=== PATIENT | male | born 1955 | race Caucasian/White ===

== ENCOUNTER → 2016-11-10 | Outpatient (CLI) | payer MEDICARE, BC | LOC: LABWHC1 11:41 | PROVIDERS: ATTEND Radiology Radiation Oncology | DX: C61 Malignant neoplasm of prostate (principal) | CPT/HCPCS: 36415; 84153 ==

== ENCOUNTER → 2017-03-01 | Outpatient (CLI) | payer MEDICARE, BC | END | disposition home or self-care (01) | LOC: LABWHC1 11:30 | PROVIDERS: ATTEND Radiology Radiation Oncology | DX: C61 Malignant neoplasm of prostate (principal) | CPT/HCPCS: 36415; 84153 ==

== ENCOUNTER → 2017-03-08 | Outpatient (CLI) | payer MEDICARE, BC ==
--- NOTE | 2017-03-08 12:07 | MR ---
EXAMINATION TYPE: MR shoulder LT wo con DATE OF EXAM: 03/08/2017 COMPARISON: NONE HISTORY: lt shoulder pain TECHNIQUE: Multiplanar, multisequence imaging of the left shoulder is performed without contrast. FINDINGS: Rotator Cuff: There is a complete tear of the supraspinatus tendon with retraction to the level just distal to the AC joint. There is a partial through thickness tear of the insertion of the infraspinat us tendon. Tendinosis and partial tear at the insertion of the subscapularis tendon with no retractio n. Acromioclavicular Joint: Hypertrophic change of the AC joint with mass effect upon the rotator cuff. Glenohumeral Joint: There is a small amount of fluid in the joint. Joint space appears narrowed. Infe rior glenohumeral ligament intact. Labrum: Needs are suggestive of an anterior superior labral tear. Biceps Tendon: The bicipital tendon is situated within the bicipital groove. Intracapsular portion of the tendon not well seen. Bone marrow signal: Small cystic change involving the humeral head likely related to chronic tendinop athy and impingement. Other: No additional significant abnormality is appreciated. IMPRESSION: 1. Complete tear of the supraspinatus tendon with retraction the level just distal to the AC joint 2. Partial through thickness tear insertion infraspinatus tendon 3. Biceps tendon is not well seen within the intracapsular portion or the anchor tear not excluded. 4. Impingement secondary to hypertrophic change of the AC joint. 5. partial tear and tendinosis distal margin subscapularis tendon. 6. There is atrophy of the musculature including the infraspinatus and supraspinatus muscles. 7. Anterior superior labral tear
== END | disposition home or self-care (01) ==
LOC: RADMRIMAIN 10:19
PROVIDERS: ATTEND Orthopaedic Surgery
DX: M75.122 Complete rotator cuff tear or rupture of left shoulder, not specified as traumatic (principal); S46.812A Strain of other muscles, fascia and tendons at shoulder and upper arm level, left arm, initial encounter; M89.312 Hypertrophy of bone, left shoulder; S43.402A Unspecified sprain of left shoulder joint, initial encounter; M62.512 Muscle wasting and atrophy, not elsewhere classified, left shoulder

== ENCOUNTER 2017-05-03 10:09 | Day surgery (SDC) | payer MEDICARE, BC ==
[2017-05-02 09:44] VITALS: BMI 37.2
[~2017-05-03 10:09] MED LIST: LACTATED RINGERS 1,000 ML IV SCH
[2017-05-03 11:21] VITALS: TEMP 97.1
[2017-05-03] MEDS ORDERED: LABETALOL 5 MG/ML VIAL MDV ONE (11:22)
[2017-05-03] MEDS ORDERED: PROPOFOL 10 MG/ML 20 ML VIAL IV ONE (11:22)
--- NOTE | 2017-05-03 11:25 | P.GSHP ---
History of Present Illness H&P Date: 05/03/17 Chief Complaint: Colon cancer screening Patient here today for screening colonoscopy. He has not had one previously. He does have a history of radiation cancer and finished radiation treatment last year. Some painful hemorrhoids. Past Medical History Past Medical History: Cancer, Hypertension, Myocardial Infarction (TN), Musculoskeletal Disorder, Osteoarthritis (OA), Prostate Disorder, Rheumatoid Arthritis (RA) Additional Past Medical History / Comment(s): HX PROSTATE CA - RADIATION 2015. DJD. Last Myocardial Infarction Date:: 2012 History of Any Multi-Drug Resistant Organisms: None Reported Past Surgical History: Heart Catheterization With Stent, Orthopedic Surgery Additional Past Surgical History / Comment(s): LEFT KNEE ARTHROSCOPY. LT CTR. FLUID DRAINED OFF LUNG. Past Anesthesia/Blood Transfusion Reactions: No Reported Reaction Date of Last Stent Placement:: 2012 Smoking Status: Never smoker - Past Family History Father Family Medical History: Cancer Medications and Allergies Home Medications Medication Instructions Recorded Confirmed Type Aspirin 325 mg PO DAILY 01/15/15 05/02/17 History Cyclobenzaprine [Flexeril] 10 mg PO BID 01/15/15 05/03/17 History DULoxetine HCL [Cymbalta] 60 mg PO DAILY 01/15/15 05/03/17 History Hydrocodone/Acetaminophen 1 tab PO Q6H PRN 01/15/15 05/03/17 History [Hydrocodon-Acetaminophn 10-325] Nitroglycerin Sl Tabs [Nitrostat] 0.4 mg PO DIRECTED PRN 01/15/15 05/02/17 History Atorvastatin [Lipitor] 80 tab PO HS 01/16/15 05/03/17 History Lisinopril [Zestril] 5 mg PO BID 01/16/15 05/03/17 History Metoprolol Tartrate 25 mg PO BID 01/16/15 05/03/17 History Spironolactone [Aldactone] 25 mg PO DAILY 01/16/15 05/03/17 History Sildenafil [Revatio] 20 mg PO TID PRN 05/02/17 05/03/17 History Allergies Allergy/AdvReac Type Severity Reaction Status Date / Time Sulfa (Sulfonamide Allergy Rash/Hives Verified 05/02/17 09:18 Antibiotics) Surgical - Exam Vital Signs Temp Pulse Resp BP Pulse Ox 97.1 F L 65 16 149/83 99 05/03/17 11:19 05/03/17 11:19 05/03/17 11:19 05/03/17 11:19 05/03/17 11:19 Physical exam: General: Well-developed, well-nourished HEENT: Normocephalic, sclerae nonicteric Abdomen: Nontender, nondistended Extremities: No edema Neuro: Alert and oriented Assessment and Plan (1) Colon cancer screening Narrative/Plan: Will proceed with colonoscopy at this time. Status: Acute
--- NOTE | 2017-05-03 11:44 | P.PCN ---
Date of Procedure: 05/03/17 Procedure(s) Performed: PREOPERATIVE DIAGNOSIS: Colon cancer screening POSTOPERATIVE DIAGNOSIS: 1. Ascending colon polyp 2. Mild diverticulosis 3. Proctitis PROCEDURE: Colonoscopy with snare polypectomy ANESTHESIA: MAC SURGEON: Jonah Winter M.D. SPECIMENS: Polyp ENDOSCOPIC PROCEDURE: The patient was placed on the endoscopy table in the left decubitus position. The Olympus colonoscope was inserted into the anus and passed under direct visualization to the base of the cecum. The appendiceal orifice was visualized. From that point the scope was slowly withdrawn inspecting all surfaces carefully. There were no neoplastic inflammatory or polypoid lesions throughout the cecum. In the mid ascending colon a fold of the colon appeared suspicious for adenomatous tissue. This was removed using the snare with cautery technique. The remainder of the transverse descending and sigmoid colon. In the distal rectum there was proctitis from the recent radiation noted. There was mild diverticulosis. Digital rectal examination revealed mild stricture of the anus. Mild tenderness on exam noted. No significant hemorrhoidal disease identified. The patient was taken to the recovery room in stable condition per anesthesia guidelines. RECOMMENDATIONS: Increase fiber. Await biopsy results.
[2017-05-03 12:14] VITALS: BP 138/75; PULSE 75; RESP 18
== END 2017-05-03 12:41 | disposition home or self-care (01) ==
LOC: ORWHC2ENDO 10:09
PROVIDERS: ATTEND Surgery
DX: Z12.11 Encounter for screening for malignant neoplasm of colon (principal); D12.2 Benign neoplasm of ascending colon; K57.30 Diverticulosis of large intestine without perforation or abscess without bleeding; K62.7 Radiation proctitis; K62.4 Stenosis of anus and rectum; I10 Essential (primary) hypertension; M19.90 Unspecified osteoarthritis, unspecified site; M06.9 Rheumatoid arthritis, unspecified; E78.5 Hyperlipidemia, unspecified; I25.10 Atherosclerotic heart disease of native coronary artery without angina pectoris; I25.2 Old myocardial infarction; Z88.2 Allergy status to sulfonamides; Z79.82 Long term (current) use of aspirin; Z79.899 Other long term (current) drug therapy; Z85.46 Personal history of malignant neoplasm of prostate; Z92.3 Personal history of irradiation; Z95.5 Presence of coronary angioplasty implant and graft; Z80.9 Family history of malignant neoplasm, unspecified
CPT/HCPCS: 45385; 88305; J2704

== ENCOUNTER → 2017-05-23 | Outpatient (CLI) | payer MEDICARE, BC ==
[2017-05-23 10:43] LABS: Basophils # (A) 0.1 k/uL (0-0.2); Basophils % (A) 1 %; CH 32.2; CHCM 32.4; Eosinophils # (A) 0.1 k/uL (0-0.7); Eosinophils % (A) 2 %; HCT 47.6 % (39.0-53.0); HDW 2.19; HGB 15.2 gm/dL (13.0-17.5); Luc # (Auto) 0.22; Luc % (Auto) 4; Lymphocytes # (A) 1.1 k/uL (1.0-4.8); Lymphocytes % (A) 19 %; MCH 31.9 pg (25.0-35.0); MCHC 31.9 g/dL (31.0-37.0); Mean Platelet Volume 6.3; Monocytes # (A) 0.5 k/uL (0-1.0); Monocytes % (A) 8 %; Neutrophils # (A) 3.9 k/uL (1.3-7.7); Neutrophils % (A) 66 %; RBC 4.76 m/uL (4.30-5.90); RDW 12.6 % (11.5-15.5); WBC 5.9 k/uL (3.8-10.6); WBC (Perox) 6.32
[2017-05-23 10:52] LABS: ALT 37 U/L (21-72); AST 21 U/L (17-59); Alkaline Phosphatase 58 U/L (38-126); Anion Gap 10 mmol/L; Blood Urea Nitrogen 15 mg/dL (9-20); Calcium 9.2 mg/dL (8.4-10.2); Carbon Dioxide 26 mmol/L (22-30); Chloride 104 mmol/L (98-107); Cholesterol 163 mg/dL (<200); Glucose 107 mg/dL (74-99); HDL Cholesterol 69 mg/dL (40-60); Non-African American GFR(MDRD) >60 (>60 ml/min/1.73 sqM); Sodium 140 mmol/L (137-145); Total Bilirubin 0.6 mg/dL (0.2-1.3); Total Protein 6.6 g/dL (6.3-8.2)
[2017-05-23 10:59] LABS: Potassium 4.6 mmol/L (3.5-5.1)
[2017-05-23 13:38] LABS: Hemoglobin A1C 5.6 % (4.2-6.1)
== END | disposition home or self-care (01) ==
LOC: LABWHC1 10:08
PROVIDERS: ATTEND Family Medicine
DX: I25.10 Atherosclerotic heart disease of native coronary artery without angina pectoris (principal); E66.9 Obesity, unspecified
CPT/HCPCS: 36415; 80053; 80061; 83036; 84443; 85025

== ENCOUNTER → 2017-06-12 | Outpatient (CLI) | payer MEDICARE, BC | END | disposition home or self-care (01) | LOC: LABWHC1 11:46 | PROVIDERS: ATTEND Radiology Radiation Oncology | DX: C61 Malignant neoplasm of prostate (principal) | CPT/HCPCS: 36415; 84153 ==

== ENCOUNTER 2017-09-15 08:01 | Day surgery (SDC) | payer MEDICARE, BC ==
[2017-09-11 11:13] VITALS: BMI 37.8
--- NOTE | 2017-09-14 09:15 | HP ---
HISTORY AND PHYSICAL CHIEF COMPLAINT: Left shoulder pain. HISTORY OF PRESENT ILLNESS: The patient is a 62-year-old right-hand dominant gentleman on disability who presents with progressive left shoulder pain after a previous injury. He is having pain with overhead use and at night. He has tried previous medications and injections with only partial temporary relief. He notes the pain limits his normal function and activities. PAST MEDICAL HISTORY: Significant for prostate cancer, coronary artery disease, hypertension. PAST SURGICAL HISTORY: Significant for previous cardiac stent placement. CURRENT MEDICATIONS: 1. Aspirin. 2. Atorvastatin. 3. Cymbalta. 4. Doxazosin. 5. Flexeril. 6. Lisinopril. 7. Metoprolol. 8. Nitroglycerin. 9. [place]. 10.Spironolactone. 11.Plavix. ALLERGIES: He notes allergies to SULFA. FAMILY HISTORY: Significant for cancer. SOCIAL HISTORY: Negative for current tobacco or alcohol use. REVIEW OF SYSTEMS: Sixteen-point review of systems otherwise reviewed and is noncontributory. PHYSICAL EXAMINATION: On examination, the patient is approximately 5 feet 8 inches, 251 pounds of endomorphic habitus. HEENT exam is nonfocal. Neck is supple. On examination of his left shoulder, he is tender about the anterior subacromial space and the acromioclavicular joint. He has moderate subacromial crepitus. Active range of motion forward elevation 95 degrees, external rotation with arm to side 45 degrees, internal rotation to L1. Passively I am able to forward elevate him to 160 degrees. Motor strength is 4+ over 5 for abduction and external rotation. Mendoza, Neer and Speed tests are positive. He does have some pain with cross-body adduction. His distal neurovascular exam otherwise appears intact in the left upper extremity. X-rays of the left shoulder obtained in the office show acromioclavicular joint osteoarthrosis along with diminished humeral head to acromial distance. MRI report for left shoulder shows evidence of a supraspinatus and infraspinatus tendon tear with some retraction. There also appears to be a tear of the superior labrum in the intra-articular portion of the biceps. IMPRESSION: 1. Left shoulder symptomatic rotator cuff tear. 2. Left acromioclavicular joint osteoarthrosis. 3. Left bicipital tendinitis. RECOMMENDATIONS: I talked to the patient at length regarding his treatment options. At this point, his shoulder is quite symptomatic. He opts to proceed with surgery. We will plan to proceed with arthroscopic evaluation with probable subacromial decompression, probable rotator cuff repair versus debridement, biceps debridement, and distal clavicular resection. We will likely perform that as an outpatient procedure. Risks and benefits were discussed at length in layman's terms. The patient underwent preoperative cardiac evaluation by Dr. De Leon. He underwent preoperative medical evaluation by Dr. Brambila. MMALIREZAL / TATIN: [id number] /
[~2017-09-15 08:01] MED LIST changes: +DEXAMETHASONE SOD PHOSPHATE 10 MG/ML 1 ML VIAL IV ONE; +MIDAZOLAM 2 MG/2 ML VIAL IV PRN; +MORPHINE SULFATE 4 MG/ML SYRINGE IV PRN; +ONDANSETRON 4 MG/2 ML VIAL IVP ONE; +SCOPOLAMINE 1.5MG/72HR PATCH TRANSDERM ONE; +ceFAZolin IN SWFI 2 GM/20 ML SYRINGE IVP ONE
[2017-09-15] MEDS ORDERED: LACTATED RINGERS 1,000 ML IV ONE (08:12)
[2017-09-15] MEDS ORDERED: LIDOCAINE 1% 20 ML VIAL (10MG/ML) FOR IV START INTRADERMA ONE (08:12)
[2017-09-15] MEDS ORDERED: fentaNYL (PF) 50 MCG/ML 2 ML AMP IV ONE (09:18)
--- NOTE | 2017-09-15 09:37 | P.ONQ ---
Anesthesiology Proc Note - PNB - Peripheral Nerve Block Performed Left Interscalene Single Time Out Performed: Yes (917) Procedure Start Time: :18 Procedure Stop Time: :24 Indication: Acute Post-Operative Pain Sedation Type: Sedate with meaningful contact maintained Preparation: Sterile Prep Position: Supine Catheter: None Needle Types: Facet Needle Size: 50mm (2") Needle Gauge: 20 Technique: Ultrasound Injectate: 0.5% Ropivacaine (see comment for volume) (30 mls Ropivacaine) Blood Aspirated: No Pain Paresthesia on Injection Noted: No Resistance on Injection: Normal Events: Uneventful and Well Tolerated
--- NOTE | 2017-09-15 11:46 | P.OP ---
Date of Procedure: 09/15/17 Preoperative Diagnosis: Left shoulder symptomatic rotator cuff tear Postoperative Diagnosis: 4 cm retracted left rotator cuff tear/superior labral tear/acromioclavicular joint arthritis/previous rupture long head of the biceps Procedure(s) Performed: Left shoulder arthroscopic subacromial decompression/distal clavicular resection /biceps debridement/superior labral debridement/rotator cuff repair Implants: Mitec 4.75 mm corkscrew anchor 2, 5.5 mm corkscrew anchor 2 Anesthesia: TRINI, regional Surgeon: Jovanni Villanueva Ledger Poster #1: Anton Gregorio Estimated Blood Loss (ml): 10 Pathology: none sent Condition: stable Disposition: PACU Indications for Procedure: The patient's a 62-year-old male who presents with progressive left shoulder pain despite conservative measures. A discussion of the risks and benefits of operative intervention versus continued conservative measures was made with the patient. Specific risks of surgery to include infection, neurovascular injury, development of blood clots, possible tendon rerupture, possible postoperative stiffness and need for subsequent procedures was discussed. Informed consent was obtained. Operative Findings: As below Description of Procedure: The patient was brought to the operating room, and after induction of general anesthesia was placed in a beachchair position. Bony prominences were appropriately padded. I examined the left shoulder. There was no gross block to passive motion. There was no gross glenohumeral instability. The left upper extremity was prepped and draped in normal fashion. The bony outlines of the acromion, distal clavicle, and coracoid process were outlined with a skin marker. The glenohumeral joint was inflated with 50 mL of saline utilizing a spinal needle from posterior approach. A posterior portal was made through a 5 mm skin incision 1 cm medial and inferior to the posterior lateral border of the acromion. A blunt trocar was used to easily into the joint. Diagnostic arthroscopy was performed. An anterior portal was made just lateral to the coracoid process entering the joint above the subscapularis tendon. The subscapularis and anterior labrum appeared to be intact. The biceps appeared to previously been ruptured and the remaining portion was debrided back with a motorized shaver. A superior labral tear was also noted that was debrided back to stable base with a motorized shaver. Grade 2/3 chondral changes were noted diffusely involving the humeral head in its central portion. The posterior labrum was intact. The inferior recess was inspected. On inspection of the rotator cuff, a large tear involving the supraspinatus and infraspinatus tendons was noted. This was retracted to the mid humeral head. The arthroscope was then placed in the subacromial space. A lateral portals made through a 5 mm skin incision 2 cm inferior to the anterior lateral border of the acromion. The soft tissue on the undersurface the acromion was debrided with a motorized shaver and with electrocautery clearly defining the anterior medial and lateral borders as well as the distal clavicle. An anterior inferior acromioplasty was performed with a motorized gabriel starting anterolateral, then extending this posteriorly, then extending this medially. I was able to convert to a flat acromion. This was viewed from the posterior and lateral viewing portals. The distal 5 mm of the clavicle was then resected utilizing the motorized gabriel. Attention was then paid towards the rotator cuff. A traction suture was placed to help mobilizes. Subacromial adhesions were bluntly dissected. I was able to bring this back to the greater tuberosity. An accessory superior lateral portal was made through a 4 mm skin incision just off the lateral edge of the acromion. The greater tuberosity was lightly decorticated utilizing a motorized gabriel down a bleeding bony surface. 2 anchors were then placed just off the articular surface. One anchor was unloaded therefore a third anchor was placed. Good purchase obtained. The #2 tape was then passed through the rotator cuff utilizing a scorpion suture passer. A lateral row was created crisscrossing these tapes utilizing 2 anchors. 5.5 mm anchor were placed after appropriately tensioning the repair. Good purchase was obtained. Final arthroscopic view showed adequate repair of the rotator cuff with compression. The arthroscope was then removed. The portals were closed with simple 3-0 nylon suture. A sterile dressing was applied in addition to an abductor brace. The patient was then awoken from general anesthesia and transferred to recovery room in good condition. Blood loss was estimated at 10 mL. No complications were incurred. Sponge and needle counts were correct at the end the case.
[2017-09-15 11:48] VITALS: TEMP 98.6
[2017-09-15 12:12] VITALS: RESP 16
[2017-09-15 12:58] VITALS: PULSE 66
[2017-09-15 13:11] VITALS: BP 157/86
== END 2017-09-15 13:42 | disposition home or self-care (01) ==
LOC: OR 08:01
PROVIDERS: ATTEND Orthopaedic Surgery
DX: S46.012A Strain of muscle(s) and tendon(s) of the rotator cuff of left shoulder, initial encounter (principal); S43.492A Other sprain of left shoulder joint, initial encounter; M19.012 Primary osteoarthritis, left shoulder; S46.112A Strain of muscle, fascia and tendon of long head of biceps, left arm, initial encounter; X58.XXXA Exposure to other specified factors, initial encounter; M75.02 Adhesive capsulitis of left shoulder; M75.22 Bicipital tendinitis, left shoulder; M24.812 Other specific joint derangements of left shoulder, not elsewhere classified; M75.42 Impingement syndrome of left shoulder; I11.9 Hypertensive heart disease without heart failure; I25.10 Atherosclerotic heart disease of native coronary artery without angina pectoris; M51.36 Other intervertebral disc degeneration, lumbar region; N52.9 Male erectile dysfunction, unspecified; M79.7 Fibromyalgia; I25.2 Old myocardial infarction; E78.2 Mixed hyperlipidemia; E66.9 Obesity, unspecified; Z68.38 Body mass index [BMI] 38.0-38.9, adult; Z85.46 Personal history of malignant neoplasm of prostate; Z92.3 Personal history of irradiation; M43.16 Spondylolisthesis, lumbar region; G89.29 Other chronic pain; Z95.5 Presence of coronary angioplasty implant and graft; Z79.899 Other long term (current) drug therapy; Z79.02 Long term (current) use of antithrombotics/antiplatelets; Z79.82 Long term (current) use of aspirin; Z88.2 Allergy status to sulfonamides; Z82.49 Family history of ischemic heart disease and other diseases of the circulatory system
CPT/HCPCS: 64415; 29826; 29827; 29824; C1713 ×3; J2250; J1100; J2405; J3010; J0690

== ENCOUNTER → 2017-09-27 | Outpatient (CLI) | payer MEDICARE, BC | END | disposition home or self-care (01) | LOC: LABWHC1 11:27 | PROVIDERS: ATTEND Radiology Radiation Oncology | DX: C61 Malignant neoplasm of prostate (principal) | CPT/HCPCS: 36415; 84153 ==

== ENCOUNTER → 2018-02-05 | Outpatient (CLI) | payer MEDICARE, BC | END | disposition home or self-care (01) | LOC: LABWHC1 12:24 | PROVIDERS: ATTEND Radiology Radiation Oncology | DX: C61 Malignant neoplasm of prostate (principal) | CPT/HCPCS: 36415; 84153 ==

== ENCOUNTER → 2018-06-14 | Outpatient (CLI) | payer MEDICARE, BC | END | disposition home or self-care (01) | LOC: LABWHC1 11:17 | PROVIDERS: ATTEND Ophthalmology | DX: C61 Malignant neoplasm of prostate (principal) | CPT/HCPCS: 36415; 84153 ==

== ENCOUNTER → 2018-06-18 | Outpatient (CLI) | payer MEDICARE, BC | LOC: LABPAT 11:27 | PROVIDERS: ATTEND Orthopaedic Surgery | DX: Z01.812 Encounter for preprocedural laboratory examination (principal) | CPT/HCPCS: 87070 ==

== ENCOUNTER 2018-06-26 10:19 | Inpatient (IN) | payer MEDICARE, BC ==
[2018-06-19 15:18] VITALS: BMI 40.7
--- NOTE | 2018-06-25 09:18 | HP ---
HISTORY AND PHYSICAL CHIEF COMPLAINT: Right knee pain. HISTORY OF PRESENT ILLNESS: The patient is a 63-year-old retired gentleman who presents with progressive right knee pain secondary to osteoarthrosis despite extensive conservative measures. He notes the pain from his arthritis limits his normal function and activities. PAST MEDICAL HISTORY: Significant for heart disease, prostate cancer, and hypertension. PAST SURGICAL HISTORY: Significant for cardiac stent placement. CURRENT MEDICATIONS: 1. Baclofen. 2. Cymbalta. 3. Ecotrin. 4. Lisinopril. 5. Metoprolol. 6. [place]. 7. Spironolactone. ALLERGIES: He allergies to SULFA. FAMILY HISTORY: Significant for cancer and ALS. SOCIAL HISTORY: Negative for current tobacco or alcohol use. REVIEW OF SYSTEMS: Sixteen-point review of systems otherwise reviewed and is noncontributory. PHYSICAL EXAMINATION: On examination, the patient is approximately 5 feet, 8 inches, 268 pounds of endomorphic habitus with a BMI of 40.75. HEENT exam is nonfocal. Neck is supple. He has painless passive motion of the right hip. Straight leg raise is negative. Active motion right knee -12 to 90 degrees of flexion. He has a large effusion. He is tender about the medial joint line. Collaterals are stable, Azalia's negative, Tiago's is equivocal. He has genu varum alignment. His distal neurovascular exam appears intact in the right lower extremity. Previous weightbearing notch lateral and Merchant views of the right knee obtained in the office show severe medial and patellofemoral compartment narrowing. IMPRESSION: 1. Right knee severe medial and patellofemoral compartment osteoarthrosis. 2. Body mass index 40.75. 3. History of coronary artery disease. RECOMMENDATIONS: I talked to the patient at length regarding his condition and treatment options. At this point, he is severely limited because of pain related to his osteoarthrosis. After thorough discussion, he opts to proceed with surgery. We will plan to proceed with right total knee arthroplasty. We will institute DVT prophylaxis postoperatively. He underwent preoperative medical evaluation by Dr. Brambila in addition to preoperative cardiac evaluation. MMODL / IJN: [id number] /
[~2018-06-26 10:19] MED LIST changes: -DEXAMETHASONE SOD PHOSPHATE 10 MG/ML 1 ML VIAL IV ONE; -LACTATED RINGERS 1,000 ML IV SCH; +LIDOCAINE 1% 20 ML VIAL (10MG/ML) FOR IV START INTRADERMA PRN; +MELOXICAM 7.5 MG TAB PO ONE; -MORPHINE SULFATE 4 MG/ML SYRINGE IV PRN; -ONDANSETRON 4 MG/2 ML VIAL IVP ONE; -SCOPOLAMINE 1.5MG/72HR PATCH TRANSDERM ONE; +VANCOMYCIN 1,750 MG in SODIUM CHLORIDE 0.9% 500 ML 500 ML IVPB ONE; -ceFAZolin IN SWFI 2 GM/20 ML SYRINGE IVP ONE; +fentaNYL (PF) 50 MCG/ML 2 ML AMP IV PRN
[2018-06-26] MEDS ORDERED: ACETAMINOPHEN TAB 500 MG TAB PO ONE (11:45)
[2018-06-26] MEDS: LACTATED RINGERS 1,000 ML IV SCH ×3 (11:47→17:06)
[2018-06-26] MEDS ORDERED: ONDANSETRON 4 MG/2 ML VIAL IVP ONE (11:55)
[2018-06-26] MEDS ORDERED: DEXAMETHASONE SOD PHOSPHATE 4 MG/ML 1 ML VIAL IVP ONE (11:56)
[2018-06-26] MEDS ORDERED: MIDAZOLAM 2 MG/2 ML VIAL IVP ONE (11:59)
[2018-06-26] MEDS ORDERED: TRANEXAMIC ACID 1,000 MG in SODIUM CHLORIDE 0.9% 50 ML IVPB ONE ×4 (12:00)
[2018-06-26] MEDS ORDERED: ROPIVACAINE 1,100 MG, SODIUM CHLORIDE 0.9% 500 ML 330 ML MISCELLANE PRN ×2 (12:20)
--- NOTE | 2018-06-26 12:22 | P.ONQ ---
Anesthesiology Proc Note - PNB - Peripheral Nerve Block Performed Right Adductor Canal Infusion Time Out Performed: Yes Procedure Start Time: 11:59 Procedure Stop Time: 12:06 Indication: Acute Post-Operative Pain, Requested by physician Sedation Type: Sedate with meaningful contact maintained Preparation: Sterile Dressing Position: Supine Catheter: Indwelling Needle Types: On-Q Needle Size: 100mm (4") Needle Gauge: 21 Technique: Ultrasound Injectate: 0.5% Ropivacaine (see comment for volume) (ropi .5 % 20cc)
[2018-06-26] MEDS ORDERED: PROPOFOL 10 MG/ML 20 ML VIAL IV ONE (13:17)
[2018-06-26] MEDS ORDERED: fentaNYL (PF) 50 MCG/ML 2 ML AMP ONE (13:17)
[2018-06-26] MEDS ORDERED: ePHEDrine SULFATE/0.9% NACL/PF 50 MG/5 ML SYRINGE IV ONE (13:17)
[2018-06-26] MEDS ORDERED: MIDAZOLAM 2 MG/2 ML VIAL ONE (13:17)
[2018-06-26] MEDS ORDERED: SODIUM CHLORIDE 0.9% 100 ML BAG ONE (13:17)
[2018-06-26] MEDS ORDERED: TRANEXAMIC ACID 1,000 MG/10 ML VIAL ONE (13:17)
[2018-06-26] MEDS ORDERED: ROPIVACAINE 246.25 MG, EPINEPHrine 0.5 MG, KETOROLAC 30 MG, cloNIDine HCL/PF 80 MCG, WA... MISCELLANE ONE ×5 (13:25)
[2018-06-26] MEDS ORDERED: ceFAZolin 3,000 MG in SODIUM CHLORIDE 0.9% IRRIGATIO 3,000 ML IRRIGATION ONE (13:50)
[2018-06-26] MEDS ORDERED: LACTATED RINGERS 1,000 ML IV ONE ×2 (14:57)
[2018-06-26] MEDS ORDERED: NALOXONE 0.4 MG/ML 1 ML VIAL IV PRN (15:11)
[2018-06-26] MEDS ORDERED: HYDROcodone/APAP 10-325MG 1 EACH TAB PO PRN (15:16)
--- NOTE | 2018-06-26 15:40 | P.OP ---
Date of Procedure: 06/26/18 Preoperative Diagnosis: Severe right knee tricompartmental osteoarthrosis Postoperative Diagnosis: Same Procedure(s) Performed: Right total knee arthroplastycementedposterior stabilized, ORIF iatrogenic nondisplaced right lateral distal femoral condyle fracture Implants: Depuy Attune size 8 cemented femoral component, size 8 cemented tibial component , 9 mm articular surface, 38 mm cemented patellar component. 2 cancellus screws measuring 6.5 mm x 90 mm were placed. Anesthesia: regional, local, spinal Surgeon: Jovanni Villanueva Hostess Party Sales Representative #1: Anton Gregorio Estimated Blood Loss (ml): 100 Pathology: other (Bone fragments) Condition: stable Disposition: PACU Indications for Procedure: The patient's a 63-year-old male who presents with progressive right knee pain secondary to osteoarthrosis despite extensive conservative measures. A discussion of the risks and benefits of operative intervention versus continued conservative measures was made with patient. He opted to proceed with surgery. Operative risks to include infection, neurovascular injury, development of blood clots, possible component loosening, possible component failure, possible fracture, and possible need for subsequent procedures was discussed. Informed consent was obtained. Operative Findings: As below Description of Procedure: The patient was brought to the operating room, and after induction of spinal anesthesia the right lower extremity was prepped and draped in normal fashion. The tourniquet was inflated to 270 mmHg. A longitudinal incision extending 3 finger breaths above the superior pole of the patella extending to the medial aspect of the tibial tubercle was then made. The skin and subcu tissues were divided sharply. Electrocautery was used for hemostasis. A medial parapatellar arthrotomy is performed. The medial soft tissues to include the superficial and deep portions of the medial collateral ligament as well as the medial hamstring tendons were elevated subperiosteally. The proximal medial tibia osteophytes were carefully removed. The patella was everted. A portion of the retropatellar fat pad was excised sharply. The knee was flexed. The anterior cruciate ligament was sacrificed. A starting hole was made in the distal femur 1 cm anterior to the posterior cruciate ligament origin. An intramedullary femoral guide was gently inserted planning on 5 valgus distal cut with 9 mm distal resection. The cutting block was pinned in place. The distal cut was then made. The posterior referencing sizing guide was utilized. I felt size 8 was most appropriate. 3 of external rotation was built into the system and verified off the trans-epicondylar axis and the posterior condyles. The cutting block was pinned in place. The anterior, posterior, and chamfer cuts were then made. The bone fragments were removed. The intercondylar guide was placed and a reciprocating saw was used to make intracondylar cut. The bone was removed in one fragment. The trial component was then placed and was fully seated. There was good anterior to posterior medial to lateral fit. Attention was then paid towards preparing the proximal tibia. An extra medullary guide was utilized in line with the tibial shaft and second metatarsal distally. I planned on a 0 posterior slope with 2 mm resection from the medial compartment. The cutting block was pinned in place. The proximal tibial cut was made in the bone removed in one fragment. The proximal tibia sized most appropriate size 8. The remnants of the medial and lateral menisci were excised at the capsular junction with electrocautery. The trial tibial component was placed along with the trial femoral component and a 9 mm articular surface. At this point I noted a nondisplaced fracture extending from the lateral femoral condyle into the metaphysis. Fixation was obtained utilizing 6.5 mm x 90 mm screws. 2 were placed. There was good compression at the fracture site. Trial reduction was again obtained utilizing the same components. I was able to obtain full flexion and extension with good stability with varus and valgus stress. After several flexion and extension cycles, the tibial rotation was marked with electrocautery in line with the medial one third of the tibial tubercle. Attention was paid towards preparing the patella. A patella reamer was utilized extending to 14 mm bone stock. A good flush cut was made. The patella sized most appropriately 38 mm. The peg holes were drilled. Trial components placed. The knee was taken through range of motion. I had good patellofemoral tracking with no hands technique. The trial components were then removed. The flexion and extension gaps were checked and felt to be symmetric. The posterior soft tissues were injected with ropivacaine. The posterior osteophytes of the distal femur were carefully removed with a curved osteotome. The bony surfaces were prepared with pulsatile lavage and dried. The tibial component was then cemented in placed and was fully seated. Excess cement was removed. The femoral component was cemented in placed and was fully seated. Excess cement was removed. The trial 9 mm articular surface was placed in the knee was put in full extension. The patella component cemented in place. After the cement had sufficiently hardened , the knee was again taken through range of motion. Again I was able to obtain full flexion and extension with good stability with varus and valgus. The trial articular surface was removed and the final one inserted. This was gently impacted. Care taken to avoid any soft tissue interposition. Pulsatile lavage was again utilized. The tourniquet was deflated the proximal a 70 minutes total tourniquet time. Final hemostasis was obtained with electrocautery. The second dose of IV TXA was given. A medial parapatellar arthrotomy was closed with #2 Ethibond suture. The subcutaneous tissues reapproximated interrupted 2-0 Vicryl sutures. The skin was reprepped with 30 subarticular strata fix suture. Skin tape and adhesive was applied. A sterile dressing was applied. The patient was then awoken from sedation and transferred to recovery room in good condition. Blood loss was estimated at 100 mL. Sponge and needle counts were correct in the case. Complications iatrogenic nondisplaced lateral distal femoral condyle fracture.
--- NOTE | 2018-06-26 16:00 | XR ---
EXAMINATION TYPE: XR knee limited RT DATE OF EXAM: 06/26/2018 COMPARISON: None HISTORY: Post TKA TECHNIQUE: 2 view right knee FINDINGS: Tibial and femoral components have been placed. Screws are within the distal femur. Postsu rgical soft tissue changes are present. Anterior superior patellar spurring is present. IMPRESSION: 1. There may be a lateral distal femoral cortical fracture, likely repair with the screws. 2. No additional areas suspicious for an acute fractures identified.
[2018-06-26] MEDS ORDERED: HYDROmorphone 1 MG/ML 1 ML SYRINGE IVP PRN (16:39)
[2018-06-26] MEDS: HYDROmorphone 1 MG/ML 1 ML SYRINGE IVP PRN ×2 (17:06→21:37)
[2018-06-26] MEDS: HYDROcodone/APAP 10-325MG 1 EACH TAB PO PRN (17:34)
[2018-06-26] MEDS: traMADol 50 MG TAB PO SCH ×2 (17:35→21:36)
[2018-06-27] MEDS ORDERED: VANCOMYCIN 1,750 MG in SODIUM CHLORIDE 0.9% 500 ML 500 ML IVPB ONE ×2
[2018-06-27 00:31] VITALS: RESP 16
[2018-06-27] MEDS ORDERED: VANCOMYCIN 1,750 MG in SODIUM CHLORIDE 0.9% 250 ML IVPB ONE (01:30)
[2018-06-27] MEDS: HYDROcodone/APAP 10-325MG 1 EACH TAB PO PRN ×3 (04:41→15:24)
[2018-06-27 07:42] VITALS: PULSE 72
[2018-06-27 07:49] LABS: Basophils % (A) 0 %; Eosinophils % (A) 0 %; HCT 36.9 % (39.0-53.0); HGB 12.4 gm/dL (13.0-17.5); Lymphocytes # (A) 0.9 k/uL (1.0-4.8); Lymphocytes % (A) 10 %; MCH 32.8 pg (25.0-35.0); MCHC 33.6 g/dL (31.0-37.0); MCV 97.7 fL (80.0-100.0); Mean Platelet Volume 6.6; Monocytes # (A) 0.6 k/uL (0-1.0); Monocytes % (A) 7 %; Neutrophils # (A) 7.1 k/uL (1.3-7.7); Neutrophils % (A) 81 %; Platelet Count 228 k/uL (150-450); RBC 3.77 m/uL (4.30-5.90); RDW 12.8 % (11.5-15.5); WBC 8.8 k/uL (3.8-10.6)
[2018-06-27] MEDS: traMADol 50 MG TAB PO SCH ×2 (08:20→12:25)
[2018-06-27] MEDS ORDERED: RIVAROXABAN 10 MG TAB PO SCH (09:00)
--- NOTE | 2018-06-27 09:45 | P.PN ---
Progress Note - Text Progress Note Date: 06/27/18 The patient is status post[1] adductor canal catheter placement. The catheter was placed for postoperative pain control, status post total right knee arthroplasty. Ropivacaine 0.2% is infusing at 5 mLs per hour. The patient has no complaints of right lower extremity numbness or weakness. Patient's VAS score is 3 -10. Assessment: Patient's adductor canal catheter is in place and working appropriately. Plan: continue infusion and adjust it as needed.
--- NOTE | 2018-06-27 12:36 | P.CONS ---
History of Present Illness - Reason for Consult Commendations regarding antihypertensive medications. - History of Present Illness Patient is a pleasant 63-year-old gentleman underwent right knee arthroplasty elective yesterday. Patient is clinically doing well did pass gas did not move his bowel yet. Patient doesn't have a surgical drain. Patient does have history of coronary artery disease with stents years ago patient is on full- strength aspirin now being started on anticoagulation for right knee arthroplasty because of which I'll switch him to a baby aspirin starting tomorrow. Blood pressure is bit elevated will be resumed on his lisinopril. Patient denied any fever chills dysuria nausea vomiting. Review of Systems REVIEW OF SYSTEMS: CONSTITUTIONAL: No fever, no malaise, no fatigue. HEENT: No recent visual problems or hearing problems. Denied any sore throat. CARDIOVASCULAR: No chest pain, orthopnea, PND, no palpitations, no syncope. PULMONARY: No shortness of breath, no cough, no hemoptysis. GASTROINTESTINAL: No diarrhea, no nausea, no vomiting, no abdominal pain. Normoactive bowel sounds. NEUROLOGICAL: No headaches, no weakness, no numbness. HEMATOLOGICAL: Denies any bleeding or petechiae. GENITOURINARY: Denies any burning micturition, frequency, or urgency. MUSCULOSKELETAL/RHEUMATOLOGICAL: Denies any joint pain, swelling, or any muscle pain. ENDOCRINE: Denies any polyuria or polydipsia. The rest of the 14-point review of systems is negative. Past Medical History Past Medical History: Cancer, Fibromyalgia, Hypertension, Myocardial Infarction (IN), Musculoskeletal Disorder, Osteoarthritis (OA), Prostate Disorder, Rheumatoid Arthritis (RA) Additional Past Medical History / Comment(s): HX PROSTATE CA - RADIATION 2015. DJD,back pain, pt reports "abscessed teeth" enc to notify dr odom pre- procedure Last Myocardial Infarction Date:: 2012 LAD History of Any Multi-Drug Resistant Organisms: None Reported Past Surgical History: Heart Catheterization With Stent, Orthopedic Surgery Additional Past Surgical History / Comment(s): LEFT KNEE ARTHROSCOPY. LT CTR. FLUID DRAINED OFF between LUNG space. Past Anesthesia/Blood Transfusion Reactions: No Reported Reaction Additional Past Anesthesia/Blood Transfusion Reaction / Comm: no hx blood transfusion Date of Last Stent Placement:: 2012 Past Psychological History: No Psychological Hx Reported Smoking Status: Never smoker Past Alcohol Use History: Occasional Past Drug Use History: Marijuana Additional Drug Use History / Comment(s): USE 1-2X PER DAY. - Past Family History Father Family Medical History: Cancer Medications and Allergies Home Medications Medication Instructions Recorded Confirmed Type Aspirin 325 mg PO DAILY 01/15/15 06/26/18 History Cyclobenzaprine [Flexeril] 10 mg PO HS PRN 01/15/15 06/26/18 History Nitroglycerin Sl Tabs [Nitrostat] 0.4 mg PO Q5M PRN 01/15/15 06/26/18 History Atorvastatin [Lipitor] 80 tab PO HS 01/16/15 06/26/18 History Metoprolol Tartrate 25 mg PO BID 01/16/15 06/26/18 History Spironolactone [Aldactone] 25 mg PO DAILY 01/16/15 06/26/18 History Sildenafil [Revatio] 20 mg PO TID PRN 05/02/17 06/26/18 History Oxybutynin Chloride 5 mg PO BID 06/19/18 06/26/18 History Silodosin [Rapaflo] 8 mg PO DAILY 06/19/18 06/26/18 History DULoxetine HCL [Cymbalta] 30 mg PO TID 06/26/18 06/26/18 History Hydrocodone/Acetaminophen [Singer 1 tab PO Q6H PRN 06/26/18 06/26/18 History 10-325] Lisinopril [Zestril] 10 mg PO BID 06/26/18 06/26/18 History Allergies Allergy/AdvReac Type Severity Reaction Status Date / Time Sulfa (Sulfonamide Allergy Rash/Hives Verified 06/26/18 16:52 Antibiotics) Physical Exam Vitals: Vital Signs Temp Pulse Pulse Pulse Resp BP Pulse Ox 06/27/18 07:00 97.8 F 72 16 164/82 97 06/27/18 00:39 16 06/26/18 23:00 99 F 87 16 132/67 95 06/26/18 20:00 98.0 F 86 18 158/77 95 06/26/18 18:15 85 18 151/81 95 06/26/18 18:00 73 18 145/68 96 06/26/18 17:45 77 18 160/70 96 06/26/18 17:30 76 18 177/97 97 06/26/18 17:15 72 18 159/80 98 06/26/18 17:00 69 18 159/88 98 06/26/18 16:45 70 18 150/79 98 06/26/18 16:30 98 F 75 18 130/67 98 06/26/18 16:27 97 F L 75 20 98 06/26/18 16:16 67 16 132/65 97 06/26/18 16:00 67 16 148/67 99 06/26/18 15:45 61 16 115/69 99 06/26/18 15:32 97 F L 66 16 134/60 97 06/26/18 15:30 78 16 151/72 95 06/26/18 15:15 83 16 152/74 95 06/26/18 15:00 80 16 154/76 95 06/26/18 14:45 80 16 161/83 96 06/26/18 14:30 79 16 151/77 97 06/26/18 14:15 76 16 154/78 96 06/26/18 14:00 79 16 157/81 95 06/26/18 13:45 73 16 141/69 96 06/26/18 13:30 98 F 77 16 135/66 96 Intake and Output 06/26/18 06/27/18 06/27/18 22:59 06:59 14:59 Intake Total 840 Output Total 400 75 Balance 440 -75 Intake: IV 300 Oral 540 Output: Urine 300 75 Estimated Blood Loss 100 Other: Voiding Method Urinal # Voids 2 Weight 121.563 kg PHYSICAL EXAMINATION: GENERAL: The patient is alert and oriented x3, not in any acute distress. Well developed, well nourished. HEENT: Pupils are round and equally reacting to light. EOMI. No scleral icterus. No conjunctival pallor. Normocephalic, atraumatic. No pharyngeal erythema. No thyromegaly. CARDIOVASCULAR: S1 and S2 present. No murmurs, rubs, or gallops. PULMONARY: Chest is clear to auscultation, no wheezing or crackles. ABDOMEN: Soft, nontender, nondistended, normoactive bowel sounds. No palpable organomegaly. MUSCULOSKELETAL: Deferred to orthopedic surgery EXTREMITIES: No cyanosis, clubbing, or pedal edema. NEUROLOGICAL: Gross neurological examination did not reveal any focal deficits. SKIN: No rashes. Results CBC & Chem 7: 06/27/18 07:09 Labs: Abnormal Lab Results - Last 24 Hours (Table) 06/27/18 Range/Units 07:09 RBC 3.77 L (4.30-5.90) m/uL Hgb 12.4 L (13.0-17.5) gm/dL Hct 36.9 L (39.0-53.0) % Lymphocytes # 0.9 L (1.0-4.8) k/uL Assessment and Plan Plan: -Right knee arthroplasty: Due to prophylaxis impairment as per primary service postoperative day one. -Coronary artery disease: Patient will be resumed on aspirin and statin tomorrow -Depression -Hypertension lisinopril will be resumed at 10 mg monitor blood pressure -Hyperlipidemia -Benign prostatic hypertrophy For above-mentioned chronic medical problems patient will be resumed and continued on appropriate home medications medication or consideration was done.
--- NOTE | 2018-06-27 12:44 | P.PN ---
Subjective Progress Note Date: 06/27/18 Principal diagnosis: Status post right total knee arthroplasty Patient is seen today resting his hospital bed, this was present at bedside. His pain is well-controlled. He denies any acute changes. He denies any headaches, lightheadedness, chest pain or shortness of breath. Objective - Vital Signs Vital signs: Vital Signs Temp 97.8 F 06/27/18 07:00 Pulse 72 06/27/18 07:00 Resp 16 06/27/18 07:00 BP 164/82 06/27/18 07:00 Pulse Ox 97 06/27/18 07:00 Intake & Output 06/26/18 06/27/18 06/27/18 18:59 06:59 18:59 Intake Total 1801 540 Output Total 400 75 Balance 1401 465 Weight 121.563 kg Intake: IV 1801 Oral 540 Output: Urine 300 75 Estimated Blood Loss 100 Other: Voiding Method Urinal # Voids 2 - Exam Right lower extremity: Incision is clean, dry, and intact. The prineo tape is in good condition. There is minimal soft tissue swelling and ecchymosis surrounding the medial and lateral aspects of the incision. Calf is soft, no tenderness with palpation. Plantar flexion, dorsiflexion, EHL, FHL are intact. Sensory exam to light touch throughout the extremity is intact, dorsal pedis pulses 2+. - Labs CBC & Chem 7: 06/27/18 07:09 Labs: Abnormal Lab Results - Last 24 Hours (Table) 06/27/18 Range/Units 07:09 RBC 3.77 L (4.30-5.90) m/uL Hgb 12.4 L (13.0-17.5) gm/dL Hct 36.9 L (39.0-53.0) % Lymphocytes # 0.9 L (1.0-4.8) k/uL Assessment and Plan Plan: Assessment: Postop day #1 status post right total knee arthroplasty, ORIF iatrogenic nondisplaced right lateral distal femoral condyle fracture Plan: Pain control, continue current oral medication GI and DVT prophylaxis, Eliquis 2.5mg bid for 2 weeks Wound care instructions were discussed Home physical therapy and nursing after discharge Prescription was placed for an IROM hinged knee brace, motion is from 0-90. Weight bearing restrictions at 50%, utilize walker at all times when ambulating Medical recommendations Discharge planning: Patient will likely be discharged home today after brace is fitted Time with Patient: Less than 30
--- NOTE | 2018-06-27 12:51 | P.DS ---
Providers Date of admission: 06/26/18 10:19 Expected date of discharge: 06/27/18 Attending physician: Jovanni Villanueva Consults: 06/26/18 15:16 Consult Physician Routine Consulting Provider: Emy Garza Consult Reason/Comments: Medical Management Do you want consulting provider notified?: Yes Primary care physician: Camelia Jenkins [facility] Course: Date of admission: 06/26/2018 Date of discharge: 06/27/2018 Admission diagnosis: Status post right total knee arthroplasty, ORIF iatrogenic nondisplaced right lateral distal femoral condyle fracture Discharge diagnosis: Same Attending physician: Dr. Villanueva Surgical procedures: Right total knee arthroplasty, ORIF iatrogenic nondisplaced right lateral distal femoral condyle fracture Brief history: Patient is a 63-year-old male with a history of progressive primary right knee osteoarthritis. At this point patient has failed conservative treatment measures and has opted to proceed with a elective right total knee arthroplasty Hospital course: Details of patient's surgery can be found in operative report. Patient tolerated the procedure well and was subsequently transported to orthopedic floor. Patient's orthopeidc and medical care was provided daily. Patient had daily laboratory tests performed for evaluation of overall blood counts. Patient had daily physical therapy to include strengthening range of motion as well as education with walker ambulation. Patient had daily CPM usage as part of their physical therapy program.] Patient was treated with Xarelto for their postoperative DVT prophylaxis during their inpatient stay. Patient was noted to have a relatively uneventful postoperative course. Patient reported satisfactory pain control with oral pain medications by postoperative day 0. Patient showed satisfactory progress with physical therapy. Patient moved steadily through the program and had no difficulty meeting the goals by postoperative day 1. Given patient's otherwise satisfactory course and having met physical therapy goals, plan is to discharge patient home on postoperative day 1. Discharge condition/disposition: Patient will be discharged home in stable condition. Discharge medications: Instructions are given on resumption of patient's normal daily medications per primary care recommendation, in addition patient will be prescribed [place] 10 mg/325 mg, tramadol 50 mg, Eliquis 2.5mg. Discharge instructions: 1. Wound care and infection precautions, keep incision dry and covered while showering, no lotions, creams, moisturizers. No soaking, tubs, pools, hottubs. Do not scrub over the incision. 2. Weight-bear as tolerated with walker / cane until follow-up. 3. Ice and elevate when necessary. Do not exceed 20 minutes per hour with ice pack. 4. Utilize compression sleeve until seen at first follow up appointment. 5. Visiting nursing care. 6. Home physical therapy including home CPM. 7. Pain meds and anticoagulants per prescription. 8. Pain medication has potential to cause constipation. Increase oral fluid and fiber intake. Contact primary care provider if you have not had a bowel movement within 48 hours after discharge 9. No anti-inflammatory medication until discussed at first post operative visit, this including Motrin, Aleve, Mobic, Diclofenac. 10. Follow up in office at 2 weeks postop with Sharif Gregorio PA-C 11. Follow up with your primary care doctor 7-10 days after discharge. 12. Contact [facility] with any questions, . Procedures: Right total knee arthroplasty, ORIF iatrogenic nondisplaced right lateral distal femoral condyle fracture Patient Condition at Discharge: Good Plan - Discharge Summary Discharge Rx Participant: Yes New Discharge Prescriptions: New Apixaban [Eliquis] 2.5 mg PO BID #30 tab Hydrocodone/Acetaminophen [[place] 10-325] 1 - 2 each PO Q6H PRN #56 tab PRN Reason: Pain traMADol HCl [Ultram] 50 mg PO Q6H PRN #28 tab PRN Reason: Pain No Action Nitroglycerin Sl Tabs [Nitrostat] 0.4 mg PO Q5M PRN PRN Reason: Chest Pain Cyclobenzaprine [Flexeril] 10 mg PO HS PRN PRN Reason: Pain Metoprolol Tartrate 25 mg PO BID Atorvastatin [Lipitor] 80 tab PO HS Spironolactone [Aldactone] 25 mg PO DAILY Sildenafil [Revatio] 20 mg PO TID PRN PRN Reason: E.D. Silodosin [Rapaflo] 8 mg PO DAILY Oxybutynin Chloride 5 mg PO BID DULoxetine HCL [Cymbalta] 30 mg PO TID Lisinopril [Zestril] 10 mg PO BID Discharge Medication List Nitroglycerin Sl Tabs [Nitrostat] 0.4 mg PO Q5M PRN 01/15/15 [History] Atorvastatin [Lipitor] 80 tab PO HS 01/16/15 [History] Metoprolol Tartrate 25 mg PO BID 01/16/15 [History] Spironolactone [Aldactone] 25 mg PO DAILY 01/16/15 [History] Sildenafil [Revatio] 20 mg PO TID PRN 05/02/17 [History] Oxybutynin Chloride 5 mg PO BID 06/19/18 [History] Silodosin [Rapaflo] 8 mg PO DAILY 06/19/18 [History] DULoxetine HCL [Cymbalta] 30 mg PO TID 06/26/18 [History] Lisinopril [Zestril] 10 mg PO BID 06/26/18 [History] Apixaban [Eliquis] 2.5 mg PO BID #30 tab 06/27/18 [Rx] Hydrocodone/Acetaminophen [[place] 10-325] 1 - 2 each PO Q6H PRN #56 tab 06/27/18 [Rx] traMADol HCl [Ultram] 50 mg PO Q6H PRN #28 tab 06/27/18 [Rx] Follow up Appointment(s)/Referral(s): [facility], [NON-STAFF] - Anton Gregorio PAC [PHYSICIAN HAZARDOUS MATERIAL SPECIALIST] - 2 Weeks Activity/Diet/Wound Care/Special Instructions: Walker and Hinged Knee Brace - [facility] - will deliver to bedside before discharge -[phone] Orthopedic Discharge Instructions: 1. Wound care and infection precautions, keep incision dry and covered while showering, no lotions, creams, moisturizers. No soaking, pools, hot tubs. Do not scrub over incision. 2. Weight-bear as tolerated with walker / cane until follow-up. 3. Ice and elevate when necessary. Do not exceed 20 minutes per hour with ice pack. 4. Utilize compression sleeve until seen at first follow up appointment. 5. Pain meds and anticoagulants per prescription. 6. Pain medication has potential to cause constipation. Increase oral fluid and fiber intake. Contact primary care provider if you have not had a bowel movement within 48 hours after discharge. 7. No anti-inflammatory medication until discussed at first post operative visit, this including Motrin, Aleve, Mobic, Diclofenac. 8. Follow up in office at 2 weeks postop with Sharif Gregorio PA-C 9. Follow up with your primary care doctor 7-10 days after discharge. 10. Contact [facility] with any questions, . Discharge Disposition: HOME WITH HOME HEALTH SERVICES
[2018-06-27 14:42] VITALS: BP 143/78; TEMP 98.1
[2018-06-27] MEDS ORDERED: DULoxetine HCL 30 MG CAPSULE.DR PO SCH (16:00)
[2018-06-27] MEDS ORDERED: METOPROLOL TARTRATE 25 MG TAB PO SCH (21:00)
[2018-06-27] MEDS ORDERED: CYCLOBENZAPRINE 10 MG TAB PO PRN (21:00)
[2018-06-27] MEDS ORDERED: ATORVASTATIN 80 MG TAB PO SCH (21:00)
[2018-06-28] MEDS ORDERED: LISINOPRIL 10 MG TAB PO SCH (09:00)
[2018-06-28] MEDS ORDERED: ASPIRIN 81 MG PO SCH (09:00)
--- NOTE | 2018-06-29 10:32 | CDI ---
Last Revision, July 2017 Documentation Clarification Form Date: 06/29/18 From: Freya Alfonso Phone: If you have question, contact Chelsea Shelton, at [phone] M-F 8:30 am to 6pm Admit Date: 06/26/2018 10:19:00 AM Patient Name: Steve Alexander Visit Number: [id number] Discharge Date: 06/27/18 ATTENTION: The Clinical Documentation Specialists (CDI) and [facility] Coding Staff appreciate your assistance in clarifying documentation. Please respond to the clarification below the line at the bottom and electronically sign. The CDI & [facility] Coding staff will review the response and follow-up if needed. Please note: Queries are made part of the Legal Health Record. If you have any questions, please contact the author of this message via ITS. Jovanni Apodaca MD Patient has been described as being 5 foot 8 inches tall, weighing 268 pounds with a BMI of 40.75. In order to capture the severity of condition associated with patient BMI of 40.75, a clinical diagnoses needs to be documented by the physician. Please clarify: Obese Morbidly obese Other, please specify ____ Unable to determine Morbid obesity MTDD
== END 2018-06-27 17:29 | disposition home health service (06) | DRG 470 ==
LOC: 2ORMAIN 10:19 → 4SSUR 15:45
PROVIDERS: ADMIT Orthopaedic Surgery; ATTEND Orthopaedic Surgery
PROC: 0QSB04Z Reposition Right Lower Femur with Internal Fixation Device, Open Approach (ICD-10-PCS; 2018-06-26)
PROC: 0SRC0J9 Replacement of Right Knee Joint with Synthetic Substitute, Cemented, Open Approach (ICD-10-PCS; principal; 2018-06-26 13:20)
DX: M17.11 Unilateral primary osteoarthritis, right knee (principal); S72.424A Nondisplaced fracture of lateral condyle of right femur, initial encounter for closed fracture; Z68.41 Body mass index [BMI] 40.0-44.9, adult; I10 Essential (primary) hypertension; I25.10 Atherosclerotic heart disease of native coronary artery without angina pectoris; M06.9 Rheumatoid arthritis, unspecified; F32.9 Major depressive disorder, single episode, unspecified; E66.01 Morbid (severe) obesity due to excess calories; N40.0 Benign prostatic hyperplasia without lower urinary tract symptoms; M79.7 Fibromyalgia; X58.XXXA Exposure to other specified factors, initial encounter; Y92.234 Operating room of hospital as the place of occurrence of the external cause; I25.2 Old myocardial infarction; Z95.5 Presence of coronary angioplasty implant and graft; Z79.82 Long term (current) use of aspirin; Z79.899 Other long term (current) drug therapy; Z88.2 Allergy status to sulfonamides; Z92.3 Personal history of irradiation; Z85.46 Personal history of malignant neoplasm of prostate
CPT/HCPCS: 85025; 88300

== ENCOUNTER → 2018-07-25 | Outpatient (CLI) | payer MEDICARE, BC ==
--- NOTE | 2018-07-25 11:15 | XR ---
EXAMINATION TYPE: XR knee limited RT DATE OF EXAM: 07/25/2018 CLINICAL HISTORY: pain TECHNIQUE: Two views of the right knee are obtained. COMPARISON: 06/26/2018 FINDINGS: Previously lateral supracondylar fracture is again noted. Stable total knee arthroplasty yaron fuller. Moderate suprapatellar joint effusion. IMPRESSION: Stable evaluation of the knee. Increasing joint effusion.
== END | disposition home or self-care (01) ==
LOC: RADXRMAIN 10:49
PROVIDERS: ATTEND Orthopaedic Surgery
DX: Z09 Encounter for follow-up examination after completed treatment for conditions other than malignant neoplasm (principal); M25.461 Effusion, right knee; Z96.651 Presence of right artificial knee joint

== ENCOUNTER → 2018-10-09 | Outpatient (CLI) | payer MEDICARE, BC | END | disposition home or self-care (01) | LOC: LABWHC1 11:10 | PROVIDERS: ATTEND Radiology Radiation Oncology | DX: C61 Malignant neoplasm of prostate (principal); Z92.3 Personal history of irradiation | CPT/HCPCS: 36415; 84153 ==

== ENCOUNTER → 2019-04-24 | Outpatient (CLI) | payer MEDICARE, BC | END | disposition home or self-care (01) | LOC: LABWHC1 12:21 | PROVIDERS: ATTEND Radiology Radiation Oncology | DX: C61 Malignant neoplasm of prostate (principal); Z92.3 Personal history of irradiation | CPT/HCPCS: 36415; 84153 ==

== ENCOUNTER → 2019-06-07 | Outpatient (CLI) | payer MEDICARE, BC ==
[2019-06-07 17:57] LABS: Appearance,Urine Clear (Clear); Bilirubin,Urine Negative (Negative); Blood,Urine Negative (Negative); Color,Urine Yellow; Glucose,Urine (UA) Negative (Negative); Ketones,Urine Negative (Negative); Leukocyte Esterase,Urine Negative (Negative); Nitrite,Urine Negative (Negative); PH, Urine 5.5 (5.0-8.0); Protein,Urine Negative (Negative); Specific Gravity,Urine 1.018 (1.001-1.035); Urobilinogen,Urine <2.0 mg/dL (<2.0)
== END ==
LOC: LABWHC1 14:54
PROVIDERS: ATTEND Radiology Radiation Oncology
DX: C61 Malignant neoplasm of prostate (principal); Z92.3 Personal history of irradiation; Z85.46 Personal history of malignant neoplasm of prostate
CPT/HCPCS: 81003

== ENCOUNTER 2019-07-05 08:59 | Observation (INO) | payer MEDICARE, BC ==
[2019-07-05] MEDS ORDERED: SODIUM CHLORIDE 0.9% 1,000 ML IV STA (09:10)
[2019-07-05] MEDS ORDERED: ASPIRIN 81 MG PO STA (09:10)
--- NOTE | 2019-07-05 09:25 | ED ---
Chest Pain HPI - General Chief Complaint: Chest Pain Stated Complaint: chest pain Time Seen by Provider: 07/05/19 09:09 Source: patient, RN notes reviewed, old records reviewed Mode of arrival: ambulatory Limitations: no limitations - History of Present Illness Initial Comments: Patient is a 64-year-old male presents emergency department today with onset of chest pain, nausea, and pain radiating towards his back starting at 4:30 this morning. She reports the pain seems to be between his shoulder blades, worse on the right side. Patient reports that he took 2 nitro at 4:30 and on 7:30 did have some relief of his pain. He has had a heart attack in the past and has a stent in his LAD. He reports that his last heart attack was in 2012. Patient reports that this feels similar to his last heart attack. Patient states that he has had none of his medications this morning including his blood pressure medications. He did not take an aspirin at this time. Patient states that he's had no fevers or chills cough. He complained of some shortness of breath on exertion. Patient has a history of hyper-tension, nonsmoker. - Related Data Home Medications Medication Instructions Recorded Confirmed Nitroglycerin Sl Tabs [Nitrostat] 0.4 mg PO Q5M PRN 01/15/15 07/05/19 Metoprolol Tartrate 25 mg PO BID 01/16/15 07/05/19 Spironolactone [Aldactone] 25 mg PO DAILY 01/16/15 07/05/19 Sildenafil [Revatio] 40 mg PO DAILY PRN 05/02/17 07/05/19 Oxybutynin Chloride 5 mg PO BID 06/19/18 07/05/19 DULoxetine HCL [Cymbalta] 30 mg PO TID 06/26/18 07/05/19 Cyclobenzaprine [Flexeril] 10 mg PO TID PRN 07/05/19 07/05/19 Hydrocodone/Acetaminophen [Wren 1 tab PO QID PRN 07/05/19 07/05/19 10-325] Lisinopril 20 mg PO DAILY 07/05/19 07/05/19 Montelukast [Singulair] 10 mg PO HS 07/05/19 07/05/19 Tamsulosin HCl [Flomax] 0.4 mg PO BID 07/05/19 07/05/19 Allergies Allergy/AdvReac Type Severity Reaction Status Date / Time Sulfa (Sulfonamide Allergy Rash/Hives Verified 07/05/19 10:56 Antibiotics) Review of Systems ROS Statement: Those systems with pertinent positive or pertinent negative responses have been documented in the HPI. ROS Other: All systems not noted in ROS Statement are negative. EKG Findings - EKG Comments: EKG Findings:: EKG performed at 918 shows sinus rhythm, normal EKG. Ventricular rate of 61 bpm. Verbal is 182 ms. QRS duration is 90 ms. QT QTc is 400/402 ms. Past Medical History Past Medical History: Cancer, Hypertension, Myocardial Infarction (IN), Muscul oskeletal Disorder, Osteoarthritis (OA), Prostate Disorder, Rheumatoid Arthritis (RA) Additional Past Medical History / Comment(s): HX PROSTATE CA - RADIATION 2015. DJD. Last Myocardial Infarction Date:: 2012 LAD History of Any Multi-Drug Resistant Organisms: None Reported Past Surgical History: Heart Catheterization With Stent, Orthopedic Surgery Additional Past Surgical History / Comment(s): LEFT KNEE ARTHROSCOPY. LT CTR. FLUID DRAINED OFF between LUNG space. Past Anesthesia/Blood Transfusion Reactions: No Reported Reaction Additional Past Anesthesia/Blood Transfusion Reaction / Comment(s): no hx blood transfusion Date of Last Stent Placement:: 2012 Past Psychological History: No Psychological Hx Reported Smoking Status: Never smoker Past Alcohol Use History: Occasional Past Drug Use History: Marijuana - Past Family History Father Family Medical History: Cancer General Exam - General Exam Comments Initial Comments: Patient is a 64-year-old male presents today for concern for chest pain. Patient is a moderate discomfort. Limitations: no limitations General appearance: alert, in no apparent distress Head exam: Present: atraumatic, normocephalic, normal inspection Eye exam: Present: normal appearance, PERRL, EOMI. Absent: scleral icterus, conjunctival injection, periorbital swelling ENT exam: Present: normal exam, normal oropharynx, mucous membranes moist Neck exam: Present: normal inspection Respiratory exam: Present: normal lung sounds bilaterally. Absent: respiratory distress, wheezes, rales, rhonchi, stridor Cardiovascular Exam: Present: regular rate, normal rhythm, normal heart sounds. Absent: systolic murmur, diastolic murmur, rubs, gallop, clicks GI/Abdominal exam: Present: soft, normal bowel sounds. Absent: distended, tenderness, guarding, rebound, rigid Extremities exam: Present: normal inspection, full ROM, normal capillary refill. Absent: tenderness, pedal edema, joint swelling, calf tenderness Back exam: Present: normal inspection Neurological exam: Present: alert, oriented X3, CN II-XII intact Psychiatric exam: Present: normal affect, normal mood Skin exam: Present: warm, dry, intact, normal color. Absent: rash Course Vital Signs 07/05/19 07/05/19 07/05/19 09:05 09:47 11:00 Temperature 97.9 F Pulse Rate 62 64 88 Respiratory 18 16 18 Rate Blood Pressure 175/92 107/66 131/80 O2 Sat by Pulse 97 96 95 Oximetry Chest Pain MDM - MDM Patient is a 64-year-old male presents today for evaluation for concern for chest pain, with radiation towards his back. Sensory reports that in the morning he did take 2 nitro once at 4:30 once at 7:30 when he had recurrent pain. This Patient EKG shows no acute changes. Initial troponin test is negative. Blood work was otherwise reviewed and unremarkable. Due to the concern for radiation for this back we did complete a CT thoracic aorta. This is negative for dissection. Patient was informed of his results. He rested comfortably that on reevaluation after first dose of pain meds and some fluids. I discussed with the concern for other previous heart attack and history, we would admit the Patient for with heparin and close cardiac monitoring. Patient is agreeable to this treatment plan. Disposition Clinical Impression: Unstable angina Disposition: ADMITTED IP TO THIS [facility] Condition: Good Instructions (If sedation given, give patient instructions): Chest Pain (ED) Is patient prescribed a controlled substance at d/c from ED?: No Referrals: Gregory Denise MD [Primary Care Provider] - 1-2 days Time of Disposition: 11:36
[2019-07-05] MEDS: NITROGLYCERIN SL TABS 0.4 MG TAB SUBLINGUAL STA ×2 (09:35→09:48)
[2019-07-05 09:55] LABS: ALT 28 U/L (21-72); AST 24 U/L (17-59); African American GFR (CKD) >90 (>60 ml/min/1.73 sqM); Albumin 4.2 g/dL (3.5-5.0); Alkaline Phosphatase 46 U/L (38-126); Amylase 39 U/L (30-110); Anion Gap 8 mmol/L; Basophils % (A) 1 %; Blood Urea Nitrogen 15 mg/dL (9-20); Calcium 9.2 mg/dL (8.4-10.2); Carbon Dioxide 26 mmol/L (22-30); Chloride 105 mmol/L (98-107); Eosinophils # (A) 0.2 k/uL (0-0.7); Eosinophils % (A) 3 %; Glucose 121 mg/dL (74-99); HCT 43.1 % (39.0-53.0); HGB 14.9 gm/dL (13.0-17.5); Lymphocytes % (A) 19 %; MCH 32.9 pg (25.0-35.0); MCHC 34.6 g/dL (31.0-37.0); Mean Platelet Volume 5.6; Monocytes # (A) 0.4 k/uL (0-1.0); Monocytes % (A) 7 %; Neutrophils # (A) 3.7 k/uL (1.3-7.7); Neutrophils % (A) 67 %; Non-African American GFR(CKD) 88 (>60 ml/min/1.73 sqM); Platelet Count 246 k/uL (150-450); Potassium 4.5 mmol/L (3.5-5.1); RBC 4.53 m/uL (4.30-5.90); RDW 12.6 % (11.5-15.5); Sodium 139 mmol/L (137-145); Total Bilirubin 0.7 mg/dL (0.2-1.3); Total Protein 7.2 g/dL (6.3-8.2); WBC 5.5 k/uL (3.8-10.6)
[2019-07-05 10:01] LABS: INR 0.9 (<1.2); Partial Thromboplastin Time 24.8 sec (22.0-30.0); Prothrombin Time 10.1 sec (9.0-12.0)
--- NOTE | 2019-07-05 10:05 | XR ---
EXAMINATION TYPE: XR chest 2V DATE OF EXAM: 07/05/2019 COMPARISON: 01/14/2015 HISTORY: Shortness of breath TECHNIQUE: Frontal and lateral views of the chest are obtained. FINDINGS: Scattered senescent parenchymal changes noted. Hyperinflation compatible with COPD. Chronic appearing patchy density right lower lobe with nodular component at the right costophrenic an gle. No new areas of infiltrate appreciated at this time. Heart size is stable. Mediastinal structures are stable and grossly unremarkable. No evidence for hilar prominence. Degenerative changes dorsal spine. IMPRESSION: 1. Chronic appearing patchy density right lower lobe with nodular component at the right costophrenic angle. No new areas of infiltrate appreciated at this time.
[2019-07-05 11:05] VITALS: RESP 18
--- NOTE | 2019-07-05 11:19 | CT ---
EXAMINATION TYPE: CT angio thor/abd pel aorta DATE OF EXAM: 07/05/2019 COMPARISON: None HISTORY: Upper back and chest pain with shortness of breath. CT DLP: 2385.4 mGycm CONTRAST: CTA thoracic and abdominal aorta with 3-D reconstruction is performed and with IV Contrast, patient i njected with 100 mL of Isovue 370. Contrast CTA of the thoracic and abdominal aorta was performed from the lung apex through the base of the pelvis. 3-D reconstruction imaging obtained at a separate workstation. CT Chest: THORACIC AORTA: There is no evidence for aneurysm. No dissection or mediastinal hematoma. Mild ath eromatous changes are seen. 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 The lungs are ki r and free of infiltrate or atelectasis. No pulmonary nodule or mass is detected. No pleural effusi on or CT evidence of interstitial lung disease. MEDIASTINUM: The heart is not enlarged. No evidence for mediastinal mass or adenopathy. HILAR STRUCTURES: No evidence for mass. No hilar adenopathy is appreciated. OTHER: No significant abnormality. CONTRAST CT ABDOMEN AND PELVIS ABDOMENAL AORTA: No evidence for abdominal aortic aneurysm. No dissection. Iliac vessels are symmet arthur and patent. LIVER/GB- No significant abnormality is seen. PANCREAS- No significant abnormality is seen. SPLEEN- No significant abnormality is seen. ADRENALS- No significant abnormality is seen. KIDNEYS/BLADDER- No significant abnormality is seen. BOWEL- No Significant abnormality GENITAL ORGANS: No gross abnormality seen. LYMPH NODES- No greater than 1cm abdominal or pelvic lymph nodes are appreciated. OSSEOUS STRUCTURES-severe degenerative change throughout the lumbar spine. Grade 2 anterolisthesis L5 on S1. OTHER- No significant abnormality is seen. IMPRESSION- 1. No evidence for aneurysm or dissection of the aorta.
[2019-07-05] MEDS ORDERED: NITROGLYCERIN SL TABS 0.4 MG TAB SUBLINGUAL PRN (11:37)
[2019-07-05] MEDS ORDERED: HEPARIN SODIUM,PORCINE 5,000 UNIT/ML 1 ML VIAL IV ONE (11:37)
[2019-07-05] MEDS ORDERED: HEPARIN SOD,PORK IN 0.45% NACL 25,000 UNIT in 0.45% NACL 1 250ML.BAG IV SCH (11:45)
[2019-07-05] MEDS ORDERED: INFLUENZA VACCINE (6 MOS+) 60 MCG/0.5 ML SYRINGE IM ONE (12:26)
[2019-07-05] MEDS ORDERED: PNEUMOCOCCAL VACC-PNEUMOVAX 23 25 MCG/0.5 ML VIAL IM ONE (12:26)
--- NOTE | 2019-07-05 12:49 | P.CRDCN ---
History of Present Illness History of present illness: HISTORY OF PRESENTING ILLNESS This is a pleasant 64-year-old male past medical history significant for coronary artery disease in the setting of an acute myocardial infarction status post PCI to the LAD, hypertension and arthritis. He presented with chest pain, nausea and shortness of breath. He follows in the office with Dr. De Leon. We have been asked to see him in consultation for chest pain. He states he woke up at 0430 with an overall sick feeling. He states he was nauseated and his stomach felt quesy along with a discomfort in the right scapular region with intermittent radiation to the right anterior chest wall. He also felt like he couldn't take in a deep breath. He denies palpitations, dizziness, vomiting or diaphoresis. He took 3 SL nitro with no relief. The symptoms persisted and around 0730 he took another 3 nitro with no relief. He then decided to come to the hospital. He was given 1 SL nitro and the discomfort improved. He continues to have a mild pain in the right scapular region that is mildly reproducible on exam. His nausea has improved, in fact he is eating a donut. He states his symptoms feel similar to his NE from 2012. Most recently in 2014 he underwent a heart catheterization revealing patent stent in the LAD with mild intimal disease of the RCA and distal left main with mild mid anterior wall motion hypokinesia. DIAGNOSTICS EKG reveals sinus mechanism x2. Chest xray negative for an acute process with chronic patchy density right lower lobe. Laboratory reviewed, CBC unremarkable, sodium 139, potassium 4.5, creatinine 0.93, magnesium 2.0, troponin negative 1, proBNP 109. Current cardiac medications include lisinopril 20 mg daily, Aldactone 25 mg daily, metoprolol 25 mg twice a day. REVIEW OF SYSTEMS At the time of my exam: CONSTITUTIONAL: Denies fever or chills. CARDIOVASCULAR: Denies chest pain, shortness of breath, orthopnea, PND or palpitations. RESPIRATORY: Denies cough. GASTROINTESTINAL: Denies abdominal pain, diarrhea, constipation, nausea or vomiting. MUSCULOSKELETAL: Complains of reproducible right scapular pain. NEUROLOGIC: Denies numbness, tingling or weakness. ENDOCRINE: Denies fatigue, weight change, polydipsia or polyurina. GENITOURINARY: Denies burning, hematuria or urgency with micturation. HEMATOLOGIC: Denies history of anemia or bleeding. PHYSICAL EXAMINATION Blood pressure 136/75 heart rate 74 afebrile and maintaining oxygen saturaiton on room air. CONSTITUTIONAL: No apparent distress. Obese. HEENT: Head is normocephalic. Pupils are equal, round. Sclerae anicteric. Mucous membranes of the mouth are moist. No JVD. No carotid bruit. CHEST EXAMINATION: Lungs are clear to auscultation. No chest wall tenderness is noted on palpation or with deep breathing. HEART EXAMINATION: Regular rate and rhythm. S1, S2 heard. No murmurs, gallops or rub. ABDOMEN: Soft, mild epigastric tenderness on palpation. Positive bowel sounds. EXTREMITIES: 2+ peripheral pulses, no lower extremity edema and no calf tenderness. NEUROLOGIC EXAMINATION: Patient is awake, alert and oriented x3. ASSESSMENT Chest pain with associated nausea, similar to previous NE. No EKG changes. History of coronary artery disease s/p PCI LAD History of myocardial infarction 2012 Hypertension Arthritis PLAN Continue to obtain serial cardiac enzymes to rule out an acute event. Continue heparin infusion. Resume aldactone, lopressor and lisinopril as previously ordered. Decrease aspirin to 81 mg daily. Check ultrasound of the gallbladder. Obtain 2D echocardiogram and doppler study to assess cardiac structure and function. Further recommendations to follow based on clinical course. Thank you kindly for this consultation. Nurse Practitioner note has been reviewed, I agree with a documented findings and plan of care. Patient was seen and examined. Past Medical History Past Medical History: Coronary Artery Disease (CAD), Cancer, Chest Pain / Angina, Fibromyalgia, Hypertension, Myocardial Infarction (NE), Musculoskeletal Disorder, Osteoarthritis (OA), Prostate Disorder, Rheumatoid Arthritis (RA) Additional Past Medical History / Comment(s): Prostate cancer with radiation in 2015, BPH, arthritis in multiple joints, chronic low back pain with bilateral sciatica, pt states he put his back out earlier this week, bronchitis, pneumotho rax with chest tube in 2001 after a fall, hemorrhoids years ago. Last Myocardial Infarction Date:: 2012 History of Any Multi-Drug Resistant Organisms: None Reported Past Surgical History: Heart Catheterization, Heart Catheterization With Stent, Joint Replacement, Orthopedic Surgery Additional Past Surgical History / Comment(s): 2014 cardiac cath, 2012 PCI with stents to LAD, L knee arthroscopy, total R knee, L shoulder arthroscopy, L carpal tunnel release, colonoscopy. Past Anesthesia/Blood Transfusion Reactions: No Reported Reaction Additional Past Anesthesia/Blood Transfusion Reaction / Comment(s): no hx blood transfusion Date of Last Stent Placement:: 2012 Smoking Status: Never smoker - Past Family History Father Family Medical History: Cancer Additional Family Medical History / Comment(s): kidney/bone cancer- of at the age of 59yrs. Mother Family Medical History: Musculoskeletal Disorder, Neurologic Disorder Additional Family Medical History / Comment(s): Mother of Ghada Braeden's disease Medications and Allergies Home Medications Medication Instructions Recorded Confirmed Type Nitroglycerin Sl Tabs [Nitrostat] 0.4 mg PO Q5M PRN 01/15/15 07/05/19 History Metoprolol Tartrate 25 mg PO BID 01/16/15 07/05/19 History Spironolactone [Aldactone] 25 mg PO DAILY 01/16/15 07/05/19 History Sildenafil [Revatio] 40 mg PO DAILY PRN 05/02/17 07/05/19 History Oxybutynin Chloride 5 mg PO BID 06/19/18 07/05/19 History DULoxetine HCL [Cymbalta] 30 mg PO TID 06/26/18 07/05/19 History Cyclobenzaprine [Flexeril] 10 mg PO TID PRN 07/05/19 07/05/19 History Hydrocodone/Acetaminophen [[place] 1 tab PO QID PRN 07/05/19 07/05/19 History 10-325] Lisinopril 20 mg PO DAILY 07/05/19 07/05/19 History Montelukast [Singulair] 10 mg PO HS 07/05/19 07/05/19 History Tamsulosin HCl [Flomax] 0.4 mg PO BID 07/05/19 07/05/19 History Allergies Allergy/AdvReac Type Severity Reaction Status Date / Time Sulfa (Sulfonamide Allergy Rash/Hives Verified 07/05/19 10:56 Antibiotics) Physical Exam Vitals: Vital Signs Temp Pulse Resp BP Pulse Ox 07/05/19 12:07 98 F 74 18 136/75 96 07/05/19 11:00 88 18 131/80 95 07/05/19 09:47 64 16 107/66 96 07/05/19 09:05 97.9 F 62 18 175/92 97 Intake and Output 07/04/19 07/05/19 07/05/19 22:59 06:59 14:59 Other: Weight 117.934 kg Results 07/05/19 09:29 07/05/19 09:29 Cardiac Enzymes 07/05/19 07/05/19 Range/Units 09:29 09:29 AST 24 (17-59) U/L Troponin I <0.012 (0.000-0.034) ng/mL Coagulation 07/05/19 Range/Units 09:29 PT 10.1 (9.0-12.0) sec APTT 24.8 (22.0-30.0) sec CBC 07/05/19 Range/Units 09:29 WBC 5.5 (3.8-10.6) k/uL RBC 4.53 (4.30-5.90) m/uL Hgb 14.9 (13.0-17.5) gm/dL Hct 43.1 (39.0-53.0) % Plt Count 246 (150-450) k/uL Comprehensive Metabolic Panel 07/05/19 Range/Units 09:29 Sodium 139 (137-145) mmol/L Potassium 4.5 (3.5-5.1) mmol/L Chloride 105 (98-107) mmol/L Carbon Dioxide 26 (22-30) mmol/L BUN 15 (9-20) mg/dL Creatinine 0.93 (0.66-1.25) mg/dL Glucose 121 H (74-99) mg/dL Calcium 9.2 (8.4-10.2) mg/dL AST 24 (17-59) U/L ALT 28 (21-72) U/L Alkaline Phosphatase 46 (38-126) U/L Total Protein 7.2 (6.3-8.2) g/dL Albumin 4.2 (3.5-5.0) g/dL Current Medications Generic Name Dose Route Start Last Admin Trade Name Freq PRN Reason Stop Dose Admin Aspirin 81 mg 07/06/19 09:00 Aspirin PO DAILY RANJANA Sodium Chloride 1,000 mls @ 100 mls/hr 07/05/19 09:10 07/05/19 09:35 Saline 0.9% IV 07/05/19 19:09 100 mls/hr .Q10H STA Administration Heparin Sodium/Sodium Chloride 250 mls @ 10.001 mls/hr 07/05/19 11:45 07/05/19 12:15 25,000 unit/ Sodium Chloride IV 8.48 units/kg/hr .Q24H RANJANA 10.001 mls/hr Administration Protocol 8.48 UNITS/KG/HR Lisinopril 20 mg 07/05/19 12:30 Zestril PO DAILY RANJANA Metoprolol Tartrate 25 mg 07/05/19 12:30 Lopressor PO BID RANJANA Nitroglycerin 0.4 mg 07/05/19 11:37 Nitrostat SUBLINGUAL Q5M PRN Chest Pain Spironolactone 25 mg 07/05/19 12:30 Aldactone PO DAILY RANJANA Intake and Output 07/04/19 07/05/19 07/05/19 22:59 06:59 14:59 Other: Weight 117.934 kg Patient Weight 07/06/19 06:59 Weight 117.934 kg 07/05/19 09:29 07/05/19 09:29
[2019-07-05] MEDS: LISINOPRIL 20 MG TAB PO SCH (13:18)
[2019-07-05] MEDS: METOPROLOL TARTRATE 25 MG TAB PO SCH ×2 (13:18→20:10)
[2019-07-05] MEDS: SPIRONOLACTONE 25 MG TAB PO SCH (13:18)
[2019-07-05] MEDS ORDERED: CYCLOBENZAPRINE 10 MG TAB PO PRN (15:54)
[2019-07-05] MEDS ORDERED: SILDENAFIL 20 MG TAB PO PRN (15:54)
--- NOTE | 2019-07-05 16:01 | US ---
EXAMINATION TYPE: US gallbladder DATE OF EXAM: 07/05/2019 COMPARISON: CT 07/05/2019 CLINICAL HISTORY: pain, nausea. Midline chest and right shoulder pain; history of NV and coronary art thai stent EXAM MEASUREMENTS: Liver Length: 19.0 cm Gallbladder Wall: 0.2 cm CBD: 0.4 cm Right Kidney: 10.9 x 5.9 x 5.3 cm Pancreas: hyperechoic Liver: hyperechoic and enlarged suggests fatty liver, with probable focal sparing noted near gallbla dder. This is a typical location for focal fatty sparing. Fatty infiltration limits evaluation for he patic masses. Gallbladder: wnl Evidence for sonographic Clark's sign: no CBD: wnl Right Kidney: No hydronephrosis or masses seen IMPRESSION: 1. No sonographic evidence of cholelithiasis nor acute cholecystitis. 2. Sonographic findings most commonly related to hepatic steatosis. Correlate with liver function terri ts.
[2019-07-05] MEDS: HYDROcodone/APAP 10-325MG 1 EACH TAB PO PRN ×2 (16:09→21:37)
[2019-07-05] MEDS: DULoxetine HCL 30 MG CAPSULE.DR PO SCH ×2 (16:53→20:10)
[2019-07-05] MEDS ORDERED: HEPARIN SODIUM,PORCINE 5,000 UNIT/ML 1 ML VIAL IV PRN (19:32)
[2019-07-05] MEDS: TAMSULOSIN 0.4 MG CAP.ER.24H PO SCH (20:09)
[2019-07-05] MEDS: OXYBUTYNIN CHLORIDE 5 MG TAB PO SCH (20:10)
[2019-07-05] MEDS ORDERED: ATORVASTATIN 80 MG TAB PO SCH (21:00)
[2019-07-05] MEDS ORDERED: MONTELUKAST 10 MG TAB PO SCH (21:00)
[2019-07-06] MEDS: HYDROcodone/APAP 10-325MG 1 EACH TAB PO PRN (03:30)
[2019-07-06 04:15] LABS: Cholesterol 136 mg/dL (<200); HDL Cholesterol 57 mg/dL (40-60); LDL Cholesterol,Calculated 69 mg/dL (0-99); Triglycerides 52 mg/dL (<150)
--- NOTE | 2019-07-06 08:13 | P.PN ---
Subjective Progress Note Date: 07/06/19 Principal diagnosis: Chest pain This is a 64-year-old gentleman with history of ischemic heart disease with a previous stent placement of the left anterior descending coronary artery, who presented to the hospital with chest pain that woke him up at night. The pain was on the right side of the chest and scapular area with some radiation to the front of the chest. Associated with some nausea and also shortness of breath. His EKGs and cardiac enzymes have been negative. Computed tomography scan did not reveal any dissecting aneurysm. Patient is currently stable. Echoca rdiogram report is pending. We discussed the option of doing a stress test versus cardiac catheterization. Patient preferred to go home and have a stress test. I'm going to get a d-dimer value. If that is normal and requires a normal and and if patient remains stable without any recurrence of chest pain with activity, patient will be discharged home. He'll have outpatient stress test and follow-up with Dr. De Leon. Objective - Vital Signs Vital signs: Vital Signs Temp 98.1 F 07/06/19 04:00 Pulse 56 L 07/06/19 04:00 Resp 18 07/06/19 04:00 BP 119/65 07/06/19 04:00 Pulse Ox 98 07/06/19 04:00 Intake & Output 07/05/19 07/06/19 07/06/19 18:59 06:59 18:59 Intake Total 240 305.896 Balance 240 305.896 Weight 117.934 kg Intake: Intake, IV Titration 285.896 Amount Heparin Sod,Pork in 0.45% 185.896 NaCl 25,000 unit In 0.45 % NaCl 1 250ml.bag @ 8.48 UNITS/KG/HR 10.001 mls/ hr IV .Q24H RANJANA Rx#: [id number] Sodium Chloride 0.9% 1, 100 000 ml @ 100 mls/hr IV . Q10H STA Rx#:[id number] Oral 240 20 Other: Voiding Method Toilet Toilet - Exam GENERAL EXAM: Patient is alert and oriented and doesn't appear to be in any acute distress HEENT: Normocephalic. Normal reaction of pupils, equal size, normal range of extraocular motion. No erythema or exudates in the throat. NECK: No masses, no nuchal rigidity. CHEST: No chest wall deformity. LUNGS: Equal air entry with no crackles or wheeze. HEART: S1 and S2 normal with no audible mumurs or gallops. Regular rhythm, femorals equal on both sides.. ABDOMEN: No hepatosplenomegaly, normal bowel sounds, no guarding or rigidity. SKIN: No rashes CENTRAL NERVOUS SYSTEM: No focal deficits. EXTREMITIES: No cyanosis, clubbing or edema. - Labs CBC & Chem 7: 07/05/19 09:29 07/05/19 09:29 Labs: Abnormal Lab Results - Last 24 Hours (Table) 07/05/19 07/06/19 Range/Units 09:29 02:57 APTT 40.8 H (22.0-30.0) sec Glucose 121 H (74-99) mg/dL Assessment and Plan (1) Right-sided chest pain Current Visit: Yes Status: Acute Code(s): R07.9 - CHEST PAIN, UNSPECIFIED SNOMED Code(s): 424916509 (2) History of coronary artery disease Current Visit: Yes Status: Acute Code(s): Z86.79 - PERSONAL HISTORY OF OTHER DISEASES OF THE CIRCULATORY SYSTEM SNOMED Code(s): 362283525 Plan: Review of echocardiogram. Get d-dimer value. Increase activity. If the above test are normal and if patient doesn't have any recurrence of chest pain, patient could be discharged home. Outpatient stress test and follow up
[2019-07-06] MEDS: OXYBUTYNIN CHLORIDE 5 MG TAB PO SCH (08:41)
[2019-07-06] MEDS: LISINOPRIL 20 MG TAB PO SCH (08:42)
[2019-07-06] MEDS: SPIRONOLACTONE 25 MG TAB PO SCH (08:42)
[2019-07-06] MEDS: DULoxetine HCL 30 MG CAPSULE.DR PO SCH (08:42)
[2019-07-06] MEDS: TAMSULOSIN 0.4 MG CAP.ER.24H PO SCH (08:42)
[2019-07-06] MEDS ORDERED: ASPIRIN 81 MG PO SCH (09:00)
[2019-07-06] MEDS ORDERED: ASPIRIN 325 MG TAB PO SCH (09:00)
[2019-07-06 09:42] LABS: D-Dimer 0.65 mg/L FEU (<0.60); Partial Thromboplastin Time 47.5 sec (22.0-30.0)
--- NOTE | 2019-07-06 10:02 | ECHOF ---
Referral Reason:cp MEASUREMENTS -------- HEIGHT: 180.3 cm WEIGHT: 117.9 kg BP: 188/81 IVSd: 1.0 cm (0.6 - 1.1) LVIDd: 4.6 cm (3.9 - 5.3) LVPWd: 1.4 cm (0.6 - 1.1) EDV(Teich): 100 ml IVSs: 1.6 cm LVIDs: 1.7 cm LVPWs: 1.6 cm %IVS Thck: 56 % ESV(Teich): 8 ml EF(Teich): 92 % %FS: 64 % SV(Teich): 92 ml RVIDd: 3.0 cm (< 3.3) Ao Diam: 3.1 cm (2.0 - 3.7) LA Diam: 3.8 cm (2.7 - 3.8) AV Cusp: 2.2 cm (1.5 - 2.6) EPSS: 2.0 cm MV E Jimbo: 0.81 m/s MV DecT: 199 ms MV Dec [place]: 4.1 m/s MV A Jimbo: 0.76 m/s MV E/A Ratio: 1.07 MV PHT: 58 ms MR Vmax: 1.32 m/s MR maxP.95 mmHg AV Vmax: 1.60 m/s AV maxP.25 mmHg TR Vmax: 1.60 m/s TR maxP.28 mmHg RAP: 5.00 mmHg RVSP: 15.28 mmHg MV EF SLOPE: 111.63 mm/s (70 - 150) MV EXCURSION: 20.13 mm (> 18.000) FINDINGS -------- Sinus rhythm. This was a technically difficult study with suboptimal views. The left ventricular size is normal. There is mild concentric left ventricular hypertrophy. Overa ll left ventricular systolic function is normal with, an EF between 55 - 60 %. The right ventricle is normal in size. The left atrial size is normal. The right atrial size is normal. Lumason used Aortic valve is trileaflet and is mildly thickened. The mitral valve is normal. The mitral valve leaflets are mildly thickened. There is trace mitral regurgitation. The tricuspid valve appears structurally normal. Trace tricuspid regurgitation present. Right jennifer tricular systolic pressure is normal at < 35 mmHg. There is no pulmonic regurgitation present. The aortic root size is normal. IVC Not well visulized. There is no pericardial effusion. CONCLUSIONS -------- 1. Sinus rhythm. 2. This was a technically difficult study with suboptimal views. 3. The left ventricular size is normal. 4. There is mild concentric left ventricular hypertrophy. 5. Overall left ventricular systolic function is normal with, an EF between 55 - 60 %. 6. The right ventricle is normal in size. 7. The left atrial size is normal. 8. The right atrial size is normal. 9. Lumason used 10. Aortic valve is trileaflet and is mildly thickened. 11. The mitral valve is normal. 12. The mitral valve leaflets are mildly thickened. 13. There is trace mitral regurgitation. 14. The tricuspid valve appears structurally normal. 15. Trace tricuspid regurgitation present. 16. Right ventricular systolic pressure is normal at < 35 mmHg. 17. There is no pulmonic regurgitation present. 18. The aortic root size is normal. 19. IVC Not well visulized. 20. There is no pericardial effusion. BEAM DYER: Chika Barone RDCS
--- NOTE | 2019-07-06 10:39 | CT ---
EXAMINATION TYPE: CT chest angio for PE DATE OF EXAM: 07/06/2019 COMPARISON: None. HISTORY: Elevated d dimer, chest pain CT DLP: 941.8 mGycm Automated exposure control for dose reduction was used. CONTRAST: CT Chest for pulmonary embolism performed with with IV Contrast, patient injected with 100 mL of Isov ue 370. FINDINGS: There is atelectatic change present in the lung bases. There is no significant axillary, me diastinal or hilar adenopathy. There is no evidence of pulmonary embolus. The aorta is normal in caliber without evidence of dissection. IMPRESSION: THIS EXAMINATION IS NEGATIVE FOR PULMONARY EMBOLUS.
--- NOTE | 2019-07-06 10:58 | P.HPIM ---
History of Present Illness H&P Date: 07/05/19 Chief Complaint: Chest pain Patient is a 64-year-old male with a known history of coronary artery disease, [place] 6 years back status post stent placement, hypertension, prostate cancer with radiation in 2016, BPH, osteoarthritis and chronic low back pain and sciatica as well as rheumatoid arthritis came to ER with the complaints of chest pain started below the right shoulder blade and radiated below the right breast margin. Sharp pain. Associated with shortness of breath. Denied any nausea vomiting or abdominal pain. No diaphoresis. No headache or dizziness or lighth eadedness. Patient says that he took 2 nitro tablets at home without much relief. Patient says that his symptoms are similar to previous [place]. Came to ER for further evaluation. No cough or sputum production. Denied any fever or chills. Patient has been taking his medications regularly. EKG showed normal sinus rhythm. Troponin 1 negative. Chest x-ray showed chronic appearing patchy density right lower lobe with nodular component at the right costophrenic angle. No new areas of infiltrate appreciated this time. CT thorax showed no evidence of aneurysm or dissection of the aorta. Ultrasound abdomen showed no sonographic evidence of cholelithiasis R acute cholecystitis. Sonographic findings most commonly related to hepatic steatosis. Correlate with liver function tests. BNP not elevated. Liver function tests within normal limits. Review of Systems Constitutional: Patient denies any fever or chills . No generalized weakness or weight loss. Abdomen: Patient denied nausea vomiting and diarrhea and abdominal pain. Cardiovascular: Patient denies any chest pain or short of breath no palpitations. Respiratory: patient denied any cough is from production. No shortness of breath Neurologic: Patient denied any numbness or tingling headache. Musculoskeletal: Patient denies any complaints of joint swelling or deformity. Skin: Negative Psychiatric: Negative Endocrine: No heat or cold intolerance. No recent weight gain. Genitourinary: No dysuria or hematuria. All other 14 point ROS negative except the above Past Medical History Past Medical History: Coronary Artery Disease (CAD), Cancer, Chest Pain / Angina, Fibromyalgia, Hypertension, Myocardial Infarction ([place]), Musculoskeletal Disorder, Osteoarthritis (OA), Prostate Disorder, Rheumatoid Arthritis ([place]) Additional Past Medical History / Comment(s): Prostate cancer with radiation in 2016, BPH, arthritis in multiple joints, chronic low back pain with bilateral sciatica, pt states he put his back out earlier this week, bronchitis, pneumothorax with chest tube in 2001 after a fall, hemorrhoids years ago. Last Myocardial Infarction Date:: 2012 History of Any Multi-Drug Resistant Organisms: None Reported Past Surgical History: Heart Catheterization, Heart Catheterization With Stent, Joint Replacement, Orthopedic Surgery Additional Past Surgical History / Comment(s): 2014 cardiac cath, 2012 PCI with stents to LAD, L knee arthroscopy, total R knee, L shoulder arthroscopy, L carpal tunnel release, colonoscopy. Past Anesthesia/Blood Transfusion Reactions: No Reported Reaction Additional Past Anesthesia/Blood Transfusion Reaction / Comment(s): no hx blood transfusion Date of Last Stent Placement:: 2012 Smoking Status: Never smoker - Past Family History Father Family Medical History: Cancer Additional Family Medical History / Comment(s): kidney/bone cancer- of at the age of 59yrs. Mother Family Medical History: Musculoskeletal Disorder, Neurologic Disorder Additional Family Medical History / Comment(s): Mother of Ghada Braeden's disease Medications and Allergies Home Medications Medication Instructions Recorded Confirmed Type Nitroglycerin Sl Tabs [Nitrostat] 0.4 mg PO Q5M PRN 01/15/15 07/05/19 History Metoprolol Tartrate 25 mg PO BID 01/16/15 07/05/19 History Spironolactone [Aldactone] 25 mg PO DAILY 01/16/15 07/05/19 History Sildenafil [Revatio] 40 mg PO DAILY PRN 05/02/17 07/05/19 History Oxybutynin Chloride 5 mg PO BID 06/19/18 07/05/19 History DULoxetine HCL [Cymbalta] 30 mg PO TID 06/26/18 07/05/19 History Cyclobenzaprine [Flexeril] 10 mg PO TID PRN 07/05/19 07/05/19 History Hydrocodone/Acetaminophen [[place] 1 tab PO QID PRN 07/05/19 07/05/19 History 10-325] Lisinopril 20 mg PO DAILY 07/05/19 07/05/19 History Montelukast [Singulair] 10 mg PO HS 07/05/19 07/05/19 History Tamsulosin HCl [Flomax] 0.4 mg PO BID 07/05/19 07/05/19 History Allergies Allergy/AdvReac Type Severity Reaction Status Date / Time Sulfa (Sulfonamide Allergy Rash/Hives Verified 07/05/19 10:56 Antibiotics) Physical Exam Vitals: Vital Signs Temp Pulse Pulse Resp BP BP BP 07/05/19 19:28 97.9 F 57 L 18 131/75 07/05/19 15:51 98.3 F 58 L 18 149/84 07/05/19 12:44 98.4 F 78 18 188/81 07/05/19 12:35 98 F 74 18 136/75 07/05/19 12:07 98 F 74 18 136/75 07/05/19 11:00 88 18 131/80 07/05/19 09:47 64 16 107/66 07/05/19 09:05 97.9 F 62 18 175/92 Pulse Ox 07/05/19 19:28 96 07/05/19 15:51 93 L 07/05/19 12:44 95 07/05/19 12:35 96 07/05/19 12:07 96 07/05/19 11:00 95 07/05/19 09:47 96 07/05/19 09:05 97 Intake and Output 07/05/19 07/05/19 07/06/19 14:59 22:59 06:59 Intake Total 419.841 Balance 419.841 Intake: Intake, IV Titration 179.841 Amount Heparin Sod,Pork in 0.45% 79.841 NaCl 25,000 unit In 0.45 % NaCl 1 250ml.bag @ 8.48 UNITS/KG/HR 10.001 mls/ hr IV .Q24H RANJANA Rx#: [id number] Sodium Chloride 0.9% 1, 100 000 ml @ 100 mls/hr IV . Q10H STA Rx#:[id number] Oral 240 Other: Voiding Method Toilet Toilet Weight 117.934 kg PHYSICAL EXAMINATION: Patient is lying in the bed comfortably, no acute distress, awake alert and oriented.. HEENT: Normocephalic. Neck is supple. Pupils reactive. Nostrils clear. Oral cavity is moist. Ears reveal no drainage. Neck reveals no JVD, carotid bruits, or thyromegaly. CHEST EXAMINATION: Trachea is central. Symmetrical expansion. Lung corona clear to auscultation and percussion. CARDIAC: Normal S1, S2 with no gallops. No murmurs ABDOMEN: Soft. Bowel sounds normal. No organomegaly. No abdominal bruits. Extremities: reveal no edema. No clubbing or cyanosis Neurologically awake, alert, oriented x3 with well-coordinated movements. No focal deficits noted Skin: No rash or skin lesions. Psychiatric: Coperative. Nonsuicidal Musculoskeletal: No joint swelling or deformity. Normal range of motion. Results CBC & Chem 7: 07/05/19 09:29 07/05/19 09:29 Labs: Abnormal Lab Results - Last 24 Hours (Table) 07/05/19 Range/Units 09:29 Glucose 121 H (74-99) mg/dL Thrombosis Risk Factor Assmnt - DVT/VTE Prophylaxis DVT/VTE Prophylaxis: Pharmacologic Prophylaxis ordered - Choose All That Apply Any of the Below Risk Factors Present?: Yes Each Factor Represents 1 point: Obesity (BMI >25) Other Risk Factors: Yes Each Risk Factor Represents 2 Points: Age 61-74 years, Malignancy Other congenital or acquired thrombophilia - If yes, enter type in comment: No Thrombosis Risk Factor Assessment Total Risk Factor Score: 5 Thrombosis Risk Factor Assessment Level: High Risk Assessment and Plan Assessment: Atypical right-sided chest pain. Ruled out dissection. Rule out ACS. Uncontrolled hypertension on admission Hepatic steatosis. History of coronary artery disease status post stent placement in 2038. History of [place] Prostate cancer with radiation to the 16 BPH Osteoarthritis and Chronic low back pain Rheumatoid arthritis Morbid obesity BMI 38.4 DVT prophylaxis with heparin subcu Plan: Patient will be continued on telemetry monitoring. Serial EKGs and troponins. Cardiology is following and 2-D echocardiogram was ordered. Follow-up d-dimer level. Current with home medications and further recommendations based on the clinical course. Time with Patient: Greater than 30
[2019-07-06 12:14] VITALS: BP 129/72; PULSE 59; TEMP 98.1
[2019-07-06] MEDS: METOPROLOL TARTRATE 25 MG TAB PO SCH (12:48)
--- NOTE | 2019-07-11 21:38 | P.DS ---
Providers Date of admission: 07/05/19 11:34 Expected date of discharge: 07/06/19 Attending physician: Luzma Doan Consults: 07/05/19 11:37 Consult Physician Urgent Consulting Provider: Rufino De Leon Consult Reason/Comments: Unstable angina Do you want consulting provider notified?: Yes Primary care physician: Camelia Cintron [facility] Course: Discharge diagnosis Atypical right-sided chest pain. Ruled out dissection. Ruled out ACS. Uncontrolled hypertension on admission Hepatic steatosis. History of coronary artery disease status post stent placement in 2038. History of [place] Prostate cancer with radiation to the 16 BPH Osteoarthritis and Chronic low back pain Rheumatoid arthritis Morbid obesity BMI 38.4 DVT prophylaxis with heparin subcu Hospital course Patient is a 64-year-old male with a known history of coronary artery disease, [place] 6 years back status post stent placement, hypertension, prostate cancer with radiation in 2016, BPH, osteoarthritis and chronic low back pain and sciatica as well as rheumatoid arthritis came to ER with the complaints of chest pain started below the right shoulder blade and radiated below the right breast margin. Sharp pain. Associated with shortness of breath. Denied any nausea vomiting or abdominal pain. No diaphoresis. No headache or dizziness or lightheadedness. Patient says that he took 2 nitro tablets at home without much relief. Patient says that his symptoms are similar to previous [place]. Came to ER for further evaluation. No cough or sputum production. Denied any fever or chills. Patient has been taking his medications regularly. EKG showed normal sinus rhythm. Troponin 1 negative. Chest x-ray showed chronic appearing patchy density right lower lobe with nodular component at the right costophrenic angle. No new areas of infiltrate appreciated this time. CT thorax showed no evidence of aneurysm or dissection of the aorta. Ultrasound abdomen showed no sonographic evidence of cholelithiasis R acute cholecystitis. Sonographic findings most commonly related to hepatic steatosis. Correlate with liver function tests. BNP not elevated. Liver function tests within normal limits. 07/06/2019 Patient denied any complaints of chest pain today. No worsening shortness of breath. 2-D echocardiogram was done. Cardiology has seen the patient. Due to elevated d-dimer level, CT angiogram was done which is negative for pulmonary embolism. Patient is cleared from cardiology standpoint. Patient wants to be discharged home. PHYSICAL EXAMINATION: Patient is lying in the bed comfortably, no acute distress, awake alert and oriented.. HEENT: Normocephalic. Neck is supple. Pupils reactive. Nostrils clear. Oral cavity is moist. Ears reveal no drainage. Neck reveals no JVD, carotid bruits, or thyromegaly. CHEST EXAMINATION: Trachea is central. Symmetrical expansion. Lung corona clear to auscultation and percussion. CARDIAC: Normal S1, S2 with no gallops. No murmurs ABDOMEN: Soft. Bowel sounds normal. No organomegaly. No abdominal bruits. Extremities: reveal no edema. No clubbing or cyanosis Neurologically awake, alert, oriented x3 with well-coordinated movements. No focal deficits noted Skin: No rash or skin lesions. Psychiatric: Coperative. Nonsuicidal Musculoskeletal: No joint swelling or deformity. Normal range of motion. Vital Signs Temp 98.1 F 07/06/19 04:00 Pulse 56 L 07/06/19 04:00 Resp 18 07/06/19 04:00 BP 119/65 07/06/19 04:00 Pulse Ox 98 07/06/19 04:00 Intake & Output 07/05/19 07/06/19 07/06/19 18:59 06:59 18:59 Intake Total 240 305.896 Balance 240 305.896 Weight 117.934 kg Intake: Intake, IV Titration 285.896 Amount Heparin Sod,Pork in 0.45% 185.896 NaCl 25,000 unit In 0.45 % NaCl 1 250ml.bag @ 8.48 UNITS/KG/HR 10.001 mls/ hr IV .Q24H RANJANA Rx#: [id number] Sodium Chloride 0.9% 1, 100 000 ml @ 100 mls/hr IV . Q10H STA Rx#:[id number] Oral 240 20 Other: Voiding Method Toilet Toilet Patient Condition at Discharge: Good Plan - Discharge Summary Discharge Rx Participant: No New Discharge Prescriptions: New Aspirin 81 mg PO DAILY #30 chew Atorvastatin [Lipitor] 40 mg PO HS #30 tablet Continue Nitroglycerin Sl Tabs [Nitrostat] 0.4 mg PO Q5M PRN PRN Reason: Chest Pain Metoprolol Tartrate 25 mg PO BID Spironolactone [Aldactone] 25 mg PO DAILY Sildenafil [Revatio] 40 mg PO DAILY PRN PRN Reason: E.D. Oxybutynin Chloride 5 mg PO BID DULoxetine HCL [Cymbalta] 30 mg PO TID Lisinopril 20 mg PO DAILY Hydrocodone/Acetaminophen [[place] 10-325] 1 tab PO QID PRN PRN Reason: Pain Cyclobenzaprine [Flexeril] 10 mg PO TID PRN PRN Reason: Muscle Spasm Montelukast [Singulair] 10 mg PO HS Tamsulosin HCl [Flomax] 0.4 mg PO BID Discharge Medication List Nitroglycerin Sl Tabs [Nitrostat] 0.4 mg PO Q5M PRN 01/15/15 [History] Metoprolol Tartrate 25 mg PO BID 01/16/15 [History] Spironolactone [Aldactone] 25 mg PO DAILY 01/16/15 [History] Sildenafil [Revatio] 40 mg PO DAILY PRN 05/02/17 [History] Oxybutynin Chloride 5 mg PO BID 06/19/18 [History] DULoxetine HCL [Cymbalta] 30 mg PO TID 06/26/18 [History] Cyclobenzaprine [Flexeril] 10 mg PO TID PRN 07/05/19 [History] Hydrocodone/Acetaminophen [[place] 10-325] 1 tab PO QID PRN 07/05/19 [History] Lisinopril 20 mg PO DAILY 07/05/19 [History] Montelukast [Singulair] 10 mg PO HS 07/05/19 [History] Tamsulosin HCl [Flomax] 0.4 mg PO BID 07/05/19 [History] Aspirin 81 mg PO DAILY #30 chew 07/06/19 [Rx] Atorvastatin [Lipitor] 40 mg PO HS #30 tablet 07/06/19 [Rx] Follow up Appointment(s)/Referral(s): Rufino De Leon MD [STAFF PHYSICIAN] - 1 Week Gregory Denise MD [Primary Care Provider] - 1-2 days Patient Instructions/Handouts: Chest Pain (ED) Discharge Disposition: HOME SELF-CARE
== END 2019-07-06 12:46 | disposition home or self-care (01) ==
LOC: EC 08:59 → 1SOBS 11:34
PROVIDERS: ADMIT Internal Medicine; ATTEND Internal Medicine
DX: R07.89 Other chest pain (principal); I10 Essential (primary) hypertension; R79.89 Other specified abnormal findings of blood chemistry; I25.110 Atherosclerotic heart disease of native coronary artery with unstable angina pectoris; R06.02 Shortness of breath; M15.9 Polyosteoarthritis, unspecified; R11.0 Nausea; M06.9 Rheumatoid arthritis, unspecified; M79.7 Fibromyalgia; K76.0 Fatty (change of) liver, not elsewhere classified; N40.0 Benign prostatic hyperplasia without lower urinary tract symptoms; G89.29 Other chronic pain; M54.41 Lumbago with sciatica, right side; M54.42 Lumbago with sciatica, left side; E66.01 Morbid (severe) obesity due to excess calories; Z68.38 Body mass index [BMI] 38.0-38.9, adult; K64.9 Unspecified hemorrhoids; Z79.82 Long term (current) use of aspirin; Z79.891 Long term (current) use of opiate analgesic; Z79.899 Other long term (current) drug therapy; Z88.2 Allergy status to sulfonamides; Z92.3 Personal history of irradiation; I25.2 Old myocardial infarction; Z85.46 Personal history of malignant neoplasm of prostate; Z96.651 Presence of right artificial knee joint; Z95.5 Presence of coronary angioplasty implant and graft; Z87.828 Personal history of other (healed) physical injury and trauma; Z80.9 Family history of malignant neoplasm, unspecified; Z82.0 Family history of epilepsy and other diseases of the nervous system
CPT/HCPCS: 93005 ×2; 96366 ×2; 96376 ×2; 96365; 99285; 36415; 85379; 83880; 80061; 80053; 82150; 83690; 83735; 84484; 85025; 85610; 85730 ×2; 71046; 76705; 71275 ×2; 74174; 90732; 90686; G0378 ×2; C8929; G0008; G0009; J1644 ×2; Q9950; Q9967 ×2; 93306

== ENCOUNTER → 2019-09-02 | Outpatient (CLI) | payer MEDICARE, BC ==
[2019-09-02 12:58] LABS: Basophils % (A) 1 %; Eosinophils # (A) 0.1 k/uL (0-0.7); Eosinophils % (A) 2 %; HCT 45.9 % (39.0-53.0); HGB 14.9 gm/dL (13.0-17.5); Lymphocytes # (A) 1.1 k/uL (1.0-4.8); Lymphocytes % (A) 18 %; MCH 31.9 pg (25.0-35.0); MCHC 32.5 g/dL (31.0-37.0); Mean Platelet Volume 7.2; Monocytes # (A) 0.4 k/uL (0-1.0); Monocytes % (A) 6 %; Neutrophils # (A) 4.2 k/uL (1.3-7.7); Neutrophils % (A) 71 %; Platelet Count 233 k/uL (150-450); RBC 4.69 m/uL (4.30-5.90); RDW 13.2 % (11.5-15.5); WBC 5.9 k/uL (3.8-10.6)
[2019-09-02 14:22] LABS: Erythrocyte Sedimentation Rate 2 mm/hr (0-15)
[2019-09-02 23:43] LABS: C Reactive Protein <0.4 mg/dL (0.0-0.8); Rheumatoid Factor, Qnt 7 IU/mL (0-15)
[2019-09-03 00:04] LABS: Uric Acid 7.1 mg/dL (3.7-8.7)
[2019-09-03 12:00] LABS: ANA Pattern Speckled; ANA Pattern 2 See Footnote
[2019-09-03 12:37] LABS: HLA B27 NEGATIVE
== END | disposition home or self-care (01) ==
LOC: LABWHC1 12:04
PROVIDERS: ATTEND Orthopaedic Surgery
DX: M25.50 Pain in unspecified joint (principal)
CPT/HCPCS: 36415; 84550; 85025; 85652; 86038; 86039; 86140; 86431; 86812

== ENCOUNTER 2020-02-14 14:46 | Emergency (ER) | payer OTHER, MEDICARE, BC ==
[2020-02-14 15:03] VITALS: BP 159/87; PULSE 75; RESP 16; TEMP 98.4
[2020-02-14] MEDS ORDERED: SODIUM CHLORIDE 0.9% 1,000 ML IV STA (15:28)
[2020-02-14] MEDS ORDERED: diphenhydrAMINE 50 MG/ML 1 ML VIAL IVP STA (15:30)
[2020-02-14] MEDS ORDERED: METOCLOPRAMIDE 5 MG/ML 2 ML VIAL IVP STA (15:30)
[2020-02-14] MEDS ORDERED: DEXAMETHASONE SOD PHOSPHATE 10 MG/ML 1 ML VIAL IV STA (15:30)
[2020-02-14 16:13] LABS: Basophils # (A) 0.1 k/uL (0-0.2); Basophils % (A) 1 %; Eosinophils # (A) 0.1 k/uL (0-0.7); Eosinophils % (A) 2 %; HCT 43.3 % (39.0-53.0); HGB 14.1 gm/dL (13.0-17.5); Lymphocytes # (A) 1.3 k/uL (1.0-4.8); Lymphocytes % (A) 18 %; MCH 31.7 pg (25.0-35.0); MCHC 32.6 g/dL (31.0-37.0); MCV 97.1 fL (80.0-100.0); Mean Platelet Volume 6.9; Monocytes # (A) 0.6 k/uL (0-1.0); Monocytes % (A) 8 %; Neutrophils # (A) 5.1 k/uL (1.3-7.7); Neutrophils % (A) 69 %; Platelet Count 230 k/uL (150-450); RBC 4.46 m/uL (4.30-5.90); RDW 12.9 % (11.5-15.5); WBC 7.4 k/uL (3.8-10.6)
[2020-02-14 16:20] LABS: ALT 20 U/L (4-49); AST 26 U/L (17-59); African American GFR (CKD) >90 (>60 ml/min/1.73 sqM); Albumin 4.4 g/dL (3.5-5.0); Alkaline Phosphatase 43 U/L (38-126); Anion Gap 9 mmol/L; Blood Urea Nitrogen 22 mg/dL (9-20); Calcium 9.6 mg/dL (8.4-10.2); Carbon Dioxide 25 mmol/L (22-30); Chloride 103 mmol/L (98-107); Glucose 124 mg/dL (74-99); Non-African American GFR(CKD) 84 (>60 ml/min/1.73 sqM); Potassium 4.4 mmol/L (3.5-5.1); Sodium 137 mmol/L (137-145); Total Bilirubin 0.5 mg/dL (0.2-1.3); Total Protein 7.5 g/dL (6.3-8.2)
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
[2020-02-14] MEDS ORDERED: KETOROLAC 30 MG/ML 1 ML VIAL IVP STA (16:27)
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
== END 2020-02-14 17:57 | disposition home or self-care (01) ==
LOC: EC 14:46
DX: R51 Headache (principal); M62.838 Other muscle spasm; I25.119 Atherosclerotic heart disease of native coronary artery with unspecified angina pectoris; I10 Essential (primary) hypertension; I25.2 Old myocardial infarction; Z79.899 Other long term (current) drug therapy; Z79.51 Long term (current) use of inhaled steroids; Z88.2 Allergy status to sulfonamides; Z85.46 Personal history of malignant neoplasm of prostate; Z92.3 Personal history of irradiation; Z95.5 Presence of coronary angioplasty implant and graft
CPT/HCPCS: 36415; 93005; 80053; 85025; 72125; 70450; 99285; 96374; 96375 ×3; 96361; J1200; J1100; J2765; J1885

== ENCOUNTER → 2020-04-22 | Outpatient (CLI) | payer MEDICARE, BC ==
[2020-04-22 14:31] LABS: Appearance,Urine Clear (Clear); Bilirubin,Urine Negative (Negative); Blood,Urine Negative (Negative); Color,Urine Yellow; Glucose,Urine (UA) Negative (Negative); Ketones,Urine Negative (Negative); Leukocyte Esterase,Urine Negative (Negative); Nitrite,Urine Negative (Negative); Protein,Urine Negative (Negative); Specific Gravity,Urine 1.007 (1.001-1.035); Urobilinogen,Urine <2.0 mg/dL (<2.0)
== END | disposition home or self-care (01) ==
LOC: LABWHC1 12:23
PROVIDERS: ATTEND Radiology Radiation Oncology
DX: C61 Malignant neoplasm of prostate (principal); Z85.46 Personal history of malignant neoplasm of prostate; Z92.3 Personal history of irradiation
CPT/HCPCS: 36415; 81003; 84153

== ENCOUNTER → 2020-10-01 | Outpatient (CLI) | payer OTHER, MEDICARE, BC ==
--- NOTE | 2020-10-01 18:57 | MR ---
EXAMINATION TYPE: MR cervical spine wo con DATE OF EXAM: 10/01/2020 COMPARISON: Plain film 07/03/2020, 75 cc 02/14/2020 HISTORY: Headache, Neck and shoulder pain, Pain in fingers, Hx of surgery TECHNIQUE: Multiplanar, multisequence images of the cervical spine were acquired. C2-C3: No evidence for degenerative disc disease. No disc bulge/herniation or protrusion. No Canal stenosis. Foramina are patent bilaterally. C3-C4: Lateral extension endplate disc complex encroaches towards the right contributing to cause for aminal encroachment contributed by hypertrophied and facet arthropathy, bilateral foraminal encroachm ent present. No significant spinal stenosis C4-C5: Left-sided foraminal encroachment is present due to uncovertebral joint hypertrophy and facet arthropathy. No significant disc herniation or spinal stenosis. C5-C6: Posterior extension of endplate disc complex results in moderate to severe central canal steno sis, foraminal encroachment is present bilaterally right greater than left. No definite myelopathy. C6-C7: Posterior extension endplate disc complex results in moderate central canal stenosis. There is foraminal encroachment right greater than left. C7-T1: No evidence for degenerative disc disease. No disc bulge/herniation or protrusion. No Canal stenosis. Foramina are patent bilaterally. Cervical segments are intact. There is normal alignment. Cervical spinal cord is of normal signal. Craniovertebral junction relationships are within normal limits. There is multilevel spondylosis pr esent. Endplate discogenic marrow signal changes are present, there is loss of disc height and signal present at C5-6 and C6-7. There may be a spinal curvature. IMPRESSION: Degenerative disc disease, multilevel foraminal encroachment. Possible spinal curvature.
== END | disposition home or self-care (01) ==
LOC: RADMRIMAIN 12:16
PROVIDERS: ATTEND Orthopaedic Surgery
DX: M50.30 Other cervical disc degeneration, unspecified cervical region (principal)
CPT/HCPCS: 72141

== ENCOUNTER 2020-11-24 09:24 | Day surgery (SDC) | payer OTHER, MEDICARE, BC ==
[2020-11-19 08:55] VITALS: BMI 39.1
[2020-11-24 09:43] VITALS: RESP 16; TEMP 96.7
[2020-11-24] MEDS ORDERED: DEXAMETHASONE SOD PHOSPHATE 10 MG/ML 1 ML VIAL ONE (09:49)
[2020-11-24] MEDS ORDERED: IOPAMIDOL M200 10 ML VIAL ONE (09:49)
--- NOTE | 2020-11-24 10:13 | P.PCN ---
Date of Procedure: 11/24/20 Description of Procedure: Diagnosis: Cervical radiculopathy Cervical degenerative disc disease POSTOPERATIVE DIAGNOSIS: Diagnoses: Cervical radiculopathy Cervical degenerative disc disease PROCEDURE Cervical Epidural steroid injection under fluoroscopic guidance at the C7-T1 interspace using left paramedian approach Cervical epidurogram ANESTHESIA: Local with 1% lidocaine 3 ml Fluoroscopy was used for the procedure and images were saved in the radiology portion of the chart. EBL: Minimal PROCEDURE INDICATION: The patient presents with cervical radicular symptoms unresponsive to conservative treatment. This is the [first/ second] cervical epidural steroid injection. PROCEDURE DESCRIPTION / TECHNIQUE: The patient was seen and identified in the preoperative area. Risks, benefits, complications including but not limited to infections ,bleeding ,allergic reaction to the medications ,nerve damage and incomplete pain relief, and alternatives were discussed with the patient. The patient agreed to proceed with the procedure and signed the consent. IV was started, and vital signs were stable. Patient was taken to the OR and time out was completed. The patient was placed in the prone position on procedure table and a pillow was placed under the chest area. The cervical area was prepped and draped in the usual sterile fashion. Conscious sedation was used during the procedure to decrease patients anxiety. Vital signs was monitored during the entire procedure. Using anterior-posterior fluoroscopy, the C7-T1 interlaminar space was identified and the skin over this site was marked and then infiltrated with 1% lidocaine subcutaneously. Subsequently, a 20-gauge Tuohy epidural needle was inserted and advanced toward the epidural space using the loss of resistance technique and guided by AP and 50 oblique fluoroscopy. The correct needle position in the epidural space was verified. After negative aspiration for blood and CSF and in the absence of paresthesias, Isovue 200 2 mL's was injected under live fluoroscopy with good epidural spread. After negative aspiration, a 4 ml mixture containing 10 mg of dexamethasone, 3 mL of preservative free normal saline was injected. Needle was withdrawn intact, skin was cleansed, and bandages were applied. COMPLICATIONS: None DISPOSITION / PLANS: The patient was placed in a supine position and transferred to the recovery area in a stable condition for observation. There was no evidence of lower extremity motor or sensory deficit after the procedure. Patient was discharged from the recovery room after meeting discharge criteria. Home discharge instructions were given to the patient by the staff. The patient will be scheduled a repeat procedure in 2-4 weeks.
[2020-11-24 10:19] VITALS: BP 144/73; PULSE 63
--- NOTE | 2020-11-24 14:20 | FL ---
Fluoroscopy INDICATION: Pain FINDINGS: Fluoroscopy time: 25 seconds. Images obtained: 2. IMPRESSIONS: 1. Documentation of fluoroscopy.
== END 2020-11-24 10:32 | disposition home or self-care (01) ==
LOC: ORPAIN 09:24
PROVIDERS: ATTEND Anesthesiology
DX: M50.10 Cervical disc disorder with radiculopathy, unspecified cervical region (principal); M48.02 Spinal stenosis, cervical region; Z88.2 Allergy status to sulfonamides
CPT/HCPCS: 62321; J1100; Q9966

== ENCOUNTER 2020-12-15 12:28 | Day surgery (SDC) | payer MEDICARE, BC ==
[2020-12-11 16:04] VITALS: BMI 39.9
[~2020-12-15 12:28] MED LIST changes: +LACTATED RINGERS 1,000 ML IV SCH; -LIDOCAINE 1% 20 ML VIAL (10MG/ML) FOR IV START INTRADERMA PRN; -MELOXICAM 7.5 MG TAB PO ONE; -MIDAZOLAM 2 MG/2 ML VIAL IV PRN; -VANCOMYCIN 1,750 MG in SODIUM CHLORIDE 0.9% 500 ML 500 ML IVPB ONE; -fentaNYL (PF) 50 MCG/ML 2 ML AMP IV PRN
[2020-12-15 12:44] VITALS: TEMP 97.3
[2020-12-15] MEDS ORDERED: IOPAMIDOL M200 10 ML VIAL ONE (12:48)
[2020-12-15] MEDS ORDERED: DEXAMETHASONE SOD PHOSPHATE 10 MG/ML 1 ML VIAL ONE (12:48)
--- NOTE | 2020-12-15 13:01 | P.PCN ---
Date of Procedure: 12/15/20 Description of Procedure: PROCEDURE 1. Cervical epidural steroid injection under fluoroscopic guidance, C7-T1 2. Cervical epidurogram. PREOPERATIVE DIAGNOSIS: Cervical radiculopathy POSTOPERATIVE DIAGNOSIS: Cervical radiculopathy Imaging: Fluoroscopy was used, images where saved to the medical record ANESTHESIA: Local anesthesia with 1% lidocaine PROCEDURE DESCRIPTION / TECHNIQUE: The patient was seen and identified in the preoperative area. Risks, benefits, and alternatives were discused with the patient and the patient has consented to the procedure. Risks of the procedure include potential for bleeding, infection, nerve damage, and incomplete pain relief were discussed with the patient. All questions were answered for the patient Patient was taken to the OR and time out was completed. The patient was placed in the prone position on the procedure table. A pillow was placed under the patients chest to increase the cervical interlaminar space. The cervical area was prepped and draped in the usual sterile fashion. Vital signs were closely monitored during the procedure. Using anterior-posterior fluoroscopy, the C7-T1 interlaminar space was identified and the skin over this site was marked and then infiltrated with 1% lidocaine subcutaneously. Subsequently, a 20-gauge 3-1/2-inch Tuohy epidural needle was inserted and advanced toward the epidural space by means of the plnv-or-epxtnawvlw technique and guided by AP and lateral fluoroscopy. The correct needle position in the epidural space was verified with the injection of 1 mL of the water soluble contrast dye Isovue-180 and observing an excellent epidurogram with the epidural spread of the dye, after negative aspiration for blood and CSF and in the absence of paresthesias. Again after negative a spiration, a mixture containing 10 mg Dexamethasone and 2 ml of preservative- free normal saline injected and a washout of epidurogram was seen. Needle was withdrawn intact, skin was cleansed, and bandages were applied. Complications: none. Disposition: patient was placed in supine position and transferred to the recovery room area in stable condition and there was no evidence of upper or lower extremity motor or sensory deficit after the procedure patient was discharged from recovery room after discharge criteria met and home discharge instructions was given by the staff and patient will follow with the pain as directed.
[2020-12-15 13:07] VITALS: BP 164/76; PULSE 62; RESP 16
--- NOTE | 2020-12-15 13:10 | FL ---
EXAMINATION TYPE: FL guided pain mgmt statistic DATE OF EXAM: 12/15/2020 CLINICAL HISTORY: Neck pain. TECHNIQUE: Fluoroscopy. COMPARISON: None. FINDINGS: Fluoroscopic guidance was provided during pain relief procedure performed by Dr. Castro . A total of 7 seconds of fluoroscopic time was utilized during the procedure and 1 spot images are a cquired. Single image acquired shows needle localization near cervicothoracic junction. IMPRESSION: As Above.
== END 2020-12-15 13:20 ==
LOC: ORPAIN 12:28
PROVIDERS: ATTEND Hospitalist
DX: M54.12 Radiculopathy, cervical region (principal); Z88.2 Allergy status to sulfonamides
CPT/HCPCS: 62321; J1100; Q9966

== ENCOUNTER → 2021-03-17 | Outpatient (CLI) | payer OTHER, MEDICARE, BC ==
[2021-03-17 09:47] VITALS: BP 152/85; PULSE 81; RESP 18; TEMP 97.8
--- NOTE | 2021-03-17 09:56 | P.PN ---
Subjective Progress Note Date: 03/17/21 This is a 65-year-old gentleman with history of neck pain with radiation to the shoulders and numbness and tingling in both hands. The patient had an EMG done. Months ago as he states that no one called him about the results of the EMG. When he had the EMG there was no paresthesia in the upper extremities at that time. He received 2 cervical epidural steroid injections and the reported 40% of pain relief however he still has to pain mostly in the neck with radiation to the shoulders bilaterally. This pain gets worse by neck movement. Some weakness in the upper extremities. Patient denies new-onset bowel/bladder incontinence, or any other signs or symptoms of cauda equina syndrome. There are no signs of acute intoxication, and no indications of medication diversion or overuse. In addition to above, 13-point review of systems is also negative for chest yesenia n, shortness of breath, changes in vision, changes in hearing, new onset weakness, abdominal pain, diarrhea, extreme fatigue, malaise, fever, skin changes, homicidal or suicidal ideation, or bowel or bladder incontinence. Vital Signs: Reviewed in EMR Gen: AAOx3, NAD HEENT: PERRLA,hearing grossly normal Pulm: resp unlabored Neck: supple, trachea midline Neuro exam of the upper extremities: Showed decreased wrist flexion and extension to 4 out of 5 bilaterally, normal ankle flexion and extension and normal deltoid abduction bilaterally. Straight leg raising test: Adam's test: Range of motion of the cervical spine: Mildly decreased due to pain with right and left rotation especially Facet loading test: Tenderness in the paravertebral musculature: Positive on the cervical area bilaterally and also in the trapezius muscles bilaterally Patient has swelling on the dorsal aspect of both wrists. Neuro: CN II-XII grossly intact, Imaging: Reviewed in EMR/chart Assessment: Cervical spondylosis without myelopathy Cervical radiculopathy Possible carpal tunnel syndrome Generalized arthritis Plan: 1. Explanation: When patients on opioids, opioid and psychological risk scores were reviewed. Diagnoses, prognoses, and multiple treatment options including but not limited to physical therapy, interventional therapies, adjuvant medical therapies, narcotic medication therapies, and surgery were discussed with the patient and all questions were answered to the patient's satisfaction. 2. Opioid agreement:When patients are prescribed opoids through our clinic, opioid agreement is signed with the patient and the patient is warned not to use opioids while driving or before driving and not to combine opioids with benzodiazepines or alcohol. 3. Counseling: When patient is smoking or obese, the patient was counseled extensively on SMOKING CESSATION, BODY MASS INDEX, EXERCISE. Specifically, the patient was instructed regarding the importance of smoking cessation, obesity, and exercise in the context of both chronic pain and overall health. 4. Procedures: Schedule for diagnostic cervical medial branch block for levels C4, C5, and C6 bilaterally 5. Consultations: None 6. Investigations: None 7. Medications: Patient gets [place] from Dr. Bailon 8. Disposition: Proceed with the above-mentioned procedure as soon as possible. We will try to obtain the results of his last EMG of the upper extremities from Dr. Gonsales's office. 9. Maps were reviewed and were appropriate. Objective - Vital Signs Vital signs: Vital Signs Temp 97.8 F 03/17/21 09:42 Pulse 81 03/17/21 09:42 Resp 18 03/17/21 09:42 BP 152/85 03/17/21 09:42 Pulse Ox 95 03/17/21 09:42 Intake & Output 03/16/21 03/17/21 03/17/21 18:59 06:59 18:59 Weight 120.202 kg
== END ==
LOC: PNWHC3 09:27
PROVIDERS: ATTEND Anesthesiology
DX: M47.22 Other spondylosis with radiculopathy, cervical region (principal); M19.90 Unspecified osteoarthritis, unspecified site; Z88.2 Allergy status to sulfonamides
CPT/HCPCS: 99211

== ENCOUNTER → 2021-04-16 | Outpatient (CLI) | payer MEDICARE, BC ==
[2021-04-16 21:31] LABS: Prostate Specific Antigen 0.2 ng/mL (0.0-4.5)
== END | disposition home or self-care (01) ==
LOC: LABWHC1 14:44
PROVIDERS: ATTEND Radiology Radiation Oncology
DX: Z08 Encounter for follow-up examination after completed treatment for malignant neoplasm (principal); C61 Malignant neoplasm of prostate; Z92.3 Personal history of irradiation
CPT/HCPCS: 36415; 84153; 84403

== ENCOUNTER 2021-04-23 08:57 | Day surgery (SDC) | payer OTHER, MEDICARE, BC ==
[2021-04-22 09:04] VITALS: BMI 40.6
[2021-04-23 09:14] VITALS: RESP 16; TEMP 97.7
[2021-04-23] MEDS ORDERED: ROPIVACAINE 5MG/ML 20ML VIAL ONE (10:00)
[2021-04-23] MEDS ORDERED: methylPREDNISolone ACETATE 40 MG/ML 1 ML VIAL ONE (10:00)
--- NOTE | 2021-04-23 10:38 | P.PCN ---
Date of Procedure: 04/23/21 Procedure(s) Performed: PREOPERATIVE DIAGNOSIS: Cervical Spondylosis with Facet Arthropathy.without myelopathy POSTOPERATIVE DIAGNOSIS: Cervical Spondylosis Facet Arthropathy. Without myelopathy PROCEDURES: Diagnostic Bilateral C3, C4 , C5 medial branch blocks, with fluoroscopic guidance (fluoroscopy images available in radiology department ) ( to target the facet joint at Bilateral C3-4 , C4- 5 , ) ANESTHESIA: none . EBL: Minimal PROCEDURE INDICATION: The patient with neck pain secondary to cervical arthropathy unresponsive to more conservative treatments. PROCEDURE DESCRIPTION / TECHNIQUE: The patient was seen and identified in the preoperative area. Risks, benefits, complications, and alternatives were discussed with the patient, the patient agreed to proceed with the procedure and signed the consent. IV was started. Vital signs remained stable throughout the procedure. Patient was taken to the OR and time out was completed. The patient was placed in the prone position on the procedure table. A pillow was placed under the patients chest to increase the cervical interlaminar space. The cervical area was prepped and draped in the usual sterile fashion. Critical pause was taken. V ital signs were closely monitored during the procedure. Using cross-table lateral fluoroscopy, the centroid of the trapezoid of right C3, C4 , C5 was identified, marked, and localized with 1% lidocaine 1 ml at each level for skin and Sub Q infiltrations . Subsequently, a 25 G 3 spinal needle was advanced guided by fluoroscopy to the centroid of the trapezoid of Right C3, C4 , C5 . [place] tip position was confirmed at the centroid of the trapezoids of Right C3 , C4 , C5 with anteroposterior fluoroscopy. Subsequently, 2 ml of preservative-free Ropivacaine 0.5% mixed with Depo-Medro l 20 mg and half ml of the mixture was injected after negative aspiration for blood and CSF. [place] was then removed intact the same procedure was repeated at the left C3 , C4 , C5 levels. COMPLICATIONS: No acute complications. COMMENTS: DISPOSITION / PLANS: The patient was placed in a supine position and transferred to the recovery area in a stable condition for observation and was discharged from the recovery room after meeting discharge criteria. Home discharge instructions given to the patient by the staff. The patient was reexamined prior to discharge. The patient will schedule a follow up in the clinic in 2-4 weeks. (Note = in prone position I was able to cc C2 and C3 for this reason we Swimmer position , next time I recommend to do supine or swimmer position , and I recommend to do one side RFA at time ,because it was very challenging to visualize the targeted area)
--- NOTE | 2021-04-23 10:43 | FL ---
Fluoroscopy INDICATION: Pain FINDINGS: Fluoroscopy time: 31 seconds. Images obtained: 4. IMPRESSIONS: 1. Documentation of fluoroscopy.
[2021-04-23 10:55] VITALS: BP 176/85; PULSE 66
== END 2021-04-23 11:03 | disposition home or self-care (01) ==
LOC: ORPAIN 08:57
PROVIDERS: ATTEND Specialist
DX: M47.812 Spondylosis without myelopathy or radiculopathy, cervical region (principal)
CPT/HCPCS: 64490; 64491; 64492; J1030; J2795

== ENCOUNTER 2021-06-04 09:29 | Day surgery (SDC) | payer OTHER, MEDICARE, BC ==
[2021-06-03 11:56] VITALS: BMI 40.6
[2021-06-04 10:07] VITALS: RESP 16; TEMP 97.3
[2021-06-04] MEDS ORDERED: LIDOCAINE 1% (10MG/ML) FOR IV START INTRADERMA ONE (10:12)
[2021-06-04] MEDS ORDERED: ROPIVACAINE 5MG/ML 20ML VIAL ONE (10:18)
[2021-06-04] MEDS ORDERED: TRIAMCINOLONE ACETONIDE 40 MG/ML 1 ML VIAL ONE (10:18)
[2021-06-04] MEDS ORDERED: MIDAZOLAM 2 MG/2 ML VIAL ONE (10:18)
[2021-06-04] MEDS ORDERED: fentaNYL (PF) 50 MCG/ML 2 ML AMP ONE (10:18)
--- NOTE | 2021-06-04 10:47 | P.PCN ---
Date of Procedure: 06/04/21 Procedure(s) Performed: PREOPERATIVE DIAGNOSIS: Cervical Spondylosis with Facet Arthropathy.without myelopathy POSTOPERATIVE DIAGNOSIS: Cervical Spondylosis Facet Arthropathy. Without myelopathy PROCEDURES: Diagnostic Bilateral C3, C4 , C5 medial branch blocks, with fluoroscopic guidance (fluoroscopy images available in radiology department ) ( to target the facet joint at Bilateral C3-4 , C4- 5 , ) ANESTHESIA: MOnitered anesthesia care EBL: Minimal PROCEDURE INDICATION: The patient with neck pain secondary to cervical arthropathy unresponsive to more conservative treatments. PROCEDURE DESCRIPTION / TECHNIQUE: The patient was seen and identified in the preoperative area. Risks, benefits, complications, and alternatives were discussed with the patient, the patient agreed to proceed with the procedure and signed the consent. IV was started. Vital signs remained stable throughout the procedure. Patient was taken to the OR and time out was completed. The patient was placed in the prone position ( swimmer view ) on the procedure table. A pillow was placed under the patients chest to increase the cervical interlaminar space. The cervical area was prepped and draped in the usual sterile fashion. Critical pause was taken. Vital signs were closely monitored during the procedure. sedations was used to decrease patients anexity . Using cross-table lateral fluoroscopy, the centroid of the trapezoid of right C3, C4 , C5 was identified, marked, and localized with 1% lidocaine 1 ml at each level for skin and Sub Q infiltrations . Subsequently, a 25 G 3 spinal needle was advanced guided by fluoroscopy to the centroid of the trapezoid of Right C3, C4 , C5 . [place] tip position was confirmed at the centroid of the trapezoids of Right C3 , C4 , C5 with anteroposterior fluoroscopy. Subsequently, 2 ml of preservative-free Ropivacaine 0.5% mixed with Kenalog 20 mg and half ml of the mixture was injected after negative aspiration for blood and CSF. [place] was then removed intact the same procedure was repeated at the left C3 , C4 , C5 levels. COMPLICATIONS: No acute complications. DISPOSITION / PLANS: The patient was placed in a supine position and transferred to the recovery area in a stable condition for observation and was discharged from the recovery room after meeting discharge criteria. Home discharge instructions given to the patient by the staff. The patient was reexamined prior to discharge. The patient will schedule a follow up in the clinic in 2-4 weeks. (Note = in prone position I was able to cc C2 and C3 for this reason we Swimmer position , next time I recommend to do supine or swimmer position , and I recommend to do one side RFA at time ,because it was very challenging to visuali ze the targeted area)
[2021-06-04] MEDS ORDERED: IV FLUID CONTINUATION 1,000 ML IV ONE ×2 (10:49)
--- NOTE | 2021-06-04 10:51 | FL ---
EXAMINATION TYPE: FL guided pain mgmt statistic DATE OF EXAM: 06/04/2021 CLINICAL HISTORY: Neck pain. TECHNIQUE: Fluoroscopy. COMPARISON: None. FINDINGS: Fluoroscopic guidance was provided during pain relief procedure performed by Dr. Hayes . A total of 30 seconds of fluoroscopic time was utilized during the procedure and two spot images a re acquired. Images acquired shows needle localization at several levels in the mid cervical spine f rom posterior approach. IMPRESSION: As Above.
[2021-06-04 11:15] VITALS: BP 152/84; PULSE 70
== END 2021-06-04 11:26 | disposition home or self-care (01) ==
LOC: ORPAIN 09:29
PROVIDERS: ATTEND Specialist
DX: M47.812 Spondylosis without myelopathy or radiculopathy, cervical region (principal); I25.10 Atherosclerotic heart disease of native coronary artery without angina pectoris; Z95.5 Presence of coronary angioplasty implant and graft; E66.9 Obesity, unspecified; Z68.41 Body mass index [BMI] 40.0-44.9, adult; Z88.2 Allergy status to sulfonamides
CPT/HCPCS: 64490; 64491; J2250; J3301; J3010; J2795

== ENCOUNTER → 2021-06-21 | Outpatient (CLI) | payer OTHER, MEDICARE, BC ==
[2021-06-21 10:48] VITALS: BP 161/79; PULSE 68; RESP 18
--- NOTE | 2021-06-21 10:56 | P.PN ---
Subjective Progress Note Date: 06/21/21 Steve is a 66-year-old male presented to clinic today for follow-up appointment after a bilateral cervical facet block of C3 4 and C4 5. This procedure was done on 06/04/2021. After procedures reported significant decrease in the pain in his neck. He reports that he had greater than 80% relief for several days after the procedure. However he feels that his pain has returned in his neck and radiates to the top of his left shoulder. He rates it as an 8 out of 10 at a 0-to-10 scale is worse. He reports that his pain is constant and anything cold increases his pain. He says is better with heat compresses, exercise, rn transitional care and certain positions. He currently takes [place] 10 mg and Fle xeril as needed from his primary care provider. He is also reported a smooth spasms in his left thoracic region. He would like to move forward with cervical radiofrequency ablation at C3 4 and C4 5. Objective - Exam Physical Examinations : -Constitutiona : Cooperative , not in acute distress . -HEENT : nech : supple , no Lymphadenopathy , normal thyroid size . : eyes : no ptosis , no icterus, no photophobia . - neurologic : Cranial nerve II to XII intact , no focal neurological deffecit . -psychatric : alert , oriented X 3 , appropriate affect , intact judgment and insight . -Lymphatic : no Lymphadenopathy . - musculoskeltal : Cervical Spine motor stregnth in the deltoid and biceps, normal right side , normal Left side motor stregnth biceps and the wrist extensors normal right side ,normal left side . motor stregnth in the triceps muscle . normal Right side , normal Left side deep tendon reflexes normal at the biceps , normal at Brachioradialis , normal at triceps. cervical facet loading test: Positive Bilaterally Spurling test= positive Right , positive left. Neck distraction test= positive Right , positive left. Lynne sign= negative Thoracic spine Left-sided paraspinous muscles and spasm and painful to palpation. Assessment and Plan Assessment: Assessment and plan Assessment: Cervical spondylosis with facet arthropathy without myelopathy Thoracic paravertebral muscle spasm with multiple trigger points Plan: Left cervical RFA at C3 4 and C45. Suggested to do single sides due to diffic ulty in visualizing patient's anatomy during the diagnostic and confirmatory procedures. Scheduled for right cervical RFA at C3 4 and C4 5 after the completion of the left-sided RFA - PQRS measures = - Patient's medications are documented in the chart. -Tobacco use is negative -Patient's has received pneumococcal vaccine. -Advanced care planning discussed, patient not eligible. -Opiate contract not signed. -Pain positive and follow-up visit/procedure is scheduled. -Patient's blood pressure measured [ 161/79 ] , and documented in the record ,and patient will follow up with the primary care. -Patient was not identified as an unhealthy alcohol user Time with Patient: Less than 30
== END ==
LOC: PNWHC3 10:12
PROVIDERS: ATTEND Student in an Organized Health Care Education/Training Program
DX: M47.812 Spondylosis without myelopathy or radiculopathy, cervical region (principal); M62.830 Muscle spasm of back; Z88.2 Allergy status to sulfonamides
CPT/HCPCS: 99211

== ENCOUNTER 2022-12-21 19:32 | Emergency (ER) | payer MEDICARE ==
[2022-12-21 19:39] VITALS: TEMP 97.9
[2022-12-21] MEDS ORDERED: HYDROmorphone 0.5 MG/0.5 ML SYRINGE IVP STA (19:50)
[2022-12-21] MEDS ORDERED: SODIUM CHLORIDE 0.9% 500 ML 500 ML IV STA (19:50)
--- NOTE | 2022-12-21 19:56 | ED ---
General Adult HPI - General Source: patient, RN notes reviewed, old records reviewed Mode of arrival: ambulatory Limitations: no limitations - History of Present Illness -: week(s) (2) Location: abdomen (Lower abdominal and rectal) Quality: other (cramping) Consistency: intermittent, now resolved, other Improves with: other (warm baths) Worsens with: other (bowel movements) <Kumar Loaiza - Last Filed: 12/22/22 00:02> <Mina Avendaño - Last Filed: 12/22/22 01:10> - General Chief complaint: GI Bleed Stated complaint: Radiation Proctitis Time Seen by Provider: 12/21/22 19:42 - History of Present Illness Initial comments: This is a nontoxic-appearing 67-year-old male that presents to the emergency room with complaints of lower abdominal cramping with rectal bleeding over the past 2 weeks. Patient states that he has had similar episodes of this on and off since 2015 after prostate cancer treated with radiation. Patient is scheduled to have a colonoscopy with Dr. Winter on January 18. States that over the past 2 weeks the pain has been progressively worse and he was unable to tolerate it today. He did try to take two warm baths today which did help the pain somewhat. Did have a small bowel movement today that was bloody however states that is normal for him since the surgery. Patient denies any nausea vomiting diarrhea or fevers. (Kumar Loaiza) - Related Data Home Medications Medication Instructions Recorded Confirmed Nitroglycerin Sl Tabs [Nitrostat] 0.4 mg PO Q5M PRN 01/15/15 12/21/22 Metoprolol Tartrate 25 mg PO BID 01/16/15 12/21/22 Spironolactone [Aldactone] 25 mg PO DAILY 01/16/15 12/21/22 Oxybutynin Chloride 10 mg PO DAILY 06/19/18 12/21/22 DULoxetine HCL [Cymbalta] 30 mg PO DAILY 06/26/18 12/21/22 Hydrocodone/Acetaminophen [[place] 1 tab PO QID PRN 07/05/19 12/21/22 10-325] Tamsulosin HCl [Flomax] 0.4 mg PO BID 07/05/19 12/21/22 lisinopriL 20 mg PO DAILY 07/05/19 12/21/22 DULoxetine HCL [Cymbalta] 60 mg PO DAILY 12/21/22 12/21/22 Sildenafil Citrate 100 mg PO DAILY PRN 12/21/22 12/21/22 Allergies Allergy/AdvReac Type Severity Reaction Status Date / Time Sulfa (Sulfonamide Allergy Rash/Hives Verified 12/21/22 20:45 Antibiotics) Review of Systems ROS Other: All systems not noted in ROS Statement are negative. <Kumar Loaiza - Last Filed: 12/22/22 00:02> ROS Other: All systems not noted in ROS Statement are negative. <Mina Avendaño - Last Filed: 12/22/22 01:10> ROS Statement: Those systems with pertinent positive or pertinent negative responses have been documented in the HPI. Past Medical History Past Medical History: Coronary Artery Disease (CAD), Cancer, Chest Pain / Angina, Fibromyalgia, Hyperlipidemia, Hypertension, Myocardial Infarction (PA), Musculoskeletal Disorder, Osteoarthritis (OA), Prostate Disorder, Rheumatoid Arthritis (RA) Additional Past Medical History / Comment(s): Prostate cancer with radiation in 2015, BPH, arthritis in multiple joints, chronic low back pain with bilateral sciatica, Last Myocardial Infarction Date:: 2012 History of Any Multi-Drug Resistant Organisms: None Reported Past Surgical History: Heart Catheterization, Heart Catheterization With Stent, Joint Replacement, Orthopedic Surgery Additional Past Surgical History / Comment(s): 2014 cardiac cath, 2012 PCI with stents to LAD, L knee arthroscopy, total R knee, L shoulder arthroscopy, L carpal tunnel release, colonoscopy. pain clinic procedures Past Anesthesia/Blood Transfusion Reactions: No Reported Reaction Additional Past Anesthesia/Blood Transfusion Reaction / Comment(s): no hx blood transfusion Date of Last Stent Placement:: 2012 Past Psychological History: No Psychological Hx Reported Smoking Status: Never smoker Past Alcohol Use History: Occasional Past Drug Use History: Marijuana - Past Family History Father Family Medical History: Cancer Additional Family Medical History / Comment(s): kidney/bone cancer- of at the age of 59yrs. Mother Family Medical History: Musculoskeletal Disorder, Neurologic Disorder Additional Family Medical History / Comment(s): Mother of Ghada Braeden's disease <Kumar Loaiza - Last Filed: 12/22/22 00:02> General Exam Limitations: no limitations General appearance: alert, in no apparent distress Head exam: Present: atraumatic Eye exam: Present: normal appearance. Absent: scleral icterus, conjunctival injection, periorbital swelling ENT exam: Present: mucous membranes moist Neck exam: Absent: meningismus Respiratory exam: Absent: respiratory distress, accessory muscle use Cardiovascular Exam: Present: regular rate GI/Abdominal exam: Present: soft, distended. Absent: tenderness, guarding, rebound, rigid Rectal exam: Present: hemorrhoids (not engorged, no fissures, no gross blood). Absent: mass, tenderness Extremities exam: Present: normal capillary refill. Absent: tenderness, pedal edema, calf tenderness Neurological exam: Present: alert, oriented X3 Psychiatric exam: Present: normal affect, normal mood Skin exam: Present: warm, dry. Absent: cyanosis, diaphoretic, pallor <Kumar Loaiza - Last Filed: 12/22/22 00:02> Course Vital Signs 12/21/22 12/21/22 12/21/22 19:36 21:25 21:46 Temperature 97.9 F Pulse Rate 89 74 80 Respiratory 16 18 16 Rate Blood Pressure 153/61 137/74 127/59 O2 Sat by Pulse 94 L 96 97 Oximetry 12/21/22 23:25 Temperature Pulse Rate 80 Respiratory 18 Rate Blood Pressure 115/76 O2 Sat by Pulse 96 Oximetry Medical Decision Making - Lab Data Result diagrams: 12/21/22 20:00 12/21/22 20:00 <Kumar Loaiza - Last Filed: 12/22/22 00:02> - Lab Data Result diagrams: 12/21/22 20:00 12/21/22 20:00 <Mina Avendaño - Last Filed: 12/22/22 01:10> - Medical Decision Making Patient presents with rectal bleeding, pain and pressure for 2 weeks, worse today. States has had ongoing problems with radiation proctitis since prostate radiation in 2016 and this feels similar. He received steroids for a bout in 2016 with resolution of his symptoms. He states has a colonoscopy scheduled January [address] Winter. Tried to get into his PCP but can't get an appointment until January. On physical exam there is no evidence of rectal fissure, no active bleeding. There is a small external hemorrhoid that is not engorged. Patient was given IV fluids and Dilaudid for pain with relief. Labs show a WBC count of 10.7, elevated from previous labs in 2019 and 2018 which show values of 7.4, 5.9, and 5.5. Hemoglobin and hematocrit are stable. Electrolytes show sodium of 132 corrected to 133 for glucose of 135. CT the abdomen and pelvis was performed and pending. Patient states he is feeling better and feels he can be discharged to follow up with his doctor. Case signed out to Dr. Avendaño for dispo. Patient has history of coronary artery disease, prostate cancer, fibromyalgia, hypertension, hyperlipidemia, osteoarthritis, rheumatoid arthritis, chronic back and neck pain (Josse,Kumar) Plan sign out was to follow up with pending imaging studies. Computed tomography scan of the abdomen and pelvis shows no acute processes. Patient evaluated at the bedside at 1:09 AM. Patient's well-appearing. His benign abdomen. Discussed with patient that steroids may make his condition worse. He hasn't had any significant bleeding while in the emergency room. Disposition options were discussed. He is agreeable to discharge. He has a colonoscopy scheduled in the near future with general surgery. Return precautions discussed. Patient be discharged. (Mina Avendaño) - Lab Data Lab Results 12/21/22 12/21/22 12/21/22 Range/Units 20:00 20:00 20:00 WBC 10.7 H (3.8-10.6) k/uL RBC 4.50 (4.30-5.90) m/uL Hgb 14.2 (13.0-17.5) gm/dL Hct 42.1 (39.0-53.0) % MCV 93.6 (80.0-100.0) fL MCH 31.6 (25.0-35.0) pg MCHC 33.8 (31.0-37.0) g/dL RDW 12.9 (11.5-15.5) % Plt Count 276 (150-450) k/uL MPV 7.1 Neutrophils % 80 % Lymphocytes % 12 % Monocytes % 5 % Eosinophils % 1 % Basophils % 0 % Neutrophils # 8.5 H (1.3-7.7) k/uL Lymphocytes # 1.3 (1.0-4.8) k/uL Monocytes # 0.5 (0-1.0) k/uL Eosinophils # 0.1 (0-0.7) k/uL Basophils # 0.0 (0-0.2) k/uL PT 9.8 (9.0-12.0) sec INR 0.9 (<1.2) APTT 22.4 (22.0-30.0) sec Sodium 132 L (137-145) mmol/L Potassium 4.5 (3.5-5.1) mmol/L Chloride 100 (98-107) mmol/L Carbon Dioxide 24 (22-30) mmol/L Anion Gap 8 mmol/L BUN 25 H (9-20) mg/dL Creatinine 1.07 (0.66-1.25) mg/dL Est GFR (CKD-EPI)AfAm 85 (>60 ml/min/1.73 sqM) Est GFR (CKD-EPI)NonAf 73 (>60 ml/min/1.73 sqM) Glucose 135 H (74-99) mg/dL Plasma Lactic Acid Paul (0.7-2.0) mmol/L Calcium 8.9 (8.4-10.2) mg/dL Magnesium 2.0 (1.6-2.3) mg/dL Total Bilirubin 0.4 (0.2-1.3) mg/dL AST 25 (17-59) U/L ALT 36 (4-49) U/L Alkaline Phosphatase 56 (38-126) U/L Total Protein 6.7 (6.3-8.2) g/dL Albumin 3.8 (3.5-5.0) g/dL 12/21/22 Range/Units 20:00 WBC (3.8-10.6) k/uL RBC (4.30-5.90) m/uL Hgb (13.0-17.5) gm/dL Hct (39.0-53.0) % MCV (80.0-100.0) fL MCH (25.0-35.0) pg MCHC (31.0-37.0) g/dL RDW (11.5-15.5) % Plt Count (150-450) k/uL MPV Neutrophils % % Lymphocytes % % Monocytes % % Eosinophils % % Basophils % % Neutrophils # (1.3-7.7) k/uL Lymphocytes # (1.0-4.8) k/uL Monocytes # (0-1.0) k/uL Eosinophils # (0-0.7) k/uL Basophils # (0-0.2) k/uL PT (9.0-12.0) sec INR (<1.2) APTT (22.0-30.0) sec Sodium (137-145) mmol/L Potassium (3.5-5.1) mmol/L Chloride (98-107) mmol/L Carbon Dioxide (22-30) mmol/L Anion Gap mmol/L BUN (9-20) mg/dL Creatinine (0.66-1.25) mg/dL Est GFR (CKD-EPI)AfAm (>60 ml/min/1.73 sqM) Est GFR (CKD-EPI)NonAf (>60 ml/min/1.73 sqM) Glucose (74-99) mg/dL Plasma Lactic Acid Paul 0.8 (0.7-2.0) mmol/L Calcium (8.4-10.2) mg/dL Magnesium (1.6-2.3) mg/dL Total Bilirubin (0.2-1.3) mg/dL AST (17-59) U/L ALT (4-49) U/L Alkaline Phosphatase (38-126) U/L Total Protein (6.3-8.2) g/dL Albumin (3.5-5.0) g/dL Disposition <Kumar Loaiza - Last Filed: 12/22/22 00:02> Is patient prescribed a controlled substance at d/c from ED?: No Time of Disposition: 01:10 <Mina Avendaño - Last Filed: 12/22/22 01:10> Clinical Impression: Abdominal pain Disposition: HOME SELF-CARE Condition: Good Instructions (If sedation given, give patient instructions): Gastrointestinal Bleeding (ED) Referrals: Chase Castro MD [Primary Care Provider] - 1-2 days Taisha Hanna MD [STAFF PHYSICIAN] - 1-2 days
[2022-12-21 20:28] LABS: Basophils % (A) 0 %; Eosinophils # (A) 0.1 k/uL (0-0.7); Eosinophils % (A) 1 %; HCT 42.1 % (39.0-53.0); HGB 14.2 gm/dL (13.0-17.5); Lymphocytes # (A) 1.3 k/uL (1.0-4.8); Lymphocytes % (A) 12 %; MCH 31.6 pg (25.0-35.0); MCHC 33.8 g/dL (31.0-37.0); MCV 93.6 fL (80.0-100.0); Mean Platelet Volume 7.1; Monocytes # (A) 0.5 k/uL (0-1.0); Monocytes % (A) 5 %; Neutrophils # (A) 8.5 k/uL (1.3-7.7); Neutrophils % (A) 80 %; Platelet Count 276 k/uL (150-450); RDW 12.9 % (11.5-15.5); WBC 10.7 k/uL (3.8-10.6)
[2022-12-21 20:42] LABS: INR 0.9 (<1.2); Partial Thromboplastin Time 22.4 sec (22.0-30.0); Prothrombin Time 9.8 sec (9.0-12.0)
[2022-12-21 21:05] LABS: Albumin 3.8 g/dL (3.5-5.0); Calcium 8.9 mg/dL (8.4-10.2); Potassium 4.5 mmol/L (3.5-5.1); Total Bilirubin 0.4 mg/dL (0.2-1.3); Total Protein 6.7 g/dL (6.3-8.2)
--- NOTE | 2022-12-22 00:54 | CT ---
EXAM: CT Abdomen and Pelvis With Intravenous Contrast CLINICAL HISTORY: ITS.REASON CT Reason: pain TECHNIQUE: Axial computed tomography images of the abdomen and pelvis with intravenous contrast. CTDI is 66.97 mGy and DLP is 3368.4 mGy-cm. This CT exam was performed using one or more of the following dose reduction techniques: automated exposure control, adjustment of the mA and/or kV according to patient size, and/or use of iterative reconstruction technique. COMPARISON: No relevant prior studies available. FINDINGS: Lung bases: Unremarkable. No mass. No consolidation. ABDOMEN: Liver: Hepatic steatosis. Gallbladder and bile ducts: Contracted gallbladder. No calcified stones. No ductal dilation. Pancreas: Atrophy of the pancreas. No ductal dilation. Spleen: Unremarkable. No splenomegaly. Adrenals: Unremarkable. No mass. Kidneys and ureters: Unremarkable. No solid mass. No hydronephrosis. Stomach and bowel: Diverticulosis, without acute diverticulitis. No small bowel obstruction. No free intraperitoneal air. PELVIS: Appendix: No findings to suggest acute appendicitis. Bladder: Decompressed urinary bladder. Reproductive: Unremarkable as visualized. ABDOMEN and PELVIS: Intraperitoneal space: Unremarkable. No free air. No significant fluid collection. Bones/joints: Degenerative changes of the spine. Grade 1-2 anterolisthesis of L5 on S1 measures 14 mm, with bilateral pars defects at L5. No acute fracture. No dislocation. Soft tissues: Unremarkable. Vasculature: Atherosclerotic changes of the aorta. No abdominal aortic aneurysm. Lymph nodes: Unremarkable. No enlarged lymph nodes. IMPRESSION: 1. Diverticulosis, without acute diverticulitis. No small bowel obstruction. No free intraperitoneal air. 2. Hepatic steatosis. 3. Grade 1-2 anterolisthesis of L5 on S1 measures 14 mm, with bilateral pars defects at L5.
[2022-12-22] MEDS ORDERED: DIPHENOX-ATROP STARTER PACK 8 TAB BTL PO STA (01:09)
[2022-12-22 01:27] VITALS: BP 115/74; PULSE 78; RESP 16
== END 2022-12-22 01:26 | disposition home or self-care (01) ==
LOC: EC 19:32
DX: R10.9 Unspecified abdominal pain (principal); I25.10 Atherosclerotic heart disease of native coronary artery without angina pectoris; I10 Essential (primary) hypertension; I25.2 Old myocardial infarction; M06.9 Rheumatoid arthritis, unspecified; F12.90 Cannabis use, unspecified, uncomplicated; Z88.2 Allergy status to sulfonamides; Z79.899 Other long term (current) drug therapy
CPT/HCPCS: 36415; 80053; 83605; 83735; 85025; 85610; 85730; 74177; 99285; 96374; 96361 ×5; J1170; Q9967

== ENCOUNTER → 2023-04-06 | Outpatient (CLI) | payer MEDICARE, BC ==
[2023-04-06 13:02] LABS: INR 0.9 (<1.2); Partial Thromboplastin Time 23.4 sec (22.0-30.0); Prothrombin Time 10.1 sec (9.0-12.0)
--- NOTE | 2023-04-06 13:02 | XR ---
EXAMINATION TYPE: XR chest 2V DATE OF EXAM: 04/06/2023 12:51 PM COMPARISON: Chest radiographs from 07/05/2019 TECHNIQUE: XR chest 2V Frontal and lateral views of the chest. CLINICAL INDICATION:Male, 68 years old with history of Z01.818; FINDINGS: Lungs/Pleura: There is no evidence of pleural effusion, focal consolidation, or pneumothorax. Pulmonary vascularity: Unremarkable. Heart/mediastinum: Cardiomediastinal silhouette is enlarged and stable. Musculoskeletal: No acute osseous pathology. IMPRESSION: Low lung volumes, No acute cardiopulmonary disease/process.
[2023-04-06 15:39] LABS: Basophils # (A) 0.06 X 10*3/uL (0.00-0.10); Eosinophils # (A) 0.11 X 10*3/uL (0.04-0.35); Eosinophils % (A) 1.8 %; HCT 47.4 % (39.6-50.0); Lymphocytes # (A) 1.09 X 10*3/uL (0.90-5.00); Lymphocytes % (A) 17.6 %; MCH 33.4 pg (27.0-32.0); MCHC 33.8 d/dL (32.0-37.0); Mean Platelet Volume 9.4 FL (9.5-12.2); Monocytes # (A) 0.64 X 10*3/uL (0.20-1.00); Monocytes % (A) 10.3 %; NRBC Per 100 WBC 0 X 10*3/uL (0.00-0.01); Neutrophils # (A) 4.28 X 10*3/uL (1.80-7.70); Neutrophils % (A) 69.1 %; Platelet Count 245 X 10*3/uL (140-440); RBC 4.79 X 10*6/uL (4.40-5.60); WBC 6.19 X 10*3/uL (4.50-10.00)
[2023-04-06 16:14] LABS: BUN/Creat Ratio 14.55 Ratio (12.00-20.00); Calcium 9.5 mg/dL (8.7-10.3); Carbon Dioxide 27.7 mmol/L (21.6-31.8); Chloride 96 mmol/L (96-109); Glucose 112 mg/dL (70-110); Sodium 135 mmol/L (135-145)
[2023-04-06 17:33] LABS: Appearance,Urine Clear (Clear); Bilirubin,Urine Negative (Negative); Blood,Urine Negative (Negative); Color,Urine Yellow (Yellow); Ketones,Urine Negative (Negative); Nitrite,Urine Negative (Negative); PH, Urine 6.5; Urobilinogen,Urine 0.2 E.U./DL
== END | disposition home or self-care (01) ==
LOC: LABPAT 11:48
PROVIDERS: ATTEND Orthopaedic Surgery Orthopaedic Surgery of the Spine
DX: Z01.812 Encounter for preprocedural laboratory examination (principal); M47.16 Other spondylosis with myelopathy, lumbar region
CPT/HCPCS: 36415; 71046; 80048; 81003; 85025; 85610; 85730; 87070; 93005

== ENCOUNTER 2023-04-12 09:41 | Day surgery (SDC) | payer MEDICARE, BC ==
[~2023-04-12 09:41] MED LIST changes: +DEXAMETHASONE SOD PHOSPHATE 4 MG/ML 1 ML VIAL IV ONE; -LACTATED RINGERS 1,000 ML IV SCH; +ONDANSETRON 4 MG/2 ML VIAL IVP ONE; +ceFAZolin 1,000 MG in SODIUM CHLORIDE 0.9% IRRIGATIO 1,000 ML IRRIGATION PRN; +ceFAZolin 3 GM in SODIUM CHLORIDE 0.9% 100 ML IVPB PRN
[2023-04-12] MEDS ORDERED: LACTATED RINGERS 1,000 ML IV ONE ×4 (10:20→16:22)
[2023-04-12] MEDS ORDERED: FUROSEMIDE 10 MG/ML 2 ML VIAL ONE (12:10)
[2023-04-12] MEDS ORDERED: NEOSTIGMINE 1 MG/ML 10 ML VIAL ONE (12:10)
[2023-04-12] MEDS ORDERED: WATER FOR INJECTION, STERILE 10 ML VIAL IV ONE (12:10)
[2023-04-12] MEDS ORDERED: ePHEDrine 50 MG/ML 1 ML VIAL ONE (12:10)
[2023-04-12] MEDS ORDERED: GLYCOPYRROLATE 0.2 MG/ML 2 ML VIAL ONE (12:10)
[2023-04-12] MEDS ORDERED: SUCCINYLCHOLINE CHLORIDE 200 MG/10 ML VIAL IV ONE (12:10)
[2023-04-12] MEDS ORDERED: HYDROmorphone (PF) 1 MG/ML ONE (12:10)
[2023-04-12] MEDS ORDERED: KETAMINE 10 MG/ML 20 ML VIAL ONE (12:10)
[2023-04-12] MEDS ORDERED: PROPOFOL 10 MG/ML 20 ML VIAL IV ONE (12:10)
[2023-04-12] MEDS ORDERED: ALBUMIN HUMAN 5% (12.5gm) 250 ML BOTTLE IVPB ONE (12:10)
[2023-04-12] MEDS ORDERED: fentaNYL (PF) 50 MCG/ML 2 ML AMP ONE (12:10)
[2023-04-12] MEDS ORDERED: PHENYLEPHRINE-0.9% NACL SYG 1,000 MCG/10 ML SYRINGE ONE (12:10)
[2023-04-12] MEDS ORDERED: ROCURONIUM 10 MG/ML (5 ML VIAL) IV ONE (12:10)
[2023-04-12] MEDS ORDERED: TRANEXAMIC 1,000 MG/100ML-NACL PREMIX BAG ONE (12:10)
[2023-04-12] MEDS ORDERED: LIDOCAINE 2% INJ 20 MG/ML (2 ML VIAL) ONE (12:10)
[2023-04-12] MEDS ORDERED: MIDAZOLAM 2 MG/2 ML VIAL ONE (12:10)
[2023-04-12] MEDS ORDERED: THROMBIN (BOVINE) 5,000 UNIT VIAL TOPICAL ONE (12:18)
[2023-04-12] MEDS ORDERED: LIDOCAINE 0.5%-EPI 1:200,000 50 ML VIAL SQ ONE (12:18)
[2023-04-12] MEDS ORDERED: GELATIN SPONGE,ABSORB (LARGE) 1 EACH SPONGE TOPICAL ONE (12:18)
[2023-04-12] MEDS ORDERED: TRANEXAMIC 1,000 MG/100ML-NACL 1,000 MG in SALINE 1 100ML.BAG IVPB STA (13:16)
[2023-04-12] MEDS ORDERED: CYCLOBENZAPRINE 10 MG TAB PO PRN (16:55)
[2023-04-12] MEDS ORDERED: SENNOSIDES-DOCUSATE SODIUM 1 EACH TAB PO PRN (16:55)
[2023-04-12] MEDS ORDERED: BENZOCAINE/MENTHOL LOZENG 1 EACH LOZENGE MUCOUS MEM PRN (16:55)
[2023-04-12] MEDS ORDERED: MAGNESIUM HYDROXIDE 2,400 MG/30 ML CUP PO PRN (16:55)
[2023-04-12] MEDS ORDERED: NITROGLYCERIN SL TABS 0.4 MG TAB SUBLINGUAL PRN (16:58)
[2023-04-12] MEDS ORDERED: NON FORMULARY DRUG (Sildenafil Citrate [Sildenafil Citrate] 100 MG Tablet) PO PRN (16:58)
[2023-04-12] MEDS ORDERED: CYCLOBENZAPRINE 5 MG TAB PO PRN (16:58)
--- NOTE | 2023-04-12 17:08 | P.OP ---
Date of Procedure: 04/12/23 Preoperative Diagnosis: Degenerative scoliosis, grade 3 spondylolisthesis L5-S1, retrolisthesis L4 5 severe spinal stenosis L3 4 L4 5 L5-S1, lower cervical radiculopathy, lower extremity weakness, low back pain, degenerative disc disease, facet arthrosis, spondylolysis, Postoperative Diagnosis: Same Anesthesia: GETA Pathology: other (Epidural mass, presumed facet cyst from L4 5 centimeters pathology) Condition: stable Disposition: PACU Description of Procedure: BRIEF OPERATIVE NOTE Preoperative Diagnosis:Degenerative scoliosis, grade 3 spondylolisthesis L5-S1, retrolisthesis L4 5 severe spinal stenosis L3 4 L4 5 L5-S1, lower cervical radiculopathy, lower extremity weakness, low back pain, degenerative disc disease, facet arthrosis, spondylolysis, Postoperative Diagnosis:Degenerative scoliosis, grade 3 spondylolisthesis L5-S1, retrolisthesis L4 5 severe spinal stenosis L3 4 L4 5 L5-S1, lower cervical radiculopathy, lower extremity weakness, low back pain, degenerative disc disease, facet arthrosis, spondylolysis, Procedure: Laminectomy and decompression with facetectomy and foraminotomy bilaterally L3 4 L4 5 L5-S1 Open Posterior lateral decompression and fusion L3 4 L4 5 L5- S1 CT-guided placement of pedicle screws with Bookya navigation system intraoperatively Local autogenous bone grafting Use of Cell Saver Use of bone graft extenders Harvesting of bone marrow aspirate of the pedicle of L3 on the right Use of neuro monitoring Surgeon: Dr. Bingham Packager Head: Ray Crowley is present throughout the entire the case persistence during positioning, dissection, exposure, visualization, and all crucial elements of the case as well as closure. Anesthesia: General anesthesia per Dr. Hall Estimated blood loss: Approximately 750 mL with 400 given back through Cell Saver Complications: None apparent Components implanted: K2M [place] no invasive pedicle screws measuring 6.5 mm and 50-55 mm in length with 2 rods and bone graft strips to supplemental local autogenous bone graft and bone marrow aspirate Disposition: To recovery room in good stable condition. OPERATIVE INDICATIONS The patient has had long-standing issues in their lower back and lower extremities. He is having worsening symptoms at his back and his bilateral lower extremities worse on the left than the right. He is found have severe changes his lumbar spine with spondylolisthesis degenerative scoliosis severe disc degeneration and severe spinal stenosis at multiple levels in his lumbar spine. This correlated well with his low back and lower extremity symptoms. The patient has been through conservative treatment. We discussed various treatment options including surgery, and the patient wishes to proceed with surgery We discussed the risk, patient's alternatives and benefits of surgery including but not limited to, risk of bleeding risk of infection, risk of need for further surgery, risk of decreased, loss of motion, muscle function, malunion nonunion, hardware failure, nerve damage, paralysis, heart attack, blindness and . After discussing all this risks, patient alternatives and benefits patient elected proceed with surgical intervention find signed informed consent. OPERATIVE SUMMARY After discussing all the risks, patient alternatives and benefits at length, the patient elected to proceed with surgical intervention, signed informed consent, and presented for their procedure. The patient was seen and examined in the preoperative holding area and the surgical site was marked. The patient was given antibiotics and brought to the operating room. The patient was sedated and intubated by anesthesia in standard fashion. The patient was positioned on to the operating room table in a prone position on the appropriate frame which was well-padded and well molded. We were careful to pad any bony prominences and pressure points. We were careful to maintain the patient's cervical spine and good neutral alignment and position throughout. The patient was prepped and draped in a normal standard fashion. An appropriate timeout and keystone protocol performed. We were able to proceed with the surgery. The local wound area was infiltrated with local anesthetic. An incision was made at the midline longitudinally over the appropriate levels. Dissection was taken down subcutaneously to the level of the fascia which was split midline from L3 to S1. Dissection was taken over the lamina bilaterally over the facet joints and to the transverse processes. Intraoperative x-ray was taken which showed a marker at the appropriate level. With the appropriate level positively confirmed, we were able to proceed with placement of the pedicle holes and screws. The patient had all their twitches back. The wound was copiously irrigated and suctioned dry as had been done periodically throughout the case. Screw holes were established similarly at each level. We prepared the level and I was able place a bony secured referencing navigation guide at the spinous process of L4. We then performed a navigation guidance computed tomography scan with the Bookya navigation system for appropriate referencing. After this I was able to establish screw placement at L3 L4 L5 and S1 bilaterally with visual and CT guidance navigation. I was able to use a Jamshidi all with navigation and ligated appropriately at the starting point and into the pedicle from L3 to S1 bilaterally. I then placed a wire into the area this was done under guidance. We then able to view the wire position with C-arm fluoroscopy intraoperatively. With establishing good alignment good position we then placed screws at each level under fluoroscopic guidance. The wires were able removed and the screws were checked and found to have no stimulation at at least 16 mA and opted over 20 mA each. We confirmed the position with fluorosco pic navigation as well and each screw alignment good position L3 L4 L5 and S1 bilaterally. . The transverse process or sacral ala was decorticated with a high-speed bur. I was able to use these holes to place the appropriate size screw and good alignment and good position with good bony purchase. When the screws were inserted there were stimulated, and found to have no stimulation at at least 16 mA. I was able to turn my attention to the decompression. The patient had severe stenosis at each level. He had an Musa fragment at L5 which was removed in its entirety. This gave excellent central decompression at the area. There is severe bilateral foraminal stenosis at each level as well. Upon central and bilateral foraminal decompression L3 4 L4 5 and L5-S1 bilaterally. No was made also of a facet cyst at L4 5 on the left. I was able to mobilize the cyst from the dura and remove significant portions of the cyst. This was passed off to pathology. There is no evidence of any dural tear or leak and this provided further decompression. decompression was performed with a combination of rongeurs, curettes, Kerrison rongeurs and a ball-tip feeler. All of the bone that was removed was stripped and morcellized for use as autogenous bone graft later in the case. I was able to obtain good central decompression as well as wide bilateral foraminal decompression. There is no evidence of dural tear or leak. Good hemostasis was maintained. The wound was irrigated and suctioned dry. With the hardware intact, intraoperative x-ray was again taken which showed good alignment and position of the hardware at the appropriate levels from L3 to S1. We were then able to measure, contour and place the rods and appropriate hardware bilaterally. I was able to place capcrews, tighten them down, and torque them off appropriately. With this intact I was able to place the local autogenous bone graft with additional bone graft enhancer as necessary into the posterior lateral gutters bilaterally. With the bone graft intact, a stable construct, and good decompression at the appropriate levels, we were able to proceed with closure. Good hemostasis was maintained. There is no evidence of dural tear or leak. The fascia was closed for a watertight closure. The subcutaneous tissue was closed over a superficial drain. The subcuticular tissue was closed with absorbable suture. The wound was cleaned and dried and dressed with the appropriate dressing. The drapes were broken down. The patient was gently rolled back onto their hospital bed being careful to maintain their cervical spine and good neutral alignment and position. They were woken up by anesthesia, extubated, and brought to the recovery room in good stable condition. The patient will be admitted to the hospital for appropriate postoperative care, medical management and monitoring. We will continue to follow them closely about the postoperative course.
[2023-04-12] MEDS: HYDROmorphone 0.5 MG/0.5 ML SYRINGE IVP PRN ×3 (17:32→17:55)
[2023-04-12] MEDS: LACTATED RINGERS 1,000 ML IV SCH (19:40)
[2023-04-12] MEDS: HYDROcodone/APAP 10-325MG 1 EACH TAB PO PRN ×2 (19:43→23:08)
[2023-04-12] MEDS: METOPROLOL TARTRATE 25 MG TAB PO SCH (20:33)
[2023-04-12] MEDS: TAMSULOSIN 0.4 MG CAP.ER.24H PO SCH (20:33)
[2023-04-12] MEDS: GABAPENTIN 100 MG CAP PO SCH (20:33)
[2023-04-12] MEDS: ceFAZolin 3 GM in SODIUM CHLORIDE 0.9% 100 ML IVPB SCH (20:34)
[2023-04-12] MEDS: SODIUM CHLORIDE 0.9% 1,000 ML IV SCH (20:35)
[2023-04-12] MEDS: HYDROmorphone 1 MG/ML 1 ML SYRINGE IVP PRN (21:55)
--- NOTE | 2023-04-12 22:44 | XR ---
Fluoroscopy INDICATION: Pain FINDINGS: Fluoroscopy time: 50 seconds. Total dose area product (DAP) in uGy*m?, mGy*cm? (or similar): 9728.92 Images obtained: 8. IMPRESSIONS: 1. Documentation of fluoroscopy.
[2023-04-13] MEDS: HYDROmorphone 1 MG/ML 1 ML SYRINGE IVP PRN ×6 (01:31→21:57)
[2023-04-13] MEDS: ceFAZolin 3 GM in SODIUM CHLORIDE 0.9% 100 ML IVPB SCH ×3 (05:26→22:34)
[2023-04-13] MEDS: HYDROcodone/APAP 10-325MG 1 EACH TAB PO PRN ×2 (06:08→14:33)
[2023-04-13] MEDS ORDERED: lisinopriL 20 MG TAB PO SCH (09:00)
[2023-04-13] MEDS: SPIRONOLACTONE 25 MG TAB PO SCH (09:23)
[2023-04-13] MEDS: TAMSULOSIN 0.4 MG CAP.ER.24H PO SCH ×2 (09:23→21:54)
[2023-04-13] MEDS: SENNOSIDES-DOCUSATE SODIUM 1 EACH TAB PO SCH (09:23)
[2023-04-13] MEDS: DULoxetine HCL 60 MG CAPSULE.DR PO SCH (09:23)
[2023-04-13] MEDS: GABAPENTIN 100 MG CAP PO SCH ×2 (09:23→21:53)
[2023-04-13] MEDS: ATORVASTATIN 80 MG TAB PO SCH (09:23)
[2023-04-13] MEDS: METOPROLOL TARTRATE 25 MG TAB PO SCH ×2 (09:23→21:54)
[2023-04-13] MEDS: ASPIRIN 81 MG PO SCH (09:23)
[2023-04-13] MEDS: LACTATED RINGERS 1,000 ML IV SCH (09:29)
--- NOTE | 2023-04-13 10:44 | P.PN ---
Progress Note - Text Progress Note Date: 04/13/23 Postoperative day #1 Patient is seen and examined today at bedside. He is up out of bed and into a chair. His Collins has been discontinued and he was able to void on his own. The patient has some pain around the surgical site as expected. Pain is being controlled with medication, they still struggling with the pain. Physical Exam Afebrile with stable vital signs Abdomen is soft nontender. Chest has good excursion deep and space expiration The incision site is clean dry and intact. No erythema there is no purulence. The dressing is intact. The drain is intact. Extremities have not had neurologic change from prior to surgery. He has sustained dorsal flexion plantar flexion and EHL intact his bilateral lower extremities Calves and thighs were soft nontender without evidence of DVT. Assessment/Plan Postoperative day #1 status post open decompression and fusion L3 4 L4 5 L5-S1 for severe stenosis with spondylolisthesis lower shoulder radiculopathy We're also able to remove a facet cyst causing further compression of his neural structures Patient is progressing as expected from the surgery. He had a large surgery with significant blood loss but his hemoglobin appears stable for now from his postoperative anemia. He is making progress in terms of his mobility already. And he is voiding freely. He does have history of troubles with his prostate and history of radiation at the area and we will have to monitor this closely. We will continue to increase the patient's mobilization with therapy. He has some troubles with controlling the pain is far. He may have some benefit with taking is muscle relaxants and we'll increase the frequency slightly of the Dilaudid. We will continue pain control with oral or IV medications. We'll continue to follow patient closely.
[2023-04-13] MEDS: PANTOPRAZOLE 40 MG/10 ML VIAL IVP SCH (10:53)
[2023-04-13] MEDS: OXYBUTYNIN 15 MG TAB.ER.24 PO SCH (10:53)
[2023-04-13] MEDS: SODIUM CHLORIDE 0.9% 1,000 ML IV SCH ×2 (10:55→23:35)
[2023-04-13] MEDS: ONDANSETRON 4 MG/2 ML VIAL IVP PRN (12:56)
[2023-04-13] MEDS ORDERED: DEXTROSE 50% SYRINGE 50 ML IVP PRN ×2 (13:11)
--- NOTE | 2023-04-13 13:15 | P.CONS ---
History of Present Illness - Reason for Consult Consult date: 04/13/23 Medical management BPH, hypertension, Requesting physician: Mario Bingham - Chief Complaint Chronic back pain - History of Present Illness This is 68-year-old gentleman with past medical history significant for morbid obesity, BMI 42, chronic back pain and sciatica, rheumatoid arthritis, BPH, prostate cancer with radiation treatment, CAD, hypertension, NM, stent placement , occasional marijuana use and multiple other medical issues, status post open decompression and fusion L3 4 L4 5 L5-S1 for severe stenosis with spondylolisthesis lower shoulder radiculopathy, removal of a facet cyst causing further compression of his neural structures. Tolerated procedure well. Denies chest pain, palpitations or shortness of breath. Positive pain and is about to receive his IV push Dilaudid. Yesterday sent up in chair and stood by the bedside. IV fluid hydration. Complains of bladder pressure secondary to Collins catheter. Maintained on Flomax. Oxygen recently weaned off currently maintaining O2 sats in the low 90s on room air. Afebrile. Review of Systems Constitutional: Denied any fever or chills. Cardio vascular: denied any chest pain, palpitations Gastrointestinal denied any nausea vomiting Pulmonary: Denied any shortness of breath cough Neurologic denied any new focal deficits ROS Statement: Those systems with pertinent positive or pertinent negative responses have been documented in the HPI. ROS Other: All systems not noted in ROS Statement are negative. Past Medical History Past Medical History: Coronary Artery Disease (CAD), Cancer, Chest Pain / Angina, Fibromyalgia, Hyperlipidemia, Hypertension, Myocardial Infarction (NM), Musculoskeletal Disorder, Osteoarthritis (OA), Prostate Disorder Additional Past Medical History / Comment(s): Prostate cancer with radiation in 2015, BPH, arthritis in multiple joints, chronic low back pain with bilateral sciatica, Last Myocardial Infarction Date:: 2012 History of Any Multi-Drug Resistant Organisms: None Reported Past Surgical History: Heart Catheterization, Heart Catheterization With Stent, Joint Replacement, Orthopedic Surgery Additional Past Surgical History / Comment(s): 2014 cardiac cath, 2012 PCI with stents to LAD, L knee arthroscopy, total R knee, L shoulder arthroscopy, L carpal tunnel release, colonoscopy. pain clinic procedures Past Anesthesia/Blood Transfusion Reactions: No Reported Reaction Additional Past Anesthesia/Blood Transfusion Reaction / Comm: no hx blood transfusion Date of Last Stent Placement:: 2012 Past Psychological History: No Psychological Hx Reported Smoking Status: Never smoker Past Alcohol Use History: Occasional Past Drug Use History: Marijuana Additional Drug Use History / Comment(s): DAILY USE - Past Family History Father Family Medical History: Cancer Additional Family Medical History / Comment(s): kidney/bone cancer- of at the age of 59yrs. Mother Family Medical History: Musculoskeletal Disorder, Neurologic Disorder Additional Family Medical History / Comment(s): Mother of Ghada Braeden's disease Medications and Allergies Home Medications Medication Instructions Recorded Confirmed Type Nitroglycerin Sl Tabs [Nitrostat] 0.4 mg PO Q5M PRN 01/15/15 04/12/23 History Metoprolol Tartrate 25 mg PO BID 01/16/15 04/12/23 History Spironolactone [Aldactone] 25 mg PO DAILY 01/16/15 04/12/23 History Tamsulosin HCl [Flomax] 0.4 mg PO BID 07/05/19 04/12/23 History lisinopriL 20 mg PO DAILY 07/05/19 04/12/23 History DULoxetine HCL [Cymbalta] 60 mg PO DAILY 12/21/22 04/12/23 History Sildenafil Citrate 100 mg PO DAILY PRN 12/21/22 04/12/23 History Aspirin [Adult Low Dose Aspirin EC] 81 mg PO DAILY 04/04/23 04/12/23 History Atorvastatin [Lipitor] 80 mg PO DAILY 04/04/23 04/12/23 History Cyclobenzaprine [Flexeril] 5 mg PO BID PRN 04/04/23 04/12/23 History Gabapentin [Neurontin] 200 mg PO BID 04/04/23 04/12/23 History HYDROcodone/APAP 5-325MG [[place] 1 tab PO Q6HR PRN 04/04/23 04/12/23 History 5-325] Oxybutynin ER [Ditropan XL] 15 mg PO DAILY 04/04/23 04/12/23 History Allergies Allergy/AdvReac Type Severity Reaction Status Date / Time Sulfa (Sulfonamide Allergy Rash/Hives Verified 04/12/23 10:24 Antibiotics) Physical Exam Vitals: Vital Signs Temp Pulse Pulse Pulse Resp BP BP 04/13/23 07:02 97.4 F L 71 18 100/67 04/13/23 02:00 97.9 F 72 19 97/58 04/12/23 21:20 89 143/78 04/12/23 21:05 83 115/73 04/12/23 20:50 79 138/77 04/12/23 20:35 86 116/75 04/12/23 20:20 88 134/81 04/12/23 20:05 90 127/77 04/12/23 19:50 94 132/78 04/12/23 19:35 93 122/77 04/12/23 19:20 85 116/74 04/12/23 18:24 77 16 122/57 04/12/23 18:09 81 137/57 04/12/23 17:54 79 16 125/59 04/12/23 17:39 80 18 125/59 04/12/23 17:24 85 18 125/59 04/12/23 17:09 97.8 F 83 16 133/61 04/12/23 10:20 97.8 F 72 15 170/85 Pulse Ox 04/13/23 07:02 91 L 04/13/23 02:00 93 L 04/12/23 21:20 96 04/12/23 21:05 95 04/12/23 20:50 93 L 04/12/23 20:35 96 04/12/23 20:20 97 04/12/23 20:05 92 L 04/12/23 19:50 96 04/12/23 19:35 91 L 04/12/23 19:20 95 04/12/23 18:24 95 04/12/23 18:09 95 04/12/23 17:54 95 04/12/23 17:39 97 04/12/23 17:24 98 04/12/23 17:09 93 L 04/12/23 10:20 94 L Intake and Output 04/12/23 04/13/23 04/13/23 22:59 06:59 14:59 Intake Total 200 Output Total 1010 1125 Balance -810 -1125 Intake: IV 200 Output: Drainage 300 Lower Back 300 Urine 260 825 Estimated Blood Loss 750 Other: Voiding Method Indwelling Catheter Weight 130 kg PHYSICAL EXAM: VITAL SIGNS: [As above] GENERAL: Sitting up in bed, no acute distress HEENT: Normocephalic, Conjunctivae normal. eyes normal. NECK: Supple, No JVD. No thyroid enlargement. No LNs CARDIOVASCULAR: S1, S2 regular.. No murmur RESPIRATION: Breath sounds diminished in the bases. No rhonchi or crackles. No bronchial breathing. ABDOMEN: Soft, nontender . No guarding. no masses palpable. Positive. Bowel sounds heard. LEGS: No edema. no swelling, no calf tenderness, positive DP pulses PSYCHIATRY: Alert and oriented X3, mood and affect normal. NERVOUS SYSTEM: Cranial N 2-12 grossly normal. Moves all 4 limbs.No focal deficits. Strength and sensation grossly intact. Skin: Warm and dry, no rash. Dressing intact, Hemovac drain present. Assessment and Plan Assessment: S/P open decompression and fusion L3 4 L4 5 L5-S1 for severe stenosis with spondylolisthesis lower shoulder radiculopathy, removal of a facet cyst causing further compression of his neural structures. Acute hypoxic respiratory failure secondary to the above, resolved. Chronic low back pain CAD, history of NM, stent History of Prostate cancer with radiation tx BPH Osteoarthritis Rheumatoid arthritis Morbid obesity BMI 42 Plan: Continue on current medication regime ,monitoring and symptomatic treatment. Aggressive pulmonary toileting with incentive spirometer reinforced .Gentle IV fluid hydration. PPI ordered for GI prophylaxis. Pain management and DVT prophylaxis as per orthopedic spine. Collins catheter to be discontinued, continue on Flomax and monitor for spontaneous voiding. Lisinopril placed on hold, Close monitoring of blood pressures, soft this morning .PT CBC, BMP in a.m. hemoglobin A1c, sliding scale ordered for tight blood sugar control. The impression and plan of care has been dictated as directed. : I performed a history and examination of this patient, discussed the same with the dictator. I agree with the dictator's note ,documented as a scribe. Any additional findings or plans will be noted.
[2023-04-13 14:37] LABS: Basophils # (A) 0.02 X 10*3/uL (0.00-0.10); Basophils % (A) 0.2 %; Eosinophils # (A) 0.04 X 10*3/uL (0.04-0.35); Eosinophils % (A) 0.5 %; HCT 36.1 % (39.6-50.0); HGB 11.8 d/dL (13.0-17.0); Lymphocytes # (A) 1.05 X 10*3/uL (0.90-5.00); MCH 33.1 pg (27.0-32.0); MCHC 32.7 d/dL (32.0-37.0); MCV 101.1 FL (80.0-97.0); Mean Platelet Volume 9.7 FL (9.5-12.2); Monocytes # (A) 0.89 X 10*3/uL (0.20-1.00); NRBC Per 100 WBC 0 X 10*3/uL (0.00-0.01); Neutrophils # (A) 6.04 X 10*3/uL (1.80-7.70); Neutrophils % (A) 74.7 %; Platelet Count 186 X 10*3/uL (140-440); RBC 3.57 X 10*6/uL (4.40-5.60); RDW 13.1 % (11.5-14.5); WBC 8.09 X 10*3/uL (4.50-10.00)
[2023-04-13 16:55] LABS: Glucose,Whole Blood 184 mg/dL (70-110)
[2023-04-13] MEDS: INSULIN ASPART (NovoLOG) 100 UNIT/ML VIAL SQ SCH ×2 (18:00→21:54)
[2023-04-13 20:58] LABS: Glucose,Whole Blood 180 mg/dL (70-110)
[2023-04-14 00:53] LABS: BUN/Creat Ratio 14.27 Ratio (12.00-20.00); Blood Urea Nitrogen 15.7 mg/dL (9.0-27.0); Calcium 8.5 mg/dL (8.7-10.3); Carbon Dioxide 27.5 mmol/L (21.6-31.8); Chloride 100 mmol/L (96-109); Glucose 136 mg/dL (70-110); Potassium 4.2 mmol/L (3.5-5.5); Sodium 136 mmol/L (135-145)
[2023-04-14] MEDS: HYDROmorphone 1 MG/ML 1 ML SYRINGE IVP PRN ×6 (01:01→23:56)
[2023-04-14] MEDS: ceFAZolin 3 GM in SODIUM CHLORIDE 0.9% 100 ML IVPB SCH ×2 (04:29→12:22)
[2023-04-14 06:16] LABS: Glucose,Whole Blood 134 mg/dL (70-110)
[2023-04-14] MEDS: INSULIN ASPART (NovoLOG) 100 UNIT/ML VIAL SQ SCH ×4 (07:30→21:26)
[2023-04-14] MEDS: LACTATED RINGERS 1,000 ML IV SCH (07:47)
[2023-04-14 09:31] LABS: Basophils % (A) 0 %; Eosinophils # (A) 0.1 k/uL (0-0.7); Eosinophils % (A) 1 %; HCT 36.4 % (39.0-53.0); HGB 12.1 gm/dL (13.0-17.5); Lymphocytes # (A) 0.7 k/uL (1.0-4.8); Lymphocytes % (A) 7 %; MCH 33.4 pg (25.0-35.0); MCHC 33.3 g/dL (31.0-37.0); MCV 100.3 fL (80.0-100.0); Mean Platelet Volume 7.3; Monocytes # (A) 0.7 k/uL (0-1.0); Monocytes % (A) 7 %; Neutrophils % (A) 83 %; Platelet Count 171 k/uL (150-450); RBC 3.62 m/uL (4.30-5.90); RDW 12.6 % (11.5-15.5); WBC 9.7 k/uL (3.8-10.6)
[2023-04-14] MEDS: ONDANSETRON 4 MG/2 ML VIAL IVP PRN ×2 (09:42→20:01)
[2023-04-14] MEDS: PANTOPRAZOLE 40 MG/10 ML VIAL IVP SCH (09:42)
[2023-04-14] MEDS: OXYBUTYNIN 15 MG TAB.ER.24 PO SCH (09:42)
[2023-04-14] MEDS: ATORVASTATIN 80 MG TAB PO SCH (09:44)
[2023-04-14] MEDS: METOPROLOL TARTRATE 25 MG TAB PO SCH ×2 (09:44→21:29)
[2023-04-14] MEDS: ASPIRIN 81 MG PO SCH (09:44)
[2023-04-14] MEDS: TAMSULOSIN 0.4 MG CAP.ER.24H PO SCH ×2 (09:44→21:29)
[2023-04-14] MEDS: SENNOSIDES-DOCUSATE SODIUM 1 EACH TAB PO SCH (09:44)
[2023-04-14] MEDS: GABAPENTIN 100 MG CAP PO SCH ×2 (09:44→21:29)
[2023-04-14] MEDS: DULoxetine HCL 60 MG CAPSULE.DR PO SCH (09:44)
[2023-04-14] MEDS: SPIRONOLACTONE 25 MG TAB PO SCH (09:44)
[2023-04-14 09:46] LABS: African American GFR (CKD) >90 (>60 ml/min/1.73 sqM); Anion Gap 6 mmol/L; Blood Urea Nitrogen 11 mg/dL (9-20); Calcium 7.9 mg/dL (8.4-10.2); Carbon Dioxide 25 mmol/L (22-30); Chloride 96 mmol/L (98-107); Glucose 125 mg/dL (74-99); Non-African American GFR(CKD) >90 (>60 ml/min/1.73 sqM); Potassium 4.1 mmol/L (3.5-5.1); Sodium 127 mmol/L (137-145)
[2023-04-14] MEDS: SODIUM CHLORIDE 0.9% 1,000 ML IV SCH ×2 (10:52→23:48)
[2023-04-14] MEDS: HYDROcodone/APAP 10-325MG 1 EACH TAB PO PRN (10:55)
[2023-04-14 11:31] LABS: Glucose,Whole Blood 188 mg/dL (70-110)
--- NOTE | 2023-04-14 13:00 | P.PN ---
Subjective Progress Note Date: 04/14/23 Principal diagnosis: Lumbar stenosis. Status post posterior lumbar decompression and fusion L3 to S1. The patient has had long-standing issues in their lower back and lower extremities. He is having worsening symptoms at his back and his bilateral lower extremities worse on the left than the right. He is found have severe changes his lumbar spine with spondylolisthesis degenerative scoliosis severe disc degeneration and severe spinal stenosis at multiple levels in his lumbar spine. This correlated well with his low back and lower extremity symptoms. The patient has been through conservative treatment. We discussed various treatment options including surgery, and the patient wishes to proceed with surgery We discussed the risk, patient's alternatives and benefits of surgery including but not limited to, risk of bleeding risk of infection, risk of need for further surgery, risk of decreased, loss of motion, muscle function, malunion nonunion, hardware failure, nerve damage, paralysis, heart attack, blindness and . After discussing all this risks, patient alternatives and benefits patient elected proceed with surgical intervention find signed informed consent. 04/14/2023: The patient is postoperative day #2 status post posterior lumbar decompression and fusion L3 to S1. He has no new complaints or concerns. He has been up with physical therapy and is able to get to the bathroom with 1 person assist. He has no new complaints or concerns today. He reports no neurologic deficits to the lower extremities. Vital signs are stable. Objective - Vital Signs Vital signs: Vital Signs Temp 97.9 F 04/14/23 08:00 Pulse 70 04/14/23 08:00 Resp 18 04/14/23 08:00 BP 143/79 04/14/23 08:00 Pulse Ox 95 04/14/23 08:00 FiO2 Intake & Output 04/13/23 04/14/23 04/14/23 18:59 06:59 18:59 Output Total 610 150 Balance -610 -150 Output: Drainage 160 Lower Back 160 Urine 450 150 Uretheral (Collins) 450 Other: Voiding Method Toilet Toilet # Voids 3 - Exam This is a pleasant 68-year-old male in no acute distress. He is alert and oriented 3. Exam of the low back reveals that his dressing is clean, dry and intact. The Hemovac is in place. Minimal soft tissue swelling about the low back. Exam the lower extremities reveals no obvious deformity. He is able to lift each leg off the bed independently. He has full foot and ankle motion without difficulty or pain. Neurovascular status to the lower extremities is intact. - Labs CBC & Chem 7: 04/14/23 08:16 04/14/23 08:16 Labs: Abnormal Lab Results - Last 24 Hours (Table) 04/13/23 04/13/23 04/13/23 Range/Units 04:09 04:09 16:54 RBC 3.57 L (4.40-5.60) X 10*6/uL Hgb 11.8 L (13.0-17.0) d/dL Hct 36.1 L (39.6-50.0) % MCV 101.1 H (80.0-97.0) FL MCH 33.1 H (27.0-32.0) pg Neutrophils # (1.3-7.7) k/uL Lymphocytes # (1.0-4.8) k/uL Sodium (137-145) mmol/L Chloride (98-107) mmol/L Glucose 136 H (70-110) mg/dL POC Glucose (mg/dL) 184 H (70-110) mg/dL Calcium 8.5 L (8.7-10.3) mg/dL 04/13/23 04/14/23 04/14/23 Range/Units 20:55 06:14 08:16 RBC 3.62 L (4.40-5.60) X 10*6/uL Hgb 12.1 L (13.0-17.0) d/dL Hct 36.4 L (39.6-50.0) % MCV 100.3 H (80.0-97.0) FL MCH (27.0-32.0) pg Neutrophils # 8.0 H (1.3-7.7) k/uL Lymphocytes # 0.7 L (1.0-4.8) k/uL Sodium (137-145) mmol/L Chloride (98-107) mmol/L Glucose (70-110) mg/dL POC Glucose (mg/dL) 180 H 134 H (70-110) mg/dL Calcium (8.7-10.3) mg/dL 04/14/23 04/14/23 Range/Units 08:16 11:30 RBC (4.40-5.60) X 10*6/uL Hgb (13.0-17.0) d/dL Hct (39.6-50.0) % MCV (80.0-97.0) FL MCH (27.0-32.0) pg Neutrophils # (1.3-7.7) k/uL Lymphocytes # (1.0-4.8) k/uL Sodium 127 L (137-145) mmol/L Chloride 96 L (98-107) mmol/L Glucose 125 H (70-110) mg/dL POC Glucose (mg/dL) 188 H (70-110) mg/dL Calcium 7.9 L (8.7-10.3) mg/dL Assessment and Plan (1) Lumbar spinal stenosis Current Visit: Yes Status: Acute Code(s): M48.061 - SPINAL STENOSIS, LUMBAR REGION WITHOUT NEUROGENIC ERIC SNOMED Code(s): 31944246 (2) Status post lumbar spinal fusion Current Visit: Yes Status: Acute Code(s): Z98.1 - ARTHRODESIS STATUS SNOMED Code(s): 16327923355283 Plan: The clinical findings are discussed with the patient. I will pull his Hemovac today. He may be up as tolerated with physical therapy. We are planning discharge to home tomorrow versus Monday.
[2023-04-14 16:49] LABS: Glucose,Whole Blood 141 mg/dL (70-110)
[2023-04-14 21:07] LABS: Glucose,Whole Blood 147 mg/dL (70-110)
--- NOTE | 2023-04-14 21:47 | P.PN ---
Subjective Progress Note Date: 04/14/23 He is feeling better today, denies chest or abdominal pain or difficulty urinating. He does complain of low back pain. He has been ambulating with PT. Objective - Vital Signs Vital signs: Vital Signs Temp 98.1 F 04/14/23 19:44 Pulse 76 04/14/23 19:44 Resp 16 04/14/23 19:44 BP 143/72 04/14/23 19:44 Pulse Ox 95 04/14/23 19:44 FiO2 Intake & Output 04/14/23 04/14/23 04/15/23 06:59 18:59 06:59 Output Total 150 Balance -150 Output: Urine 150 Other: Voiding Method Toilet Toilet Urinal # Voids 4 - Exam Gen: Obese, NAD CV: RRR, no murmur Lungs: CTAB Abd: soft, nontender - Labs CBC & Chem 7: 04/14/23 08:16 04/14/23 08:16 Labs: Abnormal Lab Results - Last 24 Hours (Table) 04/13/23 04/14/23 04/14/23 Range/Units 04:09 06:14 08:16 RBC (4.30-5.90) m/uL Hgb (13.0-17.5) gm/dL Hct (39.0-53.0) % MCV (80.0-100.0) fL Neutrophils # (1.3-7.7) k/uL Lymphocytes # (1.0-4.8) k/uL Sodium (137-145) mmol/L Chloride (98-107) mmol/L Glucose 136 H (70-110) mg/dL POC Glucose (mg/dL) 134 H (70-110) mg/dL Hemoglobin A1c 6.1 H (<=6.0) % Calcium 8.5 L (8.7-10.3) mg/dL 04/14/23 04/14/23 04/14/23 Range/Units 08:16 08:16 11:30 RBC 3.62 L (4.30-5.90) m/uL Hgb 12.1 L (13.0-17.5) gm/dL Hct 36.4 L (39.0-53.0) % MCV 100.3 H (80.0-100.0) fL Neutrophils # 8.0 H (1.3-7.7) k/uL Lymphocytes # 0.7 L (1.0-4.8) k/uL Sodium 127 L (137-145) mmol/L Chloride 96 L (98-107) mmol/L Glucose 125 H (70-110) mg/dL POC Glucose (mg/dL) 188 H (70-110) mg/dL Hemoglobin A1c (<=6.0) % Calcium 7.9 L (8.7-10.3) mg/dL 04/14/23 04/14/23 Range/Units 16:48 21:05 RBC (4.30-5.90) m/uL Hgb (13.0-17.5) gm/dL Hct (39.0-53.0) % MCV (80.0-100.0) fL Neutrophils # (1.3-7.7) k/uL Lymphocytes # (1.0-4.8) k/uL Sodium (137-145) mmol/L Chloride (98-107) mmol/L Glucose (70-110) mg/dL POC Glucose (mg/dL) 141 H 147 H (70-110) mg/dL Hemoglobin A1c (<=6.0) % Calcium (8.7-10.3) mg/dL Assessment and Plan Plan: Continue with current medications and treatment. PT, OT. Continue IV fluids
[2023-04-15 02:48] VITALS: TEMP 97.9
[2023-04-15] MEDS: HYDROcodone/APAP 10-325MG 1 EACH TAB PO PRN ×2 (03:21→09:48)
[2023-04-15] MEDS: LACTATED RINGERS 1,000 ML IV SCH (05:21)
[2023-04-15 05:35] LABS: Glucose,Whole Blood 154 mg/dL (70-110)
[2023-04-15] MEDS: INSULIN ASPART (NovoLOG) 100 UNIT/ML VIAL SQ SCH (05:38)
[2023-04-15 08:03] VITALS: BP 146/80; PULSE 69; RESP 17
--- NOTE | 2023-04-15 09:40 | P.DS ---
Providers Expected date of discharge: 04/15/23 Attending physician: Mario Bingham Consults: 04/12/23 16:55 Consult Physician Routine Consulting Provider: Chase Castro Consult Reason/Comments: Medical management Do you want consulting provider notified?: Yes Primary care physician: Chase Castro MD - Discharge Diagnosis(es) (1) Lumbar spinal stenosis Current Visit: Yes Status: Acute (2) Status post lumbar spinal fusion Current Visit: Yes Status: Acute Hospital Course: The patient has had long-standing issues in their lower back and lower extremities. He is having worsening symptoms at his back and his bilateral lower extremities worse on the left than the right. He is found have severe changes his lumbar spine with spondylolisthesis degenerative scoliosis severe disc degeneration and severe spinal stenosis at multiple levels in his lumbar spine. This correlated well with his low back and lower extremity symptoms. The patient has been through conservative treatment. We discussed various treatment options including surgery, and the patient wishes to proceed with surgery We discussed the risk, patient's alternatives and benefits of surgery including but not limited to, risk of bleeding risk of infection, risk of need for further surgery, risk of decreased, loss of motion, muscle function, malunion nonunion, hardware failure, nerve damage, paralysis, heart attack, blindness and . After discussing all this risks, patient alternatives and benefits patient elected proceed with surgical intervention find signed informed consent. Patient was taken to surgery on 04/12/2023 for posterior lumbar decompression and fusion L3 to S1. The patient was moving quite slow initially but has been improving with physical therapy. Today he is ambulating without assistance with use of walker. Vital signs are stable. Labs are stable. Dressing is clean, dry and intact. The patient may be discharged to home today in good condition. Plan - Discharge Summary Discharge Rx Participant: Yes New Discharge Prescriptions: New HYDROcodone/APAP 10-325MG [[place] 10-325] 1 tab PO Q6HR PRN #28 tab PRN Reason: Pain Sennosides-Docusate Sodium [Senokot-S] 1 tab PO BID #60 tablet No Action Nitroglycerin Sl Tabs [Nitrostat] 0.4 mg PO Q5M PRN PRN Reason: Chest Pain Metoprolol Tartrate 25 mg PO BID Spironolactone [Aldactone] 25 mg PO DAILY lisinopriL 20 mg PO DAILY Tamsulosin HCl [Flomax] 0.4 mg PO BID Oxybutynin ER [Ditropan XL] 15 mg PO DAILY Cyclobenzaprine [Flexeril] 5 mg PO BID PRN PRN Reason: Muscle Spasm Aspirin [Adult Low Dose Aspirin EC] 81 mg PO DAILY Gabapentin [Neurontin] 200 mg PO BID DULoxetine HCL [Cymbalta] 60 mg PO DAILY Sildenafil Citrate 100 mg PO DAILY PRN PRN Reason: e.d. HYDROcodone/APAP 5-325MG [[place] 5-325] 1 tab PO Q6HR PRN PRN Reason: Pain Atorvastatin [Lipitor] 80 mg PO DAILY Discharge Medication List Nitroglycerin Sl Tabs [Nitrostat] 0.4 mg PO Q5M PRN 01/15/15 [History] Metoprolol Tartrate 25 mg PO BID 01/16/15 [History] Spironolactone [Aldactone] 25 mg PO DAILY 01/16/15 [History] Tamsulosin HCl [Flomax] 0.4 mg PO BID 07/05/19 [History] lisinopriL 20 mg PO DAILY 07/05/19 [History] DULoxetine HCL [Cymbalta] 60 mg PO DAILY 12/21/22 [History] Sildenafil Citrate 100 mg PO DAILY PRN 12/21/22 [History] Aspirin [Adult Low Dose Aspirin EC] 81 mg PO DAILY 04/04/23 [History] Atorvastatin [Lipitor] 80 mg PO DAILY 04/04/23 [History] Cyclobenzaprine [Flexeril] 5 mg PO BID PRN 04/04/23 [History] Gabapentin [Neurontin] 200 mg PO BID 04/04/23 [History] HYDROcodone/APAP 5-325MG [[place] 5-325] 1 tab PO Q6HR PRN 04/04/23 [History] Oxybutynin ER [Ditropan XL] 15 mg PO DAILY 04/04/23 [History] HYDROcodone/APAP 10-325MG [[place] 10-325] 1 tab PO Q6HR PRN #28 tab 04/15/23 [Rx] Sennosides-Docusate Sodium [Senokot-S] 1 tab PO BID #60 tablet 04/15/23 [Rx] Follow up Appointment(s)/Referral(s): Pasia,E Shantanu, DO [Doctor of Osteopathic Medicine] - 2 Weeks Activity/Diet/Wound Care/Special Instructions: Keep dressing intact 7 days. May shower. Follow-up with Dr. Bingham or Lonnie Ross 2 weeks postoperatively. Call the office with any questions or concerns.
[2023-04-15] MEDS: SPIRONOLACTONE 25 MG TAB PO SCH (09:42)
[2023-04-15] MEDS: PANTOPRAZOLE 40 MG/10 ML VIAL IVP SCH (09:42)
[2023-04-15] MEDS: SENNOSIDES-DOCUSATE SODIUM 1 EACH TAB PO SCH (09:42)
[2023-04-15] MEDS: TAMSULOSIN 0.4 MG CAP.ER.24H PO SCH (09:42)
[2023-04-15] MEDS: ATORVASTATIN 80 MG TAB PO SCH (09:42)
[2023-04-15] MEDS: METOPROLOL TARTRATE 25 MG TAB PO SCH (09:42)
[2023-04-15] MEDS: GABAPENTIN 100 MG CAP PO SCH (09:42)
[2023-04-15] MEDS: DULoxetine HCL 60 MG CAPSULE.DR PO SCH (09:42)
[2023-04-15] MEDS: ASPIRIN 81 MG PO SCH (09:42)
[2023-04-15] MEDS: OXYBUTYNIN 15 MG TAB.ER.24 PO SCH (09:43)
[2023-04-15 11:44] LABS: African American GFR (CKD) >90 (>60 ml/min/1.73 sqM); Anion Gap 6 mmol/L; Blood Urea Nitrogen 9 mg/dL (9-20); Carbon Dioxide 29 mmol/L (22-30); Chloride 92 mmol/L (98-107); Glucose 161 mg/dL (74-99); Non-African American GFR(CKD) >90 (>60 ml/min/1.73 sqM); Potassium 4.4 mmol/L (3.5-5.1); Sodium 127 mmol/L (137-145)
--- NOTE | 2023-04-15 15:58 | P.PN ---
Subjective Progress Note Date: 04/15/23 This is a 68 year male with medical history of coronary artery disease, hypertension, hyperlipidemia. Also prior history of cardiac stenting. Patient is postoperative day #3 decompression L3 through S1. Patient is evaluated today sitting up in the bed with family at the bedside. He has no acute complaints of chest pain or shortness of breath his having bowel movements he is urinating without difficulty. His Hemovac was removed from his lower lumbar incision yesterday with no complications. He shouldn't have low sodium of 127 yesterday postoperatively and at 127 again today. Would recommend follow up labs outpatient and to see his PCP in 1 to 2 days would also recommend to see nephrology for the low sodium. Patient is on room air with adequate oxygen saturation of 95%. Review of Systems Constitutional: Denied any fatigue denied any fever. Cardio vascular: denied any chest pain, palpitations Gastrointestinal: denied any nausea, vomiting, diarrhea Pulmonary: Denied any shortness of breath cough Neurologic denied any new focal deficits All inpatient medications were reviewed and appropriate changes in these medications as dictated in the interval history and assessment and plan. PHYSICAL EXAMINATION: GENERAL: The patient is alert and oriented x3, not in any acute distress. Well developed, well nourished. HEENT: Pupils are round and equally reacting to light. EOMI. No scleral icterus. No conjunctival pallor. Normocephalic, atraumatic. No pharyngeal erythema. No thyromegaly. CARDIOVASCULAR: S1 and S2 present. No murmurs, rubs, or gallops. PULMONARY: Chest is clear to auscultation, no wheezing or crackles. ABDOMEN: Soft, nontender, nondistended, normoactive bowel sounds. No palpable organomegaly. MUSCULOSKELETAL: No joint swelling or deformity. EXTREMITIES: No cyanosis, clubbing, or pedal edema. NEUROLOGICAL: Gross neurological examination did not reveal any focal deficits. SKIN: No rashes. Assessment S/P open decompression and fusion L3 4 L4 5 L5-S1 for severe stenosis with spondylolisthesis lower shoulder radiculopathy, removal of a facet cyst causing further compression of his neural structures. Hyponatremia repeat labs outpatient and f/u with nephrology Acute hypoxic respiratory failure secondary to the above, resolved. Chronic low back pain CAD, history of DC, stent History of Prostate cancer with radiation tx BPH Osteoarthritis Rheumatoid arthritis Morbid obesity BMI 42 GI prophylaxis DVT prophylaxis as per primary Full Code Plan Would recommend outpatient work up and monitoring for the hyponatremia if p atient is to be discharged home today. Script given for repeat BMP and recommend to see Dr. Eli. Continue to use incentive spirometer 10 x an hour while awake. Continue on bowel regimen while using narcotic for pain management. F/U orthopedics as recommended. The impression and plan of care has been dictated by Shelia Olvera, Nurse Practitioner as directed. Dr. Estephanie MD I have performed a history and physical examination and medical decision making of this patient, discussed the same with the dictator, and agree with the dictators assessment and plan as written, documented as a scribe. Based on total visit time, I have performed more than 50% of this visit. Objective - Vital Signs Vital signs: Vital Signs Temp 97.9 F 04/15/23 07:03 Pulse 69 04/15/23 07:03 Resp 17 04/15/23 07:03 BP 146/80 04/15/23 07:03 Pulse Ox 95 04/15/23 07:03 FiO2 Intake & Output 04/14/23 04/15/23 04/15/23 18:59 06:59 18:59 Other: Voiding Method Toilet Urinal # Voids 4 4 - Labs CBC & Chem 7: 04/14/23 08:16 04/15/23 11:09 Labs: Abnormal Lab Results - Last 24 Hours (Table) 04/14/23 04/14/23 04/14/23 Range/Units 08:16 16:48 21:05 Sodium (137-145) mmol/L Chloride (98-107) mmol/L Glucose (74-99) mg/dL POC Glucose (mg/dL) 141 H 147 H (70-110) mg/dL Hemoglobin A1c 6.1 H (<=6.0) % Calcium (8.4-10.2) mg/dL 04/15/23 04/15/23 Range/Units 05:30 11:09 Sodium 127 L (137-145) mmol/L Chloride 92 L (98-107) mmol/L Glucose 161 H (74-99) mg/dL POC Glucose (mg/dL) 154 H (70-110) mg/dL Hemoglobin A1c (<=6.0) % Calcium 8.0 L (8.4-10.2) mg/dL Assessment and Plan Time with Patient: Less than 30
== END 2023-04-15 12:14 | disposition home health service (06) ==
LOC: OR 09:41 → 4SSUR 16:53 → OR 04-15 12:14
PROVIDERS: ATTEND Orthopaedic Surgery Orthopaedic Surgery of the Spine
DX: M48.07 Spinal stenosis, lumbosacral region (principal); M51.37 Other intervertebral disc degeneration, lumbosacral region; M41.86 Other forms of scoliosis, lumbar region; M43.17 Spondylolisthesis, lumbosacral region; M54.12 Radiculopathy, cervical region; E66.01 Morbid (severe) obesity due to excess calories; M06.9 Rheumatoid arthritis, unspecified; D64.9 Anemia, unspecified; E78.5 Hyperlipidemia, unspecified; G89.29 Other chronic pain; I10 Essential (primary) hypertension; I25.10 Atherosclerotic heart disease of native coronary artery without angina pectoris; I25.2 Old myocardial infarction; M79.7 Fibromyalgia; N40.0 Benign prostatic hyperplasia without lower urinary tract symptoms; Z79.82 Long term (current) use of aspirin; Z88.2 Allergy status to sulfonamides; Z88.1 Allergy status to other antibiotic agents; Z85.46 Personal history of malignant neoplasm of prostate; Z95.5 Presence of coronary angioplasty implant and graft; Z92.3 Personal history of irradiation; Z79.899 Other long term (current) drug therapy; Z68.41 Body mass index [BMI] 40.0-44.9, adult
CPT/HCPCS: 22612; 97116; 97162; 86891; 86900; 86901; 88305; 80048 ×2; 85025; 86850; 72100; 22614 ×2; 22840; 20936; C1713; P9045; J2250; J0330; J1940; J2710; J0690 ×3; J2405 ×2; J3010; J1170 ×3; J2704; C9113 ×2; J2001; J2371

== ENCOUNTER 2023-04-29 13:11 | Observation (INO) | payer MEDICARE, BC ==
[2023-04-29 13:19] VITALS: TEMP 97.7
[2023-04-29] MEDS ORDERED: NITROGLYCERIN SL TABS 0.4 MG TAB SUBLINGUAL STA ×3 (13:28)
[2023-04-29] MEDS ORDERED: ASPIRIN 81 MG PO STA (13:28)
--- NOTE | 2023-04-29 13:32 | ED ---
General Adult HPI - General Chief complaint: Chest Pain Stated complaint: pain chest Time Seen by Provider: 04/29/23 13:22 Source: patient, RN notes reviewed Mode of arrival: ambulatory Limitations: no limitations - History of Present Illness Initial comments: Patient is a pleasant 68-year-old male presenting to the emergency department with concerns with chest discomfort. Onset of symptoms was around 9 this morning. Discomfort feels like an ache or sharp. Patient has discomfort in the upper back as well as the chest. Mostly central somewhat towards the right. Patient does not feel short of breath however family states he appears short of breath. No nausea. No diaphoresis. Patient does have history of heart attack years ago with somewhat similar symptoms however that was more left-sided. Patient is several weeks postop lumbar surgery. - Related Data Home Medications Medication Instructions Recorded Confirmed Nitroglycerin Sl Tabs [Nitrostat] 0.4 mg PO Q5M PRN 01/15/15 04/12/23 Metoprolol Tartrate 25 mg PO BID 01/16/15 04/12/23 Spironolactone [Aldactone] 25 mg PO DAILY 01/16/15 04/12/23 Tamsulosin HCl [Flomax] 0.4 mg PO BID 07/05/19 04/12/23 lisinopriL 20 mg PO DAILY 07/05/19 04/12/23 DULoxetine HCL [Cymbalta] 60 mg PO DAILY 12/21/22 04/12/23 Sildenafil Citrate 100 mg PO DAILY PRN 12/21/22 04/12/23 Aspirin [Adult Low Dose Aspirin EC] 81 mg PO DAILY 04/04/23 04/12/23 Atorvastatin [Lipitor] 80 mg PO DAILY 04/04/23 04/12/23 Cyclobenzaprine [Flexeril] 5 mg PO BID PRN 04/04/23 04/12/23 Gabapentin [Neurontin] 200 mg PO BID 04/04/23 04/12/23 HYDROcodone/APAP 5-325MG [[place] 1 tab PO Q6HR PRN 04/04/23 04/12/23 5-325] Oxybutynin ER [Ditropan XL] 15 mg PO DAILY 04/04/23 04/12/23 Previous Rx's Medication Instructions Recorded HYDROcodone/APAP 10-325MG [[place] 1 tab PO Q6HR PRN #28 tab 04/15/23 10-325] Sennosides-Docusate Sodium 1 tab PO BID #60 tablet 04/15/23 [Senokot-S] Allergies Allergy/AdvReac Type Severity Reaction Status Date / Time Sulfa (Sulfonamide Allergy Rash/Hives Verified 04/29/23 13:19 Antibiotics) Review of Systems ROS Statement: Those systems with pertinent positive or pertinent negative responses have been documented in the HPI. ROS Other: All systems not noted in ROS Statement are negative. Constitutional: Denies: fever Eyes: Denies: eye pain ENT: Denies: ear pain Respiratory: Reports: as per HPI. Denies: cough Cardiovascular: Reports: as per HPI, chest pain Past Medical History Past Medical History: Coronary Artery Disease (CAD), Cancer, Chest Pain / Angina, Fibromyalgia, Hyperlipidemia, Hypertension, Myocardial Infarction (SC), Musculoskeletal Disorder, Osteoarthritis (OA), Prostate Disorder Additional Past Medical History / Comment(s): Prostate cancer with radiation in 2016, BPH, arthritis in multiple joints, chronic low back pain with bilateral sciatica, Last Myocardial Infarction Date:: 2012 History of Any Multi-Drug Resistant Organisms: None Reported Past Surgical History: Back Surgery, Heart Catheterization, Heart Catheterization With Stent, Joint Replacement, Orthopedic Surgery Additional Past Surgical History / Comment(s): 2014 cardiac cath, 2012 PCI with stents to LAD, L knee arthroscopy, total R knee, L shoulder arthroscopy, L carpal tunnel release, colonoscopy. pain clinic procedures Past Anesthesia/Blood Transfusion Reactions: No Reported Reaction Additional Past Anesthesia/Blood Transfusion Reaction / Comment(s): no hx blood transfusion Date of Last Stent Placement:: 2012 Past Psychological History: No Psychological Hx Reported Smoking Status: Never smoker Past Alcohol Use History: Occasional Past Drug Use History: Marijuana - Past Family History Father Family Medical History: Cancer Additional Family Medical History / Comment(s): kidney/bone cancer- of at the age of 59yrs. Mother Family Medical History: Musculoskeletal Disorder, Neurologic Disorder Additional Family Medical History / Comment(s): Mother of Ghada Braeden's disease General Exam Limitations: no limitations General appearance: alert, in no apparent distress Head exam: Present: normocephalic Eye exam: Present: normal appearance Neck exam: Present: normal inspection Respiratory exam: Present: normal lung sounds bilaterally. Absent: chest wall tenderness Cardiovascular Exam: Present: regular rate, normal rhythm Expanded Peripheral pulses: 2+: Radial (R), Radial (L), Posterior Tibialis (R), Posterior Tibialis (L) GI/Abdominal exam: Present: soft. Absent: tenderness Extremities exam: Present: normal inspection. Absent: pedal edema, calf tenderness Back exam: Present: tenderness (Mild tenderness right mid thoracic region) Neurological exam: Present: alert Psychiatric exam: Present: normal affect, normal mood Skin exam: Present: other (Incision lumbar region clean and dry and intact) Course Vital Signs 04/29/23 04/29/23 13:16 13:47 Temperature 97.7 F Pulse Rate 89 85 Respiratory 22 18 Rate Blood Pressure 139/76 137/79 O2 Sat by Pulse 94 L 93 L Oximetry EKG Findings - EKG Results: EKG: interpreted by KAYLEEN (Left axis.), sinus rhythm, normal QRS, normal ST/T Medical Decision Making - Medical Decision Making Was pt. sent in by a medical professional or institution (, PA, [employer], urgent care, hospital, or skilled nursing...) When possible be specific @ -No Did you speak to anyone other than the patient for history (EMS, parent, family, police, friend...)? What history was obtained from this source @ -No Did you review nursing and triage notes (agree or disagree)? Why? @ -I reviewed and agree with nursing and triage notes Were old charts reviewed (outside hosp., previous admission, EMS record, old EKG, old radiological studies, urgent care reports/EKG's, skilled nursing records)? Report findings @ -No old charts were reviewed Differential Diagnosis (chest pain, altered mental status, abdominal pain women, abdominal pain men, vaginal bleeding, weakness, fever, dyspnea, syncope, headache, dizziness, GI bleed, back pain, seizure, CVA, palpatations, mental health, musculoskeletal)? @ -Differential Chest Pain: Stable Angina, Unstable Angina, STEMI, NSTEMI Aortic Dissection, Pneumothorax, Musculoskeletal, Esophageal Spasm GERD, Cholecystitis, Pancreatitis, Zoster, this is not meant to be an all-inclusive list. EKG interpreted by me (3pts min.). @ -As above X-rays interpreted by me (1pt min.). @ -Chest x-ray does show some increase right lower lobe markings CT interpreted by me (1pt min.). @ -None done U/S interpreted by me (1pt. min.). @ -None done What testing was considered but not performed or refused? (CT, X-rays, U/S, labs)? Why? @ -Computed tomography scan of the chest will be ordered secondary to increased markings on chest x-ray and elevated d-dimer. What meds were considered but not given or refused? Why? @ -None Did you discuss the management of the patient with other professionals (professionals i.e. , PA, [employer], lab, RT, psych nurse, social insurance administrator, steward/stewardess economy class, teacher, tactical intelligence officer, keycase assembler)? Give summary @ -Case discussed with [facility], who will admit covering for Dr. Darby Was smoking cessation discussed for >3mins.? @ -No Was critical care preformed (if so, how long)? @ -No Were there social determinants of health that impacted care today? How? (Homelessness, low income, unemployed, alcoholism, drug addiction, transportation, low edu. Level, literacy, decrease access to med. care, correction, rehab)? @ -No Was there de-escalation of care discussed even if they declined (Discuss DNR or withdrawal of care, Hospice)? DNR status @ -No What co-morbidities impacted this encounter? (DM, HTN, Smoking, COPD, CAD, Cancer, CVA, ARF, Chemo, Hep., AIDS, mental health diagnosis, sleep apnea, morbid obesity)? @ -None Was patient admitted / discharged? Hospital course, mention meds given and route, prescriptions, significant lab abnormalities, going to OR and other pertinent info. @ -Patient reevaluated. Patient states he feels much better following third nitroglycerin. Patient will be admitted for computed tomography scan and repeat troponin and cardiac evaluation. Admission orders written. Undiagnosed new problem with uncertain prognosis? @ -No Drug Therapy requiring intensive monitoring for toxicity (Heparin, Nitro, Insulin, Cardizem)? @ -No Were any procedures done? @ -No Diagnosis/symptom? @ -Chest pain Acute, or Chronic, or Acute on Chronic? @ -Acute Uncomplicated (without systemic symptoms) or Complicated (systemic symptoms)? @ -default Side effects of treatment? @ -No Exacerbation, Progression, or Severe Exacerbation? @ -No Poses a threat to life or bodily function? How? (Chest pain, USA, SC, pneumonia, PE, COPD, DKA, ARF, appy, cholecystitis, CVA, Diverticulitis, Homicidal, Suicidal, threat to staff... and all critical care pts) @ -No - Lab Data Result diagrams: 04/29/23 13:41 04/29/23 13:41 Lab Results 04/29/23 04/29/23 04/29/23 Range/Units 13:41 13:41 13:41 WBC 7.4 (3.8-10.6) k/uL RBC 3.79 L (4.30-5.90) m/uL Hgb 12.2 L (13.0-17.5) gm/dL Hct 37.0 L (39.0-53.0) % MCV 97.7 (80.0-100.0) fL MCH 32.1 (25.0-35.0) pg MCHC 32.9 (31.0-37.0) g/dL RDW 13.1 (11.5-15.5) % Plt Count 406 D (150-450) k/uL MPV 7.5 Neutrophils % 73 % Lymphocytes % 16 % Monocytes % 6 % Eosinophils % 2 % Basophils % 1 % Neutrophils # 5.4 (1.3-7.7) k/uL Lymphocytes # 1.2 (1.0-4.8) k/uL Monocytes # 0.4 (0-1.0) k/uL Eosinophils # 0.2 (0-0.7) k/uL Basophils # 0.0 (0-0.2) k/uL PT 10.2 (9.0-12.0) sec INR 1.0 (<1.2) APTT 25.2 (22.0-30.0) sec D-Dimer 7.02 H (<0.60) mg/L FEU Sodium 134 L (137-145) mmol/L Potassium 4.3 (3.5-5.1) mmol/L Chloride 100 (98-107) mmol/L Carbon Dioxide 26 (22-30) mmol/L Anion Gap 8 mmol/L BUN 11 (9-20) mg/dL Creatinine 0.89 (0.66-1.25) mg/dL Est GFR (CKD-EPI)AfAm >90 (>60 ml/min/1.73 sqM) Est GFR (CKD-EPI)NonAf 89 (>60 ml/min/1.73 sqM) Glucose 137 H (74-99) mg/dL Calcium 9.3 (8.4-10.2) mg/dL Magnesium 1.9 (1.6-2.3) mg/dL Total Bilirubin 0.4 (0.2-1.3) mg/dL AST 26 (17-59) U/L ALT 23 (4-49) U/L Alkaline Phosphatase 72 (38-126) U/L Troponin I (0.000-0.034) ng/mL Total Protein 6.7 (6.3-8.2) g/dL Albumin 3.6 (3.5-5.0) g/dL Amylase 40 (30-110) U/L Lipase 52 (23-300) U/L 04/29/23 Range/Units 13:41 WBC (3.8-10.6) k/uL RBC (4.30-5.90) m/uL Hgb (13.0-17.5) gm/dL Hct (39.0-53.0) % MCV (80.0-100.0) fL MCH (25.0-35.0) pg MCHC (31.0-37.0) g/dL RDW (11.5-15.5) % Plt Count (150-450) k/uL MPV Neutrophils % % Lymphocytes % % Monocytes % % Eosinophils % % Basophils % % Neutrophils # (1.3-7.7) k/uL Lymphocytes # (1.0-4.8) k/uL Monocytes # (0-1.0) k/uL Eosinophils # (0-0.7) k/uL Basophils # (0-0.2) k/uL PT (9.0-12.0) sec INR (<1.2) APTT (22.0-30.0) sec D-Dimer (<0.60) mg/L FEU Sodium (137-145) mmol/L Potassium (3.5-5.1) mmol/L Chloride (98-107) mmol/L Carbon Dioxide (22-30) mmol/L Anion Gap mmol/L BUN (9-20) mg/dL Creatinine (0.66-1.25) mg/dL Est GFR (CKD-EPI)AfAm (>60 ml/min/1.73 sqM) Est GFR (CKD-EPI)NonAf (>60 ml/min/1.73 sqM) Glucose (74-99) mg/dL Calcium (8.4-10.2) mg/dL Magnesium (1.6-2.3) mg/dL Total Bilirubin (0.2-1.3) mg/dL AST (17-59) U/L ALT (4-49) U/L Alkaline Phosphatase (38-126) U/L Troponin I <0.012 (0.000-0.034) ng/mL Total Protein (6.3-8.2) g/dL Albumin (3.5-5.0) g/dL Amylase (30-110) U/L Lipase (23-300) U/L Disposition Clinical Impression: Chest pain Disposition: ADMITTED IP TO THIS HOSP Is patient prescribed a controlled substance at d/c from ED?: No Referrals: Chase Castro MD [Primary Care Provider] - 1-2 days Time of Disposition: 15:14
[2023-04-29 14:36] LABS: Basophils % (A) 1 %; Eosinophils # (A) 0.2 k/uL (0-0.7); Eosinophils % (A) 2 %; HGB 12.2 gm/dL (13.0-17.5); Lymphocytes # (A) 1.2 k/uL (1.0-4.8); Lymphocytes % (A) 16 %; MCH 32.1 pg (25.0-35.0); MCHC 32.9 g/dL (31.0-37.0); MCV 97.7 fL (80.0-100.0); Mean Platelet Volume 7.5; Monocytes # (A) 0.4 k/uL (0-1.0); Monocytes % (A) 6 %; Neutrophils # (A) 5.4 k/uL (1.3-7.7); Neutrophils % (A) 73 %; RBC 3.79 m/uL (4.30-5.90); RDW 13.1 % (11.5-15.5); WBC 7.4 k/uL (3.8-10.6)
[2023-04-29 14:42] LABS: ALT 23 U/L (4-49); AST 26 U/L (17-59); African American GFR (CKD) >90 (>60 ml/min/1.73 sqM); Albumin 3.6 g/dL (3.5-5.0); Alkaline Phosphatase 72 U/L (38-126); Amylase 40 U/L (30-110); Anion Gap 8 mmol/L; Blood Urea Nitrogen 11 mg/dL (9-20); Calcium 9.3 mg/dL (8.4-10.2); Carbon Dioxide 26 mmol/L (22-30); Chloride 100 mmol/L (98-107); Glucose 137 mg/dL (74-99); Lipase 52 U/L (23-300); Magnesium 1.9 mg/dL (1.6-2.3); Non-African American GFR(CKD) 89 (>60 ml/min/1.73 sqM); Platelet Count 406 k/uL (150-450); Potassium 4.3 mmol/L (3.5-5.1); Sodium 134 mmol/L (137-145); Total Bilirubin 0.4 mg/dL (0.2-1.3); Total Protein 6.7 g/dL (6.3-8.2)
[2023-04-29 14:47] LABS: Partial Thromboplastin Time 25.2 sec (22.0-30.0); Prothrombin Time 10.2 sec (9.0-12.0)
[2023-04-29] MEDS ORDERED: NITROGLYCERIN SL TABS 0.4 MG TAB SUBLINGUAL PRN ×2 (15:15→19:10)
[2023-04-29] MEDS ORDERED: HYDROcodone/APAP 10-325MG 1 EACH TAB PO PRN (15:16)
[2023-04-29] MEDS ORDERED: CYCLOBENZAPRINE 5 MG TAB PO PRN (15:16)
--- NOTE | 2023-04-29 16:14 | XR ---
EXAMINATION TYPE: XR chest 2V DATE OF EXAM: 04/29/2023 COMPARISON: 04/06/2023 HISTORY: Chest pain right side TECHNIQUE: Chest examination in frontal and lateral projections. FINDINGS: Heart size is normal. Pulmonary vasculature is normal. Mild posterior right lower lobe infi ltrate is present. Correlate for atelectasis or pneumonia. Remaining portions of the lungs are clear. IMPRESSION: 1. Clinical correlation recommended upper posterior right lung infiltrate. Correlate for atelectasis or pneumonia.
--- NOTE | 2023-04-29 16:21 | CT ---
CT CHEST FOR PULMONARY EMBOLISM. EXAMINATION TYPE: CT angio chest DATE OF EXAM: 04/29/2023 INDICATION: chest pain CT DLP: 1156.6 mGycm, Automated exposure control for dose reduction was used. CONTRAST: Patient injected with 100 mL of Isovue 370. COMPARISON: TECHNIQUE: CT of the chest is performed on a spiral scan at 2 mm thick sections. Study is performed with intravenous contrast timed for evaluation for pulmonary embolism. This will limit additional po rtions of the evaluation. 3-D MIP images reconstructed by the technologist are reviewed on the compu ter in the coronal and sagittal planes. FINDINGS: No persistent filling defects are evident to suggest an acute pulmonary embolism. No mediastinal or hilar adenopathy enlarged by CT criteria is evident. The ascending aorta diameter at the level of the main pulmonary artery is 4.4 cm. The main pulmonary artery diameter at the bifur cation is 3.2 cm. Mild coronary artery calcification is present. Minimal linear opacities are in the posterior lateral right lung base. Correlate for atelectasis. Pos terior medial right lung pleural calcifications present. Pleural thickening is present. Limited CT section through the upper abdomen. Pancreas is atrophic. IMPRESSION: 1. No acute pulmonary embolism. 2. Suggestion of mild atelectasis posterior lateral right lung base. 3. Pleural thickening with calcification. Consider prior asbestos exposure.
[2023-04-29] MEDS ORDERED: NITROGLYCERIN OINT 1 INCH/GM PACKET TOPICAL SCH (18:00)
[2023-04-29 18:50] VITALS: PULSE 74
[2023-04-29] MEDS ORDERED: ONDANSETRON 4 MG/2 ML VIAL IVP PRN (19:11)
[2023-04-29] MEDS ORDERED: NALOXONE 0.4 MG/ML 1 ML VIAL IV PRN (19:11)
[2023-04-29] MEDS ORDERED: ACETAMINOPHEN TAB 325 MG TAB PO PRN (19:11)
[2023-04-29] MEDS ORDERED: OXYBUTYNIN 15 MG TAB.ER.24 PO SCH (19:15)
[2023-04-29 20:01] VITALS: BP 151/83; RESP 20
[2023-04-29] MEDS ORDERED: TAMSULOSIN 0.4 MG CAP.ER.24H PO SCH (21:00)
[2023-04-29] MEDS ORDERED: METOPROLOL TARTRATE 25 MG TAB PO SCH (21:00)
[2023-04-29] MEDS ORDERED: SENNOSIDES-DOCUSATE SODIUM 1 EACH TAB PO SCH (21:00)
[2023-04-29] MEDS ORDERED: GABAPENTIN 100 MG CAP PO SCH (21:00)
[2023-04-30] MEDS ORDERED: ATORVASTATIN 80 MG TAB PO SCH (09:00)
[2023-04-30] MEDS ORDERED: SPIRONOLACTONE 25 MG TAB PO SCH (09:00)
[2023-04-30] MEDS ORDERED: ASPIRIN 81 MG PO SCH (09:00)
[2023-04-30] MEDS ORDERED: ASPIRIN 325 MG TAB PO SCH (09:00)
[2023-04-30] MEDS ORDERED: DULoxetine HCL 60 MG CAPSULE.DR PO SCH (09:00)
[2023-04-30] MEDS ORDERED: lisinopriL 20 MG TAB PO SCH (09:00)
== END 2023-04-29 20:25 | disposition left against medical advice (07) ==
LOC: EC 13:11 → 3SCARD 15:15 → 6NMEDSUR 16:56
PROVIDERS: ADMIT Internal Medicine; ATTEND Internal Medicine
DX: R07.89 Other chest pain (principal); I25.10 Atherosclerotic heart disease of native coronary artery without angina pectoris; E78.5 Hyperlipidemia, unspecified; M79.7 Fibromyalgia; N40.0 Benign prostatic hyperplasia without lower urinary tract symptoms; M15.9 Polyosteoarthritis, unspecified; G89.29 Other chronic pain; M54.42 Lumbago with sciatica, left side; M54.41 Lumbago with sciatica, right side; I25.2 Old myocardial infarction; Z53.29 Procedure and treatment not carried out because of patient's decision for other reasons; Z79.82 Long term (current) use of aspirin; Z79.899 Other long term (current) drug therapy; Z88.2 Allergy status to sulfonamides; Z85.46 Personal history of malignant neoplasm of prostate; Z92.3 Personal history of irradiation; Z95.5 Presence of coronary angioplasty implant and graft; Z98.890 Other specified postprocedural states; Z82.0 Family history of epilepsy and other diseases of the nervous system; Z80.51 Family history of malignant neoplasm of kidney; Z80.8 Family history of malignant neoplasm of other organs or systems
CPT/HCPCS: 99285; 36415; 85379; 80053; 82150; 83690; 83735; 84484; 85025; 85610; 85730; 71046; 71275; G0378 ×2; Q9967

== ENCOUNTER → 2024-06-17 | Outpatient (CLI) | payer MEDICARE, BC ==
[2024-06-17 16:11] LABS: African American GFR (CKD) 76 (>60 ml/min/1.73 sqM); Blood Urea Nitrogen 19 mg/dL (9-20); Non-African American GFR(CKD) 65 (>60 ml/min/1.73 sqM)
--- NOTE | 2024-06-17 18:13 | CT ---
EXAMINATION TYPE: CT chest w con DATE OF EXAM: 06/17/2024 4:52 PM COMPARISON: 04/29/2023. CLINICAL INDICATION: Male, 69 years old with history of R93.89 ABN DX;R06.02 SOB;J18.9 PNEUMONIA; PHH , SOB, pneumonia TECHNIQUE: Multiple axial images were obtained through the chest. Sagittal and coronal reformats were created for review. MIP was performed on a separate workstation. Contrast used:100 mL of Isovue 370 with IV Contrast (None if empty) Oral contrast used: (None if empty) CT DLP: 631.3 mGycm, Automated exposure control for dose reduction was used. FINDINGS: LUNGS/ PLEURA: Right posterior lung pleural calcifications. No evidence for focal consolidation, pneu mothorax or pleural effusion. No clinically significant pulmonary nodules identified. AIRWAY: Patent and unremarkable. HEART: The heart is mildly increased in size..Increased density within the coronary arteries may rela te to sclerosis versus vascular stents. MEDIASTINUM: No gross evidence of adenopathy. VASCULATURE: No aortic aneurysm. MUSCULOSKELETAL: Moderate disc degeneration changes are present throughout the thoracolumbar spine. B ridging osteophytes are seen along the anterior spine., Remote right rib injuries with callus formati on. SOFT TISSUES/LYMPH NODES: Unremarkable. LOWER NECK: No significant findings. UPPER ABDOMEN: Diffuse low-attenuation to the liver parenchyma. Splenule is present. Adenomatous hype rtrophy changes of the pancreas. IMPRESSION: 1. No evidence for acute thoracic process. No evidence for pneumonia. 2. Mild cardiomegaly. 3. Moderate to severe coronary artery atherosclerosis or systemic grafts. 4. Right pleural calcification correlate for history of asbestos exposure. 5. Hepatic steatosis 6. Diffuse idiopathic skeletal hyperostosis. Follow up recommendations for incidental pulmonary nodules, if there are any, are per [employer] [employer] or [employer]. https://radiopaedia.org/articles/hjhykknruk-ifuvnnn-cdzsvifhy-llozxj-dialfjtqlspnvky-[email or web address]?lang=us [facility], Workstation: [id number], 06/17/2024 6:11 PM
== END | disposition home or self-care (01) ==
LOC: RADCTMAIN 15:25
PROVIDERS: ATTEND Family Medicine
CPT/HCPCS: 36415; 71260; 82565; 84520

== ENCOUNTER 2024-10-17 00:21 | Emergency (ER) | payer MEDICARE, BC ==
[2024-10-17 00:29] VITALS: RESP 18; TEMP 97.5
[2024-10-17 01:22] LABS: Basophils % (A) 1 %; Eosinophils # (A) 0.1 k/uL (0-0.7); Eosinophils % (A) 2 %; HCT 44.6 % (39.0-53.0); HGB 14.7 gm/dL (13.0-17.5); Lymphocytes # (A) 1.6 k/uL (1.0-4.8); Lymphocytes % (A) 24 %; MCH 33.2 pg (25.0-35.0); MCV 100.6 fL (80.0-100.0); Mean Platelet Volume 6.8; Monocytes # (A) 0.5 k/uL (0-1.0); Monocytes % (A) 8 %; Neutrophils # (A) 4.2 k/uL (1.3-7.7); Neutrophils % (A) 63 %; Platelet Count 232 k/uL (150-450); RBC 4.44 m/uL (4.30-5.90); RDW 12.5 % (11.5-15.5); WBC 6.7 k/uL (3.8-10.6)
[2024-10-17 01:38] LABS: ALT 34 U/L (4-49); AST 29 U/L (17-59); African American GFR (CKD) 90 (>60 ml/min/1.73 sqM); Alkaline Phosphatase 55 U/L (38-126); Anion Gap 13 mmol/L; Blood Urea Nitrogen 16 mg/dL (9-20); Calcium 9.2 mg/dL (8.4-10.2); Carbon Dioxide 21 mmol/L (22-30); Chloride 101 mmol/L (98-107); Glucose 134 mg/dL (74-99); Non-African American GFR(CKD) 78 (>60 ml/min/1.73 sqM); Partial Thromboplastin Time 22.2 sec (22.0-30.0); Potassium 4.5 mmol/L (3.5-5.1); Prothrombin Time 10.6 sec (10.0-12.5); Sodium 135 mmol/L (137-145); Total Bilirubin 0.4 mg/dL (0.2-1.3); Total Protein 6.8 g/dL (6.3-8.2)
[2024-10-17 01:45] LABS: NT-Pro-B-Type Natriuretic Pept 214 pg/mL
--- NOTE | 2024-10-17 01:52 | XR ---
EXAM: XR Chest, 2 Views CLINICAL HISTORY: ITS.REASON XR Reason: Chest Pain TECHNIQUE: Frontal and lateral views of the chest. COMPARISON: 04/29/23 FINDINGS: Lungs: No consolidation. Pleural space: No pleural effusion or pneumothorax. Heart: No cardiomegaly or pulmonary vascular congestion. Bones/joints: No acute fracture. No dislocation. IMPRESSION: No evidence of acute cardiopulmonary disease.
[2024-10-17] MEDS: ASPIRIN 81 MG PO STA (02:49)
[2024-10-17] MEDS: NITROGLYCERIN SL TABS 0.4 MG TAB SUBLINGUAL STA (02:49)
[2024-10-17] MEDS: MORPHINE SULFATE 4 MG/ML SYRINGE IV STA (02:50)
--- NOTE | 2024-10-17 03:29 | ED ---
Chest Pain [facility] - General Chief Complaint: Chest Pain Stated Complaint: Chest pain Time Seen by Provider: 10/17/24 02:21 Source: patient Mode of arrival: wheelchair Limitations: no limitations - History of Present Illness Initial Comments: This patient is a 69-year-old man with history of previous [place]/stents, who presents to have evaluation of chest pain. Patient states that the pain has been intermittent going back approximately 3 to 4 days now. The patient states that symptoms were worse tonight and he had radiation of pain to the neck/jaw. The patient states that the pain did come on at rest. He took nitroglycerin which did improve the symptoms. MD Complaint: chest pain -: days(s) Onset: during rest Pain Location: substernal Pain Radiation: jaw/teeth Severity: moderate Quality: aching Consistency: intermittent, now resolved Improves With: nitroglycerin Worsens With: nothing Anginal Symptoms: nausea Treatments Prior to Arrival: aspirin, nitroglycerin - Related Data Home Medications Medication Instructions Recorded Confirmed Nitroglycerin Sl Tabs [Nitrostat] 0.4 mg SL Q5M PRN 01/15/15 10/22/24 Metoprolol Tartrate 25 mg PO BID 01/16/15 10/22/24 Spironolactone [Aldactone] 25 mg PO DAILY 01/16/15 10/22/24 Tamsulosin HCl [Flomax] 0.4 mg PO BID 07/05/19 10/22/24 lisinopriL 20 mg PO DAILY 07/05/19 10/22/24 Aspirin [Adult Low Dose Aspirin EC] 81 mg PO DAILY 04/04/23 10/22/24 Oxybutynin ER [Ditropan XL] 15 mg PO DAILY 04/04/23 10/22/24 Cyclobenzaprine [Flexeril] 10 mg PO HS 10/17/24 10/22/24 HYDROcodone/APAP 10-325MG [[place] 1 tab PO QID 10/17/24 10/22/24 10-325] Omeprazole 20 mg PO DAILY 10/17/24 10/22/24 Clopidogrel [Plavix] 75 mg PO DAILY 10/22/24 10/22/24 Previous Rx's Medication Instructions Recorded Atorvastatin [Lipitor] 80 mg PO DAILY #30 tab 10/18/24 Dapagliflozin Propanediol [Farxiga] 10 mg PO DAILY #30 tablet 10/23/24 Allergies Allergy/AdvReac Type Severity Reaction Status Date / Time Sulfa (Sulfonamide Allergy Rash/Hives Verified 10/22/24 08:28 Antibiotics) Review of Systems ROS Statement: Those systems with pertinent positive or pertinent negative responses have been documented in the HPI. ROS Other: All systems not noted in ROS Statement are negative. Constitutional: Denies: fever, chills Respiratory: Denies: cough, dyspnea Cardiovascular: Reports: chest pain. Denies: palpitations, orthopnea, edema, syncope Gastrointestinal: Reports: nausea. Denies: abdominal pain, vomiting, diarrhea Genitourinary: Denies: dysuria, hematuria Musculoskeletal: Denies: back pain Skin: Denies: rash Neurological: Denies: headache, weakness, numbness EKG Findings - EKG Results: EKG: interpreted by KAYLEEN, sinus rhythm (Rate 84 bpm), normal axis, normal QRS, normal ST/T Past Medical History Past Medical History: Coronary Artery Disease (CAD), Cancer, Chest Pain / Angina, Heart Failure, Fibromyalgia, Hyperlipidemia, Hypertension, Myocardial Infarction (WA), Musculoskeletal Disorder, Osteoarthritis (OA), Prostate Disorder Additional Past Medical History / Comment(s): Prostate cancer with radiation in 2015, BPH, arthritis in multiple joints, chronic low back pain with bilateral sciatica, Last Myocardial Infarction Date:: 2012 History of Any Multi-Drug Resistant Organisms: None Reported Past Surgical History: Back Surgery, Heart Catheterization, Heart Catheterization With Stent, Joint Replacement, Orthopedic Surgery Additional Past Surgical History / Comment(s): 2014 cardiac cath, 2012 PCI with stents to LAD, L knee arthroscopy, total R knee, L shoulder arthroscopy, L carpal tunnel release, colonoscopy. pain clinic procedures Past Anesthesia/Blood Transfusion Reactions: No Reported Reaction Additional Past Anesthesia/Blood Transfusion Reaction / Comment(s): no hx blood transfusion Date of Last Stent Placement:: 2012 Past Psychological History: No Psychological Hx Reported Smoking Status: Never smoker Past Alcohol Use History: Occasional Past Drug Use History: Marijuana - Past Family History Father Family Medical History: Cancer Additional Family Medical History / Comment(s): kidney/bone cancer- of at the age of 59yrs. Mother Family Medical History: Musculoskeletal Disorder, Neurologic Disorder Additional Family Medical History / Comment(s): Mother of Ghada Braeden's disease General Exam Limitations: no limitations General appearance: alert, in no apparent distress Head exam: Present: atraumatic, normocephalic Eye exam: Present: normal appearance. Absent: scleral icterus, conjunctival injection ENT exam: Present: normal oropharynx Neck exam: Present: normal inspection Respiratory exam: Present: normal lung sounds bilaterally. Absent: respiratory distress, wheezes, rales, rhonchi, stridor, accessory muscle use Cardiovascular Exam: Present: regular rate, normal rhythm, normal heart sounds. Absent: systolic murmur, diastolic murmur, rubs, gallop GI/Abdominal exam: Present: soft. Absent: distended, tenderness, guarding, rebound, rigid, mass Extremities exam: Present: normal inspection, normal capillary refill. Absent: pedal edema, calf tenderness Back exam: Present: normal inspection. Absent: CVA tenderness (R), CVA tenderness (L) Neurological exam: Present: alert Skin exam: Present: warm, dry, intact, normal color. Absent: rash Course Vital Signs 10/17/24 10/17/24 10/17/24 00:27 02:50 03:41 Temperature 97.5 F L Pulse Rate 89 74 70 Respiratory 18 18 18 Rate Blood Pressure 118/74 132/98 113/70 O2 Sat by Pulse 95 98 98 Oximetry Chest Pain MDM - MDM The patient had chest x-ray that I interpreted as negative for acute infiltrate, pneumothorax, congestive heart failure. Was pt. sent in by a medical professional or institution (CHELA Lucero, COSMETICS AND TOILETRIES SALESPERSON, urgent care, hospital, or senior living...) When possible be specific @ -[No] Did you speak to anyone other than the patient for history (EMS, parent, family, police, friend...)? What history was obtained from this source @ -[No] Did you review nursing and triage notes (agree or disagree)? Why? @ -[I reviewed and agree with nursing and triage notes] Were old charts reviewed (outside hosp., previous admission, EMS record, old EKG, old radiological studies, urgent care reports/EKG's, senior living records)? Report findings @ -[No old charts were reviewed] Differential Diagnosis (chest pain, altered mental status, abdominal pain women, abdominal pain men, vaginal bleeding, weakness, fever, dyspnea, syncope, headache, dizziness, GI bleed, back pain, seizure, CVA, palpatations, mental health, musculoskeletal)? @ -Differential Chest Pain: Stable Angina, Unstable Angina, STEMI, NSTEMI Aortic Dissection, Pneumothorax, Musculoskeletal, Esophageal Spasm GERD, Cholecystitis, Pancreatitis, Zoster, this is not meant to be an all-inclusive list. EKG interpreted by me (3pts min.). @ -[I interpreted as above X-rays interpreted by me (1pt min.). @ -[I interpreted as above CT interpreted by me (1pt min.). @ -[None done] U/S interpreted by me (1pt. min.). @ -[None done] What testing was considered but not performed or refused? (CT, X-rays, U/S, labs)? Why? @ -[None] What meds were considered but not given or refused? Why? @ -[None] Did you discuss the management of the patient with other professionals (professionals i.e. , PA, COSMETICS AND TOILETRIES SALESPERSON, lab, RT, psych nurse, social services counselor, it infrastructure specialist, teacher, chairman and chief executive officer, transplant case manager)? Give summary @ -[No] Was smoking cessation discussed for >3mins.? @ -[No] Was critical care preformed (if so, how long)? @ -[No] Were there social determinants of health that impacted care today? How? (Homelessness, low income, unemployed, alcoholism, drug addiction, transportation, low edu. Level, literacy, decrease access to med. care, care home, rehab)? @ -[No] Was there de-escalation of care discussed even if they declined (Discuss DNR or withdrawal of care, Hospice)? DNR status @ -[No] What co-morbidities impacted this encounter? (DM, HTN, Smoking, COPD, CAD, Cancer, CVA, ARF, Chemo, Hep., AIDS, mental health diagnosis, sleep apnea, morbid obesity)? @ -[Hypertension, history of CAD Was patient admitted / discharged? Hospital course, mention meds given and route, prescriptions, significant lab abnormalities, going to OR and other pertinent info. @ -[Patient is 69-year-old man who presents to have evaluation of chest pain which sounds typical for angina/WA. The patient's initial workup is negative but he does have risk factors and prior history and therefore recommended patient to have at least second troponin, preferably to have admission for cardiology consultation, serial cardiac enzymes, telemetry monitoring. The patient did state that he was feeling better and wanted to go home. I discussed that he was leaving AGAINST MEDICAL ADVICE and the patient still decided to go home and to follow as outpatient. He will return should symptoms recur. Undiagnosed new problem with uncertain prognosis? @ -[No] Drug Therapy requiring intensive monitoring for toxicity (Heparin, Nitro, Insulin, Cardizem)? @ -[No] Were any procedures done? @ -[No] Diagnosis/symptom? @ -[Acute chest pain Acute, or Chronic, or Acute on Chronic? @ -[Acute Uncomplicated (without systemic symptoms) or Complicated (systemic symptoms)? @ -[Uncomplicated Side effects of treatment? @ -[No] Exacerbation, Progression, or Severe Exacerbation? @ -[No] Poses a threat to life or bodily function? How? (Chest pain, USA, [place], pneumonia, PE, COPD, DKA, ARF, appy, cholecystitis, CVA, Diverticulitis, Homicidal, Suicidal, threat to staff... and all critical care pts) @ -[Yes there is risk that this chest pain is cardiac in nature. All treatments are based on ideal body weight as in ED triage Disposition Clinical Impression: Chest pain Disposition: HOME SELF-CARE Condition: Fair Instructions (If sedation given, give patient instructions): Chest Pain (ED) Is patient prescribed a controlled substance at d/c from ED?: No Referrals: Chase Castro MD [Primary Care Provider] - 1-2 days Sam Haines MD [Medical Doctor] - 1-2 days
[2024-10-17 03:44] VITALS: BP 113/70; PULSE 70
== END 2024-10-17 03:44 | disposition home or self-care (01) ==
LOC: EC 00:21
DX: R07.2 Precordial pain (principal); I11.9 Hypertensive heart disease without heart failure; I25.10 Atherosclerotic heart disease of native coronary artery without angina pectoris; Z88.2 Allergy status to sulfonamides
CPT/HCPCS: 36415; 71046; 80053; 83735; 83880; 84484; 85025; 85610; 85730; 93005; 99285

== ENCOUNTER 2024-10-17 09:51 | Inpatient (IN) | payer MEDICARE, BC ==
[2024-10-17 10:29] LABS: Basophils % (A) 0 %; Eosinophils # (A) 0.2 k/uL (0-0.7); Eosinophils % (A) 2 %; HCT 43.4 % (39.0-53.0); HGB 13.9 gm/dL (13.0-17.5); Lymphocytes % (A) 13 %; MCHC 32.1 g/dL (31.0-37.0); MCV 99.8 fL (80.0-100.0); Mean Platelet Volume 7.3; Monocytes # (A) 0.6 k/uL (0-1.0); Monocytes % (A) 7 %; Neutrophils # (A) 5.6 k/uL (1.3-7.7); Neutrophils % (A) 74 %; Platelet Count 240 k/uL (150-450); RBC 4.35 m/uL (4.30-5.90); RDW 12.5 % (11.5-15.5); WBC 7.6 k/uL (3.8-10.6)
[2024-10-17 10:40] LABS: ALT 34 U/L (4-49); African American GFR (CKD) >90 (>60 ml/min/1.73 sqM); Albumin 3.9 g/dL (3.5-5.0); Anion Gap 10 mmol/L; Blood Urea Nitrogen 20 mg/dL (9-20); Calcium 9.1 mg/dL (8.4-10.2); Carbon Dioxide 21 mmol/L (22-30); Chloride 102 mmol/L (98-107); Glucose 163 mg/dL (74-99); Non-African American GFR(CKD) 85 (>60 ml/min/1.73 sqM); Sodium 133 mmol/L (137-145); Total Bilirubin 0.7 mg/dL (0.2-1.3); Total Protein 6.8 g/dL (6.3-8.2)
[2024-10-17 10:45] LABS: AST 30 U/L (17-59); Alkaline Phosphatase 52 U/L (38-126); Magnesium 1.9 mg/dL (1.6-2.3)
[2024-10-17 10:48] LABS: Prothrombin Time 10.9 sec (10.0-12.5)
[2024-10-17 10:49] LABS: NT-Pro-B-Type Natriuretic Pept 141 pg/mL
--- NOTE | 2024-10-17 10:50 | XR ---
EXAMINATION TYPE: XR chest 2V DATE OF EXAM: 10/17/2024 10:35 AM COMPARISON: 10/17/2024 CLINICAL INDICATION: Male, 69 years old with history of Chest Pain, TECHNIQUE: XR chest 2V view(s) obtained. FINDINGS: The heart size is normal. The pulmonary vasculature is normal. Atelectasis at the right costophrenic angle. IMPRESSION: 1. Atelectasis at the right costophrenic angle. [facility], , 10/17/2024 10:48 AM
[2024-10-17 10:52] LABS: Partial Thromboplastin Time 18.8 sec (22.0-30.0)
--- NOTE | 2024-10-17 13:06 | ED ---
Chest Pain HPI - General Chief Complaint: Chest Pain Stated Complaint: chest pain Time Seen by Provider: 10/17/24 10:05 Source: patient Mode of arrival: wheelchair Limitations: no limitations - History of Present Illness Initial Comments: 69-year-old male with past medical history of coronary artery disease, hypertension, hyperlipidemia with 1 stent who presents emergency department with chest pain. States that the pain has been going on intermittently for the past couple of days. He did come to the emergency department last night however left AGAINST MEDICAL ADVICE. Presents today as the pain was significant this morning. Describes a right sided chest pain which radiates across his chest and into his jaw. States that he has pain going into his right arm. He does have history of coronary disease with 1 stent. Denies any history of pulmonary issues. No history of DVT or PE. No calf pain or swelling. No numbness, tingling or weakness in his extremities. States the pain has been constant however waxes and wanes in severity. He took an NSAID this morning with some relief. He denies shortness of breath. No nausea or vomiting. Grades the pain is 10 out of 10. No other alleviating, precipitating or modifying factors - Related Data Home Medications Medication Instructions Recorded Confirmed Nitroglycerin Sl Tabs [Nitrostat] 0.4 mg SL Q5M PRN 01/15/15 04/29/23 Metoprolol Tartrate 25 mg PO BID 01/16/15 04/29/23 Spironolactone [Aldactone] 25 mg PO DAILY 01/16/15 04/29/23 Tamsulosin HCl [Flomax] 0.4 mg PO BID 07/05/19 04/29/23 lisinopriL 20 mg PO DAILY 07/05/19 04/29/23 DULoxetine HCL [Cymbalta] 60 mg PO DAILY 12/21/22 04/29/23 Sildenafil Citrate 100 mg PO DAILY PRN 12/21/22 04/29/23 Aspirin [Adult Low Dose Aspirin EC] 81 mg PO DAILY 04/04/23 04/29/23 Atorvastatin [Lipitor] 80 mg PO DAILY 04/04/23 04/29/23 Cyclobenzaprine [Flexeril] 5 mg PO BID PRN 04/04/23 04/29/23 Gabapentin [Neurontin] 200 mg PO BID 04/04/23 04/29/23 Oxybutynin ER [Ditropan XL] 15 mg PO DAILY 04/04/23 04/29/23 Previous Rx's Medication Instructions Recorded HYDROcodone/APAP 10-325MG [[place] 1 tab PO Q6HR PRN #28 tab 04/15/23 10-325] Sennosides-Docusate Sodium 1 tab PO BID #60 tablet 04/15/23 [Senokot-S] Allergies Allergy/AdvReac Type Severity Reaction Status Date / Time Sulfa (Sulfonamide Allergy Rash/Hives Verified 10/17/24 10:03 Antibiotics) Review of Systems ROS Statement: Those systems with pertinent positive or pertinent negative responses have been documented in the HPI. ROS Other: All systems not noted in ROS Statement are negative. Past Medical History Past Medical History: Coronary Artery Disease (CAD), Cancer, Chest Pain / Angina, Heart Failure, Fibromyalgia, Hyperlipidemia, Hypertension, Myocardial Infarction (IA), Musculoskeletal Disorder, Osteoarthritis (OA), Prostate Disorder Additional Past Medical History / Comment(s): Prostate cancer with radiation in 2015, BPH, arthritis in multiple joints, chronic low back pain with bilateral sciatica, Last Myocardial Infarction Date:: 2012 History of Any Multi-Drug Resistant Organisms: None Reported Past Surgical History: Back Surgery, Heart Catheterization, Heart Catheterization With Stent, Joint Replacement, Orthopedic Surgery Additional Past Surgical History / Comment(s): 2014 cardiac cath, 2012 PCI with stents to LAD, L knee arthroscopy, total R knee, L shoulder arthroscopy, L carpal tunnel release, colonoscopy. pain clinic procedures Past Anesthesia/Blood Transfusion Reactions: No Reported Reaction Additional Past Anesthesia/Blood Transfusion Reaction / Comment(s): no hx blood transfusion Date of Last Stent Placement:: 2012 Past Psychological History: No Psychological Hx Reported Smoking Status: Never smoker Past Alcohol Use History: Occasional Past Drug Use History: Marijuana - Past Family History Father Family Medical History: Cancer Additional Family Medical History / Comment(s): kidney/bone cancer- of at the age of 59yrs. Mother Family Medical History: Musculoskeletal Disorder, Neurologic Disorder Additional Family Medical History / Comment(s): Mother of Ghada Braeden's disease General Exam Limitations: no limitations General appearance: alert, in no apparent distress Head exam: Present: atraumatic, normocephalic, normal inspection Eye exam: Present: normal appearance, PERRL, EOMI. Absent: scleral icterus, conjunctival injection, periorbital swelling ENT exam: Present: normal exam, mucous membranes moist Neck exam: Present: normal inspection. Absent: tenderness, meningismus, lymphadenopathy Respiratory exam: Present: normal lung sounds bilaterally. Absent: respiratory distress, wheezes, rales, rhonchi, stridor Cardiovascular Exam: Present: regular rate, normal rhythm, normal heart sounds. Absent: systolic murmur, diastolic murmur, rubs, gallop, clicks GI/Abdominal exam: Present: soft, normal bowel sounds. Absent: distended, tenderness, guarding, rebound, rigid Extremities exam: Present: normal inspection, full ROM, normal capillary refill. Absent: tenderness, pedal edema, joint swelling, calf tenderness Back exam: Present: normal inspection Neurological exam: Present: alert, oriented X3, CN II-XII intact Psychiatric exam: Present: normal affect, normal mood Skin exam: Present: warm, dry, intact, normal color. Absent: rash Course Vital Signs 10/17/24 10/17/24 10:01 13:59 Temperature 98 F 97.9 F Pulse Rate 64 57 L Respiratory 18 18 Rate Blood Pressure 160/84 124/80 O2 Sat by Pulse 96 95 Oximetry Chest Pain MDM - MDM Was pt. sent in by a medical professional or institution (, PA, GRINDING MACHINE OPERATOR, urgent care, hospital, or halfway...) When possible be specific @ -[No] Did you speak to anyone other than the patient for history (EMS, parent, family, police, friend...)? What history was obtained from this source @ -[No] Did you review nursing and triage notes (agree or disagree)? Why? @ -[I reviewed and agree with nursing and triage notes] Were old charts reviewed (outside hosp., previous admission, EMS record, old EKG, old radiological studies, urgent care reports/EKG's, halfway records)? Report findings @ -[No old charts were reviewed] Differential Diagnosis (chest pain, altered mental status, abdominal pain women, abdominal pain men, vaginal bleeding, weakness, fever, dyspnea, syncope, headache, dizziness, GI bleed, back pain, seizure, CVA, palpatations, mental health, musculoskeletal)? @ -[not applicable] EKG interpreted by me (3pts min.). @ -Completed at 1009 demonstrates sinus rhythm with a rate of 61. NM interval 189. QRS 109. QTc of 385. Mild J-point elevation in lead III. Completed at 1048 and demonstrates sinus rhythm with a rate of 61. NM interval 181. QRS 122. QTc 393. Mild interventricular conduction delay. Mild J-point elevation in leads III. Repeat at 1342 demonstrates sinus bradycardia with a rate of 57. NM interval 188. QRS 114. QTc of 384. Continued J-point elevation in lead III. No reciprocal changes X-rays interpreted by me (1pt min.). @ -[None done] CT interpreted by me (1pt min.). @ -[None done] U/S interpreted by me (1pt. min.). @ -[None done] What testing was considered but not performed or refused? (CT, X-rays, U/S, labs)? Why? @ -[None] What meds were considered but not given or refused? Why? @ -[None] Did you discuss the management of the patient with other professionals (professionals i.e. , PA, GRINDING MACHINE OPERATOR, lab, RT, psych nurse, social service liaison, monorail operator, teacher, railway patrol officer, casework manager)? Give summary @ -[No] Was smoking cessation discussed for >3mins.? @ -[No] Was critical care preformed (if so, how long)? @ -[No] Were there social determinants of health that impacted care today? How? (Homelessness, low income, unemployed, alcoholism, drug addiction, transportation, low edu. Level, literacy, decrease access to med. care, fpc, rehab)? @ -[No] Was there de-escalation of care discussed even if they declined (Discuss DNR or withdrawal of care, Hospice)? DNR status @ -[No] What co-morbidities impacted this encounter? (DM, HTN, Smoking, COPD, CAD, Cancer, CVA, ARF, Chemo, Hep., AIDS, mental health diagnosis, sleep apnea, morbid obesity)? @ -[None] Was patient admitted / discharged? Hospital course, mention meds given and route, prescriptions, significant lab abnormalities, going to OR and other pertinent info. @ -[hospital course] Undiagnosed new problem with uncertain prognosis? @ -[No] Drug Therapy requiring intensive monitoring for toxicity (Heparin, Nitro, Insulin, Cardizem)? @ -[No] Were any procedures done? @ -[No] Diagnosis/symptom? @ -[default] Acute, or Chronic, or Acute on Chronic? @ -[default] Uncomplicated (without systemic symptoms) or Complicated (systemic symptoms)? @ -[default] Side effects of treatment? @ -[No] Exacerbation, Progression, or Severe Exacerbation? @ -[No] Poses a threat to life or bodily function? How? (Chest pain, [place], [place], pneumonia, PE, COPD, DKA, ARF, appy, cholecystitis, CVA, Diverticulitis, Homicidal, Suicidal, threat to staff... and all critical care pts) @ -[No] Disposition Clinical Impression: Chest pain Disposition: ADMITTED IP TO THIS [facility] Condition: Serious Is patient prescribed a controlled substance at d/c from ED?: No Referrals: Chase Castro MD [Primary Care Provider] - 1-2 days Time of Disposition: 14:02 Decision to Admit Reason: Admit from EC Decision Date: 10/17/24 Decision Time: 14:02
[2024-10-17] MEDS: ASPIRIN 81 MG PO STA (14:07)
[2024-10-17] MEDS ORDERED: NALOXONE 0.4 MG/ML 1 ML VIAL IV PRN (14:08)
[2024-10-17] MEDS: MORPHINE SULFATE 4 MG/ML SYRINGE IVP STA (14:09)
[2024-10-17] MEDS: NITROGLYCERIN OINT 1 INCH/GM PACKET TOPICAL STA (14:11)
[2024-10-17] MEDS ORDERED: HEPARIN SODIUM 1,000 UN/ML (10ML VL) IV PRN (14:55)
--- NOTE | 2024-10-17 15:07 | P.HPIM ---
History of Present Illness Patient pleasant 69-year-old male came with complaints of chest pain sharp in nature radiating to the back between the shoulder blades and bilateral jaw pain going on for 4 days constant in nature not associated diaphoresis shortness of breath lightheadedness. Patient came to ER yesterday was asked to follow-up with corporate licensed broker. Patient continued to have pain because of which patient came back to ER today. Patient is an EKG which showed some mild nonspecific ST depressions in lead I which were not present on the old EKGs. Chest x-ray is within normal notes patient has history of coronary disease with stents in 2002. His pain is not similar to the pain when he had myocardial infarction and stent placement. Patient denied any fever chill cough chest pain is nonpleuritic not associate with food. REVIEW OF SYSTEMS: All other systems are negative except those mentioned in the HPI PHYSICAL EXAMINATION: GENERAL: The patient is alert and oriented x3, not in any acute distress. Well developed, well nourished. Obese HEENT: Pupils are round and equally reacting to light. EOMI. No scleral icterus. No conjunctival pallor. Normocephalic, atraumatic. No pharyngeal erythema. No thyromegaly. CARDIOVASCULAR: S1 and S2 present. No murmurs, rubs, or gallops. PULMONARY: Chest is clear to auscultation, no wheezing or crackles. ABDOMEN: Soft, nontender, nondistended, normoactive bowel sounds. No palpable organomegaly. MUSCULOSKELETAL: No joint swelling or deformity. EXTREMITIES: No cyanosis, clubbing, or pedal edema. NEUROLOGICAL: Gross neurological examination did not reveal any focal deficits. SKIN: No rashes. Assessment and plan -Chest pain will rule out acute coronary syndromes. Possibility of unstable angina patient will be heparinized cardiology will be consulted. -Coronary disease with stents in the past patient will be resumed on his cardiac medications once verified -Fibromyalgia -Obesity -Hyperlipidemia -Hypertension -Benign prostatic hypertrophy DVT prophylaxis: Patient will be on IV heparin Past Medical History Past Medical History: Coronary Artery Disease (CAD), Cancer, Chest Pain / Angina, Heart Failure, Fibromyalgia, Hyperlipidemia, Hypertension, Myocardial Infarction (SC), Musculoskeletal Disorder, Osteoarthritis (OA), Prostate Disorder Additional Past Medical History / Comment(s): Prostate cancer with radiation in 2016, BPH, arthritis in multiple joints, chronic low back pain with bilateral sciatica, Last Myocardial Infarction Date:: 2012 History of Any Multi-Drug Resistant Organisms: None Reported Past Surgical History: Back Surgery, Heart Catheterization, Heart Catheterization With Stent, Joint Replacement, Orthopedic Surgery Additional Past Surgical History / Comment(s): 2014 cardiac cath, 2012 PCI with stents to LAD, L knee arthroscopy, total R knee, L shoulder arthroscopy, L carpal tunnel release, colonoscopy. pain clinic procedures Past Anesthesia/Blood Transfusion Reactions: No Reported Reaction Additional Past Anesthesia/Blood Transfusion Reaction / Comment(s): no hx blood transfusion Date of Last Stent Placement:: 2012 Past Psychological History: No Psychological Hx Reported Smoking Status: Never smoker Past Alcohol Use History: Occasional Past Drug Use History: Marijuana - Past Family History Father Family Medical History: Cancer Additional Family Medical History / Comment(s): kidney/bone cancer- of at the age of 59yrs. Mother Family Medical History: Musculoskeletal Disorder, Neurologic Disorder Additional Family Medical History / Comment(s): Mother of Ghada Braeden's disease Medications and Allergies Home Medications Medication Instructions Recorded Confirmed Type Nitroglycerin Sl Tabs [Nitrostat] 0.4 mg SL Q5M PRN 01/15/15 04/29/23 History Metoprolol Tartrate 25 mg PO BID 01/16/15 04/29/23 History Spironolactone [Aldactone] 25 mg PO DAILY 01/16/15 04/29/23 History Tamsulosin HCl [Flomax] 0.4 mg PO BID 07/05/19 04/29/23 History lisinopriL 20 mg PO DAILY 07/05/19 04/29/23 History DULoxetine HCL [Cymbalta] 60 mg PO DAILY 12/21/22 04/29/23 History Sildenafil Citrate 100 mg PO DAILY PRN 12/21/22 04/29/23 History Aspirin [Adult Low Dose Aspirin EC] 81 mg PO DAILY 04/04/23 04/29/23 History Atorvastatin [Lipitor] 80 mg PO DAILY 04/04/23 04/29/23 History Cyclobenzaprine [Flexeril] 5 mg PO BID PRN 04/04/23 04/29/23 History Gabapentin [Neurontin] 200 mg PO BID 04/04/23 04/29/23 History Oxybutynin ER [Ditropan XL] 15 mg PO DAILY 04/04/23 04/29/23 History HYDROcodone/APAP 10-325MG [[place] 1 tab PO Q6HR PRN #28 tab 04/15/23 04/29/23 Rx 10-325] Sennosides-Docusate Sodium 1 tab PO BID #60 tablet 04/15/23 04/29/23 Rx [Senokot-S] Allergies Allergy/AdvReac Type Severity Reaction Status Date / Time Sulfa (Sulfonamide Allergy Rash/Hives Verified 10/17/24 10:03 Antibiotics) Physical Exam Vitals: Vital Signs Temp Pulse Resp BP Pulse Ox 10/17/24 13:59 97.9 F 57 L 18 124/80 95 10/17/24 10:01 98 F 64 18 160/84 96 Intake and Output 10/17/24 10/17/24 10/17/24 06:59 14:59 22:59 Other: Weight 131.542 kg Results CBC & Chem 7: 10/17/24 10:07 10/17/24 10:06 Labs: Abnormal Lab Results - Last 24 Hours (Table) 10/17/24 10/17/24 10/17/24 Range/Units 10:06 10:06 14:14 APTT 18.8 L (22.0-30.0) sec Sodium 133 L (137-145) mmol/L Carbon Dioxide 21 L (22-30) mmol/L Glucose 163 H (74-99) mg/dL Troponin I 0.571 H* (0.000-0.034) ng/mL
[2024-10-17] MEDS ORDERED: NITROGLYCERIN SL TABS 0.4 MG TAB SUBLINGUAL PRN ×2 (15:35→18:18)
[2024-10-17] MEDS ORDERED: ALPRAZolam 0.5 MG TAB PO PRN (15:35)
[2024-10-17] MEDS ORDERED: ALPRAZolam 0.25 MG TAB PO PRN (15:35)
[2024-10-17] MEDS: ASPIRIN 325 MG TAB PO STA (15:58)
[2024-10-17] MEDS: HYDROmorphone 1 MG/ML 1 ML SYRINGE IVP STA (16:05)
[2024-10-17] MEDS: ATORVASTATIN 80 MG TAB PO STA (16:08)
[2024-10-17] MEDS: HEPARIN SOD,PORK IN 0.45% NACL 25,000 UNIT in 0.45% NACL 1 250ML.BAG IV SCH (16:12)
[2024-10-17] MEDS: HEPARIN SODIUM 1,000 UN/ML (10ML VL) IV ONE (16:13)
--- NOTE | 2024-10-17 16:17 | P.CRDCN ---
History of Present Illness History of present illness: HISTORY OF PRESENTING ILLNESS This is a pleasant 69-year-old with past medical history significant for hypertension, hyperlipidemia, CAD with PCI of the LAD, prostate cancer in remission. He follows in the office with Dr. De Leon. He states he had been feeling okay and then last night developed substernal chest pain radiating across his chest and into his back. He associated shortness of breath. He came to emergency department and original troponin normal and EKG unrevealing and pat ient left AGAINST MEDICAL ADVICE. Patient went to sleep and then woke up with recurrence of chest pain which was worse this morning and therefore came back to emergency department. He states chest pain has been constant approximately an 8 out of 10 with associated nausea this morning which nausea has improved and some shortness of breath. He states this feels similar to when he had his CT before. EKG shows normal sinus rhythm with some T wave inversions, ST depressions in 1 and aVL. He was given nitroglycerin without any significant improvement. Initial troponin 0.017 however increased up to 0.5 REVIEW OF SYSTEMS At the time of my exam: CONSTITUTIONAL: Denies fever or chills. CARDIOVASCULAR: +chest pain, +shortness of breath, no orthopnea, PND or palpitations. RESPIRATORY: Denies cough. GASTROINTESTINAL: Denies abdominal pain, diarrhea, constipation, nausea or vomiting. MUSCULOSKELETAL: Denies myalgias. NEUROLOGIC: Denies numbness, tingling or weakness. ENDOCRINE: Denies fatigue, weight change, polydipsia or polyurina. GENITOURINARY: Denies burning, hematuria or urgency with micturation. HEMATOLOGIC: Denies history of anemia or bleeding. PHYSICAL EXAMINATION Vital signs reviewed. CONSTITUTIONAL: No apparent distress. HEENT: Head is normocephalic. Pupils are equal, round. Sclerae anicteric. Mucous membranes of the mouth are moist. No JVD. No carotid bruit. CHEST EXAMINATION: Lungs are clear to auscultation. No chest wall tenderness is noted on palpation or with deep breathing. HEART EXAMINATION: Regular rate and rhythm. S1, S2 heard. No murmurs, gallops or rub. ABDOMEN: Soft, nontender. Positive bowel sounds. EXTREMITIES: 2+ peripheral pulses, no lower extremity edema and no calf tenderness. NEUROLOGIC EXAMINATION: Patient is awake, alert and oriented x3. ASSESSMENT Non-STEMI likely type I mechanism Chest pain, nausea, shortness of breath likely related to acute coronary syndrome Hypertension Hyperlipidemia CAD with prior PCI of LAD Obesity PLAN Patient with typical symptoms and EKG unrevealing other than mild T wave inversions, ST depressions 1 and aVL. Concern of possible circumflex disease and patient having ongoing chest pain and therefore discussed urgent heart catheterization. Risks and benefits discussed with patient and patient was ag reeable. Check 2D echo. Further recommendations to follow. Past Medical History Past Medical History: Coronary Artery Disease (CAD), Cancer, Chest Pain / An coco, Heart Failure, Fibromyalgia, Hyperlipidemia, Hypertension, Myocardial Infarction (CT), Musculoskeletal Disorder, Osteoarthritis (OA), Prostate Disorder Additional Past Medical History / Comment(s): Prostate cancer with radiation in 2015, BPH, arthritis in multiple joints, chronic low back pain with bilateral sciatica, Last Myocardial Infarction Date:: 2012 History of Any Multi-Drug Resistant Organisms: None Reported Past Surgical History: Back Surgery, Heart Catheterization, Heart Catheter ization With Stent, Joint Replacement, Orthopedic Surgery Additional Past Surgical History / Comment(s): 2014 cardiac cath, 2012 PCI with stents to LAD, L knee arthroscopy, total R knee, L shoulder arthroscopy, L carpal tunnel release, colonoscopy. pain clinic procedures Past Anesthesia/Blood Transfusion Reactions: No Reported Reaction Additional Past Anesthesia/Blood Transfusion Reaction / Comment(s): no hx blood transfusion Date of Last Stent Placement:: 2012 Past Psychological History: No Psychological Hx Reported Smoking Status: Never smoker Past Alcohol Use History: Occasional Past Drug Use History: Marijuana - Past Family History Father Family Medical History: Cancer Additional Family Medical History / Comment(s): kidney/bone cancer- of at the age of 59yrs. Mother Family Medical History: Musculoskeletal Disorder, Neurologic Disorder Additional Family Medical History / Comment(s): Mother of Ghada Braeden's disease Medications and Allergies Home Medications Medication Instructions Recorded Confirmed Type Nitroglycerin Sl Tabs [Nitrostat] 0.4 mg SL Q5M PRN 01/15/15 10/17/24 History Metoprolol Tartrate 25 mg PO BID 01/16/15 10/17/24 History Spironolactone [Aldactone] 25 mg PO DAILY 01/16/15 10/17/24 History Tamsulosin HCl [Flomax] 0.4 mg PO BID 07/05/19 10/17/24 History lisinopriL 20 mg PO DAILY 07/05/19 10/17/24 History Aspirin [Adult Low Dose Aspirin EC] 81 mg PO DAILY 04/04/23 10/17/24 History Oxybutynin ER [Ditropan XL] 15 mg PO DAILY 04/04/23 10/17/24 History Cyclobenzaprine [Flexeril] 10 mg PO HS 10/17/24 10/17/24 History HYDROcodone/APAP 10-325MG [[place] 1 tab PO QID 10/17/24 10/17/24 History 10-325] Omeprazole 20 mg PO DAILY 10/17/24 10/17/24 History Rosuvastatin Calcium [Crestor] 40 mg PO DAILY 10/17/24 10/17/24 History Allergies Allergy/AdvReac Type Severity Reaction Status Date / Time Sulfa (Sulfonamide Allergy Rash/Hives Verified 10/17/24 15:22 Antibiotics) Physical Exam Vitals: Vital Signs Temp Pulse Resp BP Pulse Ox 10/17/24 13:59 97.9 F 57 L 18 124/80 95 10/17/24 10:01 98 F 64 18 160/84 96 Intake and Output 10/17/24 10/17/24 10/17/24 06:59 14:59 22:59 Other: Weight 131.542 kg Results 10/17/24 10:07 10/17/24 10:06 Cardiac Enzymes 10/17/24 10/17/24 10/17/24 Range/Units 10:06 10:06 14:14 AST 30 (17-59) U/L Troponin I 0.017 0.571 H* (0.000-0.034) ng/mL Coagulation 10/17/24 Range/Units 10:06 PT 10.9 (10.0-12.5) sec APTT 18.8 L (22.0-30.0) sec CBC 10/17/24 Range/Units 10:07 WBC 7.6 (3.8-10.6) k/uL RBC 4.35 (4.30-5.90) m/uL Hgb 13.9 (13.0-17.5) gm/dL Hct 43.4 (39.0-53.0) % Plt Count 240 (150-450) k/uL Comprehensive Metabolic Panel 10/17/24 Range/Units 10:06 Sodium 133 L (137-145) mmol/L Potassium 5.0 (3.5-5.1) mmol/L Chloride 102 (98-107) mmol/L Carbon Dioxide 21 L (22-30) mmol/L BUN 20 (9-20) mg/dL Creatinine 0.93 (0.66-1.25) mg/dL Glucose 163 H (74-99) mg/dL Calcium 9.1 (8.4-10.2) mg/dL AST 30 (17-59) U/L ALT 34 (4-49) U/L Alkaline Phosphatase 52 (38-126) U/L Total Protein 6.8 (6.3-8.2) g/dL Albumin 3.9 (3.5-5.0) g/dL Current Medications Generic Name Dose Route Start Last Admin Trade Name Freq PRN Reason Stop Dose Admin Alprazolam 0.25 mg 10/17/24 15:35 Alprazolam 0.25 Mg Tab PO Q6HR PRN Mild Anxiety Alprazolam 0.5 mg 10/17/24 15:35 Alprazolam 0.5 Mg Tab PO Q6HR PRN Moderate Anxiety Heparin Sodium (Porcine) 0 unit 10/17/24 14:55 Heparin Sodium 1,000 Un/Ml (10ml Vl) IV PER PROTOCOL PRN Low PTT Protocol Heparin Sodium/Sodium Chloride 250 mls @ 9.997 mls/hr 10/17/24 15:00 10/17/24 16:12 25,000 unit/ Sodium Chloride IV 7.6 units/kg/hr .Q24H RANJANA 9.997 mls/hr Administration Protocol 7.6 UNITS/KG/HR Heparin Sodium (Porcine) 10, 1,001 mls @ 999 mls/hr 10/18/24 07:00 000 unit/ Sodium Chloride IRRIGATION 10/18/24 23:00 ONCE PRN INTRA-OP Heparin Sodium (Porcine) 2,500 250.5 mls @ 250 mls/hr 10/18/24 07:00 unit/ Sodium Chloride IRRIGATION 10/18/24 23:00 ONCE PRN INTRA-OP Sodium Chloride 1,000 ml/ IV 1,000 mls @ 131.542 mls/hr 10/17/24 15:45 Solution IV .Q7H37M RANJANA 1 ML/KG/HR Morphine Sulfate 4 mg 10/17/24 14:08 Morphine Sulfate 4 Mg/Ml Syringe IV Q4HR PRN Severe Pain (Scale 7 to 10) Naloxone HCl 0.2 mg 10/17/24 14:08 Naloxone 0.4 Mg/Ml 1 Ml Vial IV Q2M PRN Opioid Reversal Nitroglycerin 0.4 mg 10/17/24 15:35 Nitroglycerin Sl Tabs 0.4 Mg Tab SUBLINGUAL Q5M PRN Chest Pain Intake and Output 10/17/24 10/17/24 10/17/24 06:59 14:59 22:59 Other: Weight 131.542 kg Patient Weight 10/18/24 06:59 Weight 131.542 kg 10/17/24 10:07 10/17/24 10:06
[2024-10-17] MEDS: SODIUM CHLORIDE 0.9% 1,000 ML IV ONE (16:43)
[2024-10-17] MEDS: fentaNYL (PF) 50 MCG/ML 2 ML AMP IVP ONE (17:03)
[2024-10-17] MEDS: LIDOCAINE 1% INJ 10MG/ML (20 ML MDV) SQ ONE (17:05)
[2024-10-17] MEDS: VERAPAMIL SYRINGE (5 MG/10 ML) INTRAARTER ONE (17:07)
[2024-10-17] MEDS: HEPARIN SODIUM,PORCINE 10,000 UNIT in SODIUM CHLORIDE 0.9% 1,000 ML IRRIGATION ONE (17:09)
[2024-10-17] MEDS: HEPARIN SODIUM,PORCINE (1 ML) 2,500 UNIT in SODIUM CHLORIDE 0.9% 250 ML IRRIGATION ONE (17:09)
[2024-10-17] MEDS: HEPARIN SODIUM 1,000 UN/ML (10ML VL) IVP ONE ×2 (17:12→18:08)
[2024-10-17] MEDS: PRASUGREL 10 MG TAB PO ONE (17:20)
[2024-10-17] MEDS: IOPAMIDOL-370 100ML BTL INJ ONE ×2 (17:25→18:03)
[2024-10-17] MEDS: MIDAZOLAM 2 MG/2 ML VIAL IVP ONE (17:45)
[2024-10-17] MEDS ORDERED: MAG HYDROX/AL HYDROX/SIMETH 30 ML CUP PO PRN (18:18)
[2024-10-17] MEDS ORDERED: ZOLPIDEM 5 MG TAB PO PRN (18:18)
[2024-10-17] MEDS ORDERED: RX INFO: IV CONTRAST WAS GIVEN 1 EACH MISC MISCELLANE PRN (18:18)
[2024-10-17] MEDS ORDERED: ATROPINE SULFATE 0.1 MG/ML 10ML SYRINGE IV PRN (18:18)
--- NOTE | 2024-10-17 18:30 | P.CARDCATH ---
Date of Procedure: 10/17/24 Description of Procedure: Cardiac Catheterization: The patient is a 69-year-old male with a history of hypertension and hyperlipidemia, known history of CAD status post stenting of the proximal LAD in 2012 who presented with symptoms of chest discomfort that has been going on for about 1 week, worse today, in the emergency room he was noted to have mild troponin elevation. He was evaluated by Dr. Napier. Recommendations were made regarding cardiac catheterization, the risks and the complications were discussed with the patient who is in full understanding and agreement. Procedure Description: Patient was brought to [facility] in fasting semi-sedated state after receiving Fentanyl and Benadryl achieiving moderate conscious sedated state. Using Xylocaine Anesthesia and modified Seldinger technique, a 6-Portuguese sheath was introduced in the right radial artery . Subsequently, selective coronary angiography was performed using a 5-Portuguese 3.5 bend Tamara catheter. Multiple views of the coronary artery including hemiaxial views were obtained. The right Tamara catheter was used to cross the aortic valve and LVEDP was calculated. PCI: After removing the catheters a 6 Portuguese AL 0.75 guiding catheter was introduced and after cannulating the right coronary artery ostium a 0.014 BMW J-wire with the help of a fine cross microcatheter were used to cross the total occlusion and positioned distally. After removing the microcatheter a 2.5 x 12 mm trek balloon was advanced and multiple inflations at 8 paola were done. Subsequently a [employer] [place] eye IVUS catheter was introduced and imaging was performed and revealed a distal vessel of 3.0 mm and proximally a 4.0 mm in diameter with mild calcification. After removing the catheters a 2.75 x 28 mm Xience teresita point stent was advanced with the help of a 6 Portuguese guide liner and deployed at 16 paola, after removing the balloon a 3.5 x 18 mm Xience teresita point stent was advanced proximal to the first 1 and deployed at 14 paola. After removing the balloon repeat IVUS imaging was performed and subsequently a 3.25 x 15 mm NC trek balloon and multiple inflation in the distal stent were performed at 12 paola and after removing the balloon a 4.0 x 15 mm NC trek balloon was advanced and 2 inflations at the proximal stent were performed at 12 paola. After removing the wire images were obtained and revealed stable successful stenting. Following that, catheter and sheath were removed. Hemostasis was obtained with deployment of vascular band . There was no immediate complication. Patient was returned to room in stable condition. Of note, the patient received a total of 11,000 units of intravenous heparin as well as intra-arterial verapamil. He received an oral loading dose of prasugrel, his ACT was followed. At the end the procedure his chest discomfort improved and there was no EKG changes. Findings: Left main: This is a large size vessel, bifurcating into left circumflex and LAD, the left main has 10 to 20% plaque in the midsegment with no high-grade stenosis LAD: This is a large size vessel, reaching to the apex, tapers down in the distal third, gives rise to a large diagonal branch. The stented segment in the proximal LAD is patent with no significant in-stent restenosis. There is a 70% stenosis at the ostium of the diagonal branch and mild intimal disease in the LAD. Left circumflex: This is a large nondominant vessel giving rise to a distal large obtuse marginal branch the first obtuse marginal branch is very proximal. The left circumflex has mild intimal disease with no high-grade stenosis RCA: This is a large dominant vessel tortuous proximally and totally occluded in the distal segment with no significant antegrade flow. There was faint collaterals from the left coronary system toward the right PDA Left Ventriculogram: Not performed Hemodynamics: There was no gradient across the aortic valve, LVEDP was 20-24 mmHg Conclusion: 1. Acutely occluded distal RCA 2. Patent stent in the proximal LAD 3. Mild disease in the left circumflex 4. Successful stenting of the distal RCA with reduction of stenosis from 100% to 0% using IVUS imaging and JIMENA-3 flow Recommendations: The patient will continue on aspirin and prasugrel for 1 year without any interruption in addition to aggressive coronary risks modification, attempting to maintain LDL below 70 mg/dL. The findings and the recommendations were discussed with the patient and the family and they were in full understanding and agreement. Duration of sedation is 62 minutes.
[2024-10-17] MEDS: MORPHINE SULFATE 4 MG/ML SYRINGE IV PRN (19:46)
[2024-10-17] MEDS: TAMSULOSIN 0.4 MG CAP.ER.24H PO SCH (19:47)
[2024-10-17] MEDS: METOPROLOL TARTRATE 25 MG TAB PO SCH (19:47)
[2024-10-17] MEDS: SODIUM CHLORIDE 0.9% 1,000 ML in EMPTY BAG 1 BAG IV SCH ×2 (20:54→23:47)
[2024-10-18 04:13] VITALS: RESP 18; TEMP 97.9
[2024-10-18 07:00] LABS: African American GFR (CKD) >90 (>60 ml/min/1.73 sqM); Anion Gap 7 mmol/L; Blood Urea Nitrogen 17 mg/dL (9-20); Calcium 8.7 mg/dL (8.4-10.2); Carbon Dioxide 26 mmol/L (22-30); Chloride 102 mmol/L (98-107); Glucose 113 mg/dL (74-99); Non-African American GFR(CKD) 90 (>60 ml/min/1.73 sqM); Potassium 4.2 mmol/L (3.5-5.1); Sodium 135 mmol/L (137-145)
[2024-10-18] MEDS ORDERED: HEPARIN SODIUM,PORCINE (1 ML) 2,500 UNIT in SODIUM CHLORIDE 0.9% 250 ML IRRIGATION PRN (07:00)
[2024-10-18] MEDS ORDERED: HEPARIN SODIUM,PORCINE 10,000 UNIT in SODIUM CHLORIDE 0.9% 1,000 ML IRRIGATION PRN (07:00)
[2024-10-18 08:20] LABS: Basophils % (A) 0 %; Eosinophils # (A) 0.1 k/uL (0-0.7); Eosinophils % (A) 1 %; HCT 40.7 % (39.0-53.0); Lymphocytes # (A) 1.3 k/uL (1.0-4.8); Lymphocytes % (A) 17 %; MCH 32.7 pg (25.0-35.0); Macrocytosis Slight; Mean Platelet Volume 7.4; Monocytes # (A) 0.5 k/uL (0-1.0); Monocytes % (A) 7 %; Neutrophils # (A) 5.4 k/uL (1.3-7.7); Neutrophils % (A) 73 %; Platelet Count 200 k/uL (150-450); RBC 3.99 m/uL (4.30-5.90); WBC 7.5 k/uL (3.8-10.6)
[2024-10-18] MEDS: ATORVASTATIN 80 MG TAB PO SCH (08:31)
[2024-10-18] MEDS: PRASUGREL 10 MG TAB PO SCH (08:31)
[2024-10-18] MEDS: lisinopriL 20 MG TAB PO SCH (08:31)
[2024-10-18] MEDS: SPIRONOLACTONE 25 MG TAB PO SCH (08:31)
[2024-10-18] MEDS: ASPIRIN 81 MG PO SCH (08:31)
--- NOTE | 2024-10-18 13:38 | CA ---
Transthoracic Echo Report Name: Steve Alexander Age: 69 Gender: M : 1955 Exam Date: 10/18/2024 10:51 Exam Location: [facility] Ht (in): 68 Wt (lb): 290 Ordering Physician: Maurizio Napier DO ([id number]) Attending/Referring Phys: Tailing Hand Vannessa Rice, GAIL Procedure CPT: Indications: re: CP, Cardiomyopathy, unspecified Cardiac Hx: Technical Quality: Poor, Technically difficult study Contrast 1: Total Dose (mL): Contrast 2: Total Dose (mL): MEASUREMENTS (Male / Female) Normal Values 2D ECHO LV Diastolic Diameter PLAX 6.2 cm 4.2 - 5.9 / 3.9 - 5.3 cm LV Systolic Diameter PLAX 4.1 cm IVS Diastolic Thickness 1.4 cm 0.6 - 1.0 / 0.6 - 0.9 cm LVPW Diastolic Thickness 1.5 cm 0.6 - 1.0 / 0.6 - 0.9 cm LV Relative Wall Thickness 0.5 RV Internal Dim ED PLAX 2.6 cm LA Systolic Diameter LX 4.3 cm 3.0 - 4.0 / 2.7 - 3.8 cm LA Volume 56.2 cm??? 18 - 58 / 22 - 52 cm??? LA Volume Index 21.8 cm???/m??? 16 - 28 cm???/m??? M-MODE Aortic Root Diameter MM 4.2 cm LA Systolic Diameter MM 3.5 cm LA Ao Ratio MM 0.8 AV Cusp Separation MM 2.1 cm DOPPLER MV Area PHT 2.5 cm??? Mitral E Point Velocity 65.4 cm/s Mitral A Point Velocity 84.5 cm/s Mitral E to A Ratio 0.8 MV Deceleration Time 298.4 ms TR Peak Velocity 235.9 cm/s TR Peak Gradient 22.3 mmHg Right Atrial Pressure 15.0 mmHg Pulmonary Artery Systolic Pressu 37.3 mmHg Right Ventricular Systolic Press 37.3 mmHg FINDINGS Left Ventricle Left ventricular ejection fraction is estimated at 30-35 %. Mildly increased septal wall thickness. Mildly increased left ventricular diastolic diameter. Moderately reduced global left ventricular systolic function. No evidence of LV thrombus on contrast imaging Right Ventricle Right ventricular dilatation. Mild pulmonary hypertension. Right Atrium Mild right atrial dilatation. Left Atrium Mildly increased left atrial diameter. Mitral Valve Structurally normal mitral valve. Mild mitral regurgitation. No mitral stenosis. Aortic Valve Trileaflet aortic valve. Diffuse thickening (sclerosis) of the aortic valve cusps without reduced excursion. Trace aortic regurgitation. Tricuspid Valve Structurally normal tricuspid valve. Mild tricuspid regurgitation. No tricuspid stenosis. Pulmonic Valve Structurally normal pulmonic valve. Mild pulmonic regurgitation. No pulmonic stenosis. Pericardium No pericardial or pleural effusion. Aorta Moderate aortic dilatation at the level of the sinuses of valsalva (root). CONCLUSIONS Poor, Technically difficult study. LVEF 30 to 35% Mild concentric LVH Mild mildly dilated RV with mildly reduced systolic function. Mild pulmonary hypertension with RVSP of 37 mmHg Mild biatrial dilatation Mild MR Mild TR Previewed by: Dr Sam Haines (Electronically Signed) Final Date: 18 October 2024 13:37
[2024-10-18 13:47] VITALS: BP 121/72; PULSE 66
--- NOTE | 2024-10-18 14:47 | P.PN ---
Subjective Progress Note Date: 10/18/24 HISTORY OF PRESENTING ILLNESS This is a pleasant 69-year-old with past medical history significant for hyp ertension, hyperlipidemia, CAD with PCI of the LAD, prostate cancer in remission. He follows in the office with Dr. De Leon. He states he had been feeling okay and then last night developed substernal chest pain radiating across his chest and into his back. He associated shortness of breath. He came to emergency department and original troponin normal and EKG unrevealing and patient left AGAINST MEDICAL ADVICE. Patient went to sleep and then woke up with recurrence of chest pain which was worse this morning and therefore came back to emergency department. He states chest pain has been constant approximately an 8 out of 10 with associated nausea this morning which nausea has improved and some shortness of breath. He states this feels similar to when he had his CO before. EKG shows normal sinus rhythm with some T wave inversions, ST depressions in 1 and aVL. He was given nitroglycerin without any significant improvement. Initial troponin 0.017 however increased up to 0.5 10/18 Patient seen and examined on the cardiac stepdown unit. Yesterday, patient underwent cardiac catheterization which revealed acutely occluded distal RCA, patent stent in the proximal LAD, mild disease in the left circumflex. Patient subsequently underwent successful stenting of the distal RCA with reduction of stenosis from 100% to 0% using IVUS imaging and JIMENA-3 flow. Echocardiogram is currently pending. Blood pressure 121/72, heart rate 66, pulse ox 97% on room air. Repeat blood work reveals hemoglobin 13, BUN 17 and creatinine 0.87. PHYSICAL EXAMINATION Vital signs reviewed. CONSTITUTIONAL: No apparent distress. HEENT: Head is normocephalic. Pupils are equal, round. Sclerae anicteric. Mucous membranes of the mouth are moist. No JVD. No carotid bruit. CHEST EXAMINATION: Lungs are clear to auscultation. No chest wall tenderness is noted on palpation or with deep breathing. HEART EXAMINATION: Regular rate and rhythm. S1, S2 heard. No murmurs, gallops or rub. ABDOMEN: Soft, nontender. Positive bowel sounds. EXTREMITIES: 2+ peripheral pulses, no lower extremity edema and no calf tenderness. NEUROLOGIC EXAMINATION: Patient is awake, alert and oriented x3. ASSESSMENT Non-STEMI likely type I mechanism Chest pain, nausea, shortness of breath likely related to acute coronary s yndrome Hypertension Hyperlipidemia CAD with prior PCI of LAD Obesity PLAN Continue current cardiac medications: Aspirin 81 mg daily, atorvastatin, lisinopril, metoprolol, Effient, spironolactone Obtain echocardiogram report Further recommendations to follow. Nurse practitioner note has been reviewed, I agree with documented findings and plan of care. Patient was seen and examined. Objective - Vital Signs Vital signs: Vital Signs Temp 97.9 F 10/18/24 04:00 Pulse 60 10/18/24 04:00 Resp 18 10/18/24 04:00 BP 107/63 10/18/24 04:00 Pulse Ox 94 L 10/18/24 04:00 FiO2 Intake & Output 10/17/24 10/18/24 10/18/24 18:59 06:59 18:59 Intake Total 202 240 Output Total 650 Balance 202 -650 240 Weight 131.542 kg 119.5 kg Intake: IV 202 Oral 240 Output: Urine 650 Other: Voiding Method Toilet Urinal # Voids 1 1 - Labs CBC & Chem 7: 10/18/24 06:11 10/18/24 06:11 Labs: Abnormal Lab Results - Last 24 Hours (Table) 10/17/24 10/17/24 10/18/24 Range/Units 14:14 19:00 06:11 RBC 3.99 L (4.30-5.90) m/uL MCV 102.0 H (80.0-100.0) fL Sodium (137-145) mmol/L Glucose (74-99) mg/dL Troponin I 0.571 H* 6.670 H* (0.000-0.034) ng/mL 10/18/24 Range/Units 06:11 RBC (4.30-5.90) m/uL MCV (80.0-100.0) fL Sodium 135 L (137-145) mmol/L Glucose 113 H (74-99) mg/dL Troponin I (0.000-0.034) ng/mL
--- NOTE | 2024-10-18 15:06 | P.PN ---
Subjective Progress Note Date: 10/18/24 Patient pleasant 69-year-old male came with complaints of chest pain sharp in nature radiating to the back between the shoulder blades and bilateral jaw pain going on for 4 days constant in nature not associated diaphoresis shortness of breath lightheadedness. Patient came to ER yesterday was asked to follow-up with cook candy. Patient continued to have pain because of which patient came back to ER today. Patient is an EKG which showed some mild nonspecific ST depressions in lead I which were not present on the old EKGs. Chest x-ray is within normal notes patient has history of coronary disease with stents in 2002. His pain is not similar to the pain when he had myocardial infarction and stent placement. Patient denied any fever chill cough chest pain is nonpleuritic not associate with food. 10/18/2024 Patient is evaluated today sitting up in the chair. He is post cardiac catheterization underwent stenting to the RCA. LAD stent was patent. He is currently on dual antiplatelet therapy with aspirin 81 mg daily and prasugrel 10 mg daily. He is on high dose statin therapy 80 mg hs. patient was hoping for discharge home today however his echocardiogram comes back with an EF of 30 to 35% with mild concentric LVH, mildly dilated RV mild pulmonary hypertension, mild MR, mild TR. Review of Systems Constitutional: Denied any fatigue denied any fever. Cardio vascular: denied any chest pain, palpitations Gastrointestinal: denied any nausea, vomiting, diarrhea Pulmonary: Denied any shortness of breath cough Neurologic denied any new focal deficits All inpatient medications were reviewed and appropriate changes in these medications as dictated in the interval history and assessment and plan. PHYSICAL EXAMINATION: GENERAL: The patient is alert and oriented x3, not in any acute distress. Well developed, well nourished. Obese HEENT: Pupils are round and equally reacting to light. EOMI. No scleral icterus. No conjunctival pallor. Normocephalic, atraumatic. No pharyngeal erythema. No thyromegaly. CARDIOVASCULAR: S1 and S2 present. No murmurs, rubs, or gallops. PULMONARY: Chest is clear to auscultation, no wheezing or crackles. ABDOMEN: Soft, nontender, nondistended, normoactive bowel sounds. No palpable organomegaly. MUSCULOSKELETAL: No joint swelling or deformity. EXTREMITIES: No cyanosis, clubbing, or pedal edema. NEUROLOGICAL: Gross neurological examination did not reveal any focal deficits. SKIN: No rashes. Assessment and plan -Non-ST elevation [place] -Chest pain post PCI to the RCA on dual antiplatelet therapy -Cardiomyopathy with a EF of 30 to 35% -Coronary disease with stents in the past -Fibromyalgia -Obesity -Hyperlipidemia -Hypertension -Benign prostatic hypertrophy Full code Continue cardiac medications Echocardiogram reviewed cardiology recommending to monitor the patient for at least 1 more night further recommendations to come The impression and plan of care has been dictated by Shelia Olvera Nurse Practitioner as directed. Dr. Estephanie MD I have performed a history and physical examination and medical decision making of this patient, discussed the same with the dictator, and agree with the dictators assessment and plan as written, documented as a scribe. Based on total visit time, I have performed more than 50% of this visit. Objective - Vital Signs Vital signs: Vital Signs Temp 97.9 F 10/18/24 08:00 Pulse 66 10/18/24 08:00 Resp 18 10/18/24 08:00 BP 121/72 10/18/24 08:00 Pulse Ox 97 10/18/24 08:00 FiO2 Intake & Output 10/17/24 10/18/24 10/18/24 18:59 06:59 18:59 Intake Total 202 240 Output Total 650 Balance 202 -650 240 Weight 131.542 kg 119.5 kg Intake: IV 202 Oral 240 Output: Urine 650 Other: Voiding Method Toilet Toilet Urinal Urinal # Voids 1 1 - Labs CBC & Chem 7: 10/18/24 06:11 10/18/24 06:11 Labs: Abnormal Lab Results - Last 24 Hours (Table) 10/17/24 10/17/24 10/18/24 Range/Units 14:14 19:00 06:11 RBC 3.99 L (4.30-5.90) m/uL MCV 102.0 H (80.0-100.0) fL Sodium (137-145) mmol/L Glucose (74-99) mg/dL Troponin I 0.571 H* 6.670 H* (0.000-0.034) ng/mL 10/18/24 Range/Units 06:11 RBC (4.30-5.90) m/uL MCV (80.0-100.0) fL Sodium 135 L (137-145) mmol/L Glucose 113 H (74-99) mg/dL Troponin I (0.000-0.034) ng/mL Assessment and Plan Time with Patient: Less than 30
== END 2024-10-18 16:04 | disposition home or self-care (01) | DRG 322 ==
LOC: EC 09:51 → 6NMEDSUR 14:13 → 3SCARD 15:19 → OBSVTOIN 10-18 08:39
PROVIDERS: ADMIT Internal Medicine; ATTEND Internal Medicine
PROC: B2111ZZ Fluoroscopy of Multiple Coronary Arteries using Low Osmolar Contrast (ICD-10-PCS; 2024-10-17)
PROC: 027035Z Dilation of Coronary Artery, One Artery with Two Drug-eluting Intraluminal Devices, Percutaneous Approach (ICD-10-PCS; principal; 2024-10-17 23:30)
PROC: B240ZZ3 Ultrasonography of Single Coronary Artery, Intravascular (ICD-10-PCS; 2024-10-17 23:30)
PROC: 4A023N7 Measurement of Cardiac Sampling and Pressure, Left Heart, Percutaneous Approach (ICD-10-PCS; 2024-10-17 23:30)
DX: I21.4 Non-ST elevation (NSTEMI) myocardial infarction (principal); I27.20 Pulmonary hypertension, unspecified; I11.0 Hypertensive heart disease with heart failure; F10.20 Alcohol dependence, uncomplicated; E66.9 Obesity, unspecified; I08.1 Rheumatic disorders of both mitral and tricuspid valves; I42.9 Cardiomyopathy, unspecified; Z68.41 Body mass index [BMI] 40.0-44.9, adult; I50.9 Heart failure, unspecified; E78.5 Hyperlipidemia, unspecified; I25.10 Atherosclerotic heart disease of native coronary artery without angina pectoris; I25.2 Old myocardial infarction; G89.29 Other chronic pain; M54.40 Lumbago with sciatica, unspecified side; Z88.2 Allergy status to sulfonamides; I45.9 Conduction disorder, unspecified; M79.7 Fibromyalgia; N40.0 Benign prostatic hyperplasia without lower urinary tract symptoms; Z71.6 Tobacco abuse counseling; Z79.82 Long term (current) use of aspirin; Z79.899 Other long term (current) drug therapy; Z85.46 Personal history of malignant neoplasm of prostate; Z92.3 Personal history of irradiation; Z79.02 Long term (current) use of antithrombotics/antiplatelets; Z95.5 Presence of coronary angioplasty implant and graft
CPT/HCPCS: 36415; 71046; 80048; 80053; 83735; 83880; 84484; 85025; 85610; 85730; 92978; 93005; 93306; 93458; 96365; 96375; 99285

== ENCOUNTER 2024-10-21 23:04 | Inpatient (IN) | payer MEDICARE, BC ==
--- NOTE | 2024-10-21 23:38 | ED ---
SOB HPI - General Chief Complaint: Shortness of Breath Stated Complaint: Back pain SOB Time Seen by Provider: 10/21/24 23:14 Source: patient, RN notes reviewed, old records reviewed Mode of arrival: wheelchair - History of Present Illness Initial Comments: This is a 69-year-old male to the ER for evaluation of chest pain and shortness of breath initially started with shortness of breath this afternoon worse when he lays down flat. Patient states he was stressed out because he was unable to get his Plavix that he was supposed to be taking after getting stents placed last but he did take them today. Patient has no fever cough congestion no travel history or sick contacts, patient shortness of breath is now returned and is a chest pain and chest pain is persistent that feels just like his chest pain prior to getting the stents MD Complaint: shortness of breath, chest pain -: hour(s) Severity: moderate Severity scale (1-10): 4 Quality: sharp, stabbing Consistency: constant Improves With: nothing Worsens With: nothing Context: anxiety, recent illness Treatments Prior to Arrival: none - Related Data Home Medications Medication Instructions Recorded Confirmed Nitroglycerin Sl Tabs [Nitrostat] 0.4 mg SL Q5M PRN 01/15/15 10/17/24 Metoprolol Tartrate 25 mg PO BID 01/16/15 10/17/24 Spironolactone [Aldactone] 25 mg PO DAILY 01/16/15 10/17/24 Tamsulosin HCl [Flomax] 0.4 mg PO BID 07/05/19 10/17/24 lisinopriL 20 mg PO DAILY 07/05/19 10/17/24 Aspirin [Adult Low Dose Aspirin EC] 81 mg PO DAILY 04/04/23 10/17/24 Oxybutynin ER [Ditropan XL] 15 mg PO DAILY 04/04/23 10/17/24 Cyclobenzaprine [Flexeril] 10 mg PO HS 10/17/24 10/17/24 HYDROcodone/APAP 10-325MG [Downing 1 tab PO QID 10/17/24 10/17/24 10-325] Omeprazole 20 mg PO DAILY 10/17/24 10/17/24 Previous Rx's Medication Instructions Recorded Atorvastatin [Lipitor] 80 mg PO DAILY #30 tab 10/18/24 Prasugrel [Effient] 10 mg PO DAILY #60 tab 10/18/24 Allergies Allergy/AdvReac Type Severity Reaction Status Date / Time Sulfa (Sulfonamide Allergy Rash/Hives Verified 10/21/24 23:08 Antibiotics) Review of Systems ROS Statement: Those systems with pertinent positive or pertinent negative responses have been documented in the HPI. ROS Other: All systems not noted in ROS Statement are negative. Past Medical History Past Medical History: Coronary Artery Disease (CAD), Cancer, Chest Pain / Angina, Heart Failure, Fibromyalgia, Hyperlipidemia, Hypertension, Myocardial Infarction (ME), Musculoskeletal Disorder, Osteoarthritis (OA), Prostate Disorder Additional Past Medical History / Comment(s): Prostate cancer with radiation in 2016, BPH, arthritis in multiple joints, chronic low back pain with bilateral sciatica, Last Myocardial Infarction Date:: 2012 History of Any Multi-Drug Resistant Organisms: None Reported Past Surgical History: Back Surgery, Heart Catheterization, Heart Catheterization With Stent, Joint Replacement, Orthopedic Surgery Additional Past Surgical History / Comment(s): 2014 cardiac cath, 2012 PCI with stents to LAD, L knee arthroscopy, total R knee, L shoulder arthroscopy, L carpal tunnel release, colonoscopy. pain clinic procedures Past Anesthesia/Blood Transfusion Reactions: No Reported Reaction Additional Past Anesthesia/Blood Transfusion Reaction / Comment(s): no hx blood transfusion Date of Last Stent Placement:: 2012 Past Psychological History: No Psychological Hx Reported Smoking Status: Never smoker Past Alcohol Use History: Occasional Past Drug Use History: Marijuana - Past Family History Father Family Medical History: Cancer Additional Family Medical History / Comment(s): kidney/bone cancer- of at the age of 59yrs. Mother Family Medical History: Musculoskeletal Disorder, Neurologic Disorder Additional Family Medical History / Comment(s): Mother of Ghada Braeden's disease General Exam General appearance: alert, in no apparent distress Head exam: Present: atraumatic, normocephalic, normal inspection Eye exam: Present: normal appearance, PERRL, EOMI. Absent: scleral icterus, conjunctival injection, periorbital swelling ENT exam: Present: normal exam, mucous membranes moist Neck exam: Present: normal inspection. Absent: tenderness, meningismus, lymphadenopathy Respiratory exam: Present: normal lung sounds bilaterally. Absent: respiratory distress, wheezes, rales, rhonchi, stridor Cardiovascular Exam: Present: regular rate, normal rhythm, normal heart sounds. Absent: systolic murmur, diastolic murmur, rubs, gallop, clicks GI/Abdominal exam: Present: soft, normal bowel sounds. Absent: distended, tenderness, guarding, rebound, rigid Extremities exam: Present: normal inspection, full ROM, normal capillary refill. Absent: tenderness, pedal edema, joint swelling, calf tenderness Back exam: Present: normal inspection Neurological exam: Present: alert, oriented X3, CN II-XII intact Psychiatric exam: Present: normal affect, normal mood Skin exam: Present: warm, dry, intact, normal color. Absent: rash Course Vital Signs 10/21/24 10/21/24 10/22/24 23:05 23:59 03:08 Temperature 97.6 F 98.9 F 98.6 F Pulse Rate 79 74 64 Respiratory 18 20 18 Rate Blood Pressure 186/104 122/90 143/72 O2 Sat by Pulse 94 L 95 94 L Oximetry 10/22/24 05:55 Temperature 97.9 F Pulse Rate 74 Respiratory 8 L Rate Blood Pressure 129/69 O2 Sat by Pulse 95 Oximetry - Reevaluation(s) Reevaluation #1: 10/22/24 00:19 Medical records reviewed Inpatient hospitalization with stent placement on 10/17 Reevaluation #2: 10/22/24 00:19 Patient's chest pain is persistent and shortness of breath Reevaluation #3: 10/22/24 00:20 Patient informed of results and questions answered Reevaluation #4: Was pt. sent in by a medical professional or institution (, PA, [employer], urgent care, hospital, or [facility]...) When possible be specific @ -no Did you speak to anyone other than the patient for history (EMS, parent, family, police, friend...)? What history was obtained from this source @ -no Did you review nursing and triage notes (agree or disagree)? Why? @ -agree Are old charts reviewed (outside hosp., previous admission, EMS record, old EKG, old radiological studies, urgent care reports/EKG's, [facility] records)? Report findings @ -yes Differential Diagnosis (chest pain, altered mental status, abdominal pain women, abdominal pain men, vaginal bleeding, weakness, fever, dyspnea, syncope, headache, dizziness, GI bleed, back pain, seizure, CVA, palpatations, mental health, musculoskeletal)? @ -prior EKG interpreted by me (3pts min.). @ -yes X-rays interpreted by me (1pt min.). @ -yes negative for acute disease CT interpreted by me (1pt min.). @ -no U/S interpreted by me (1pt. min.). @ -no What testing was considered but not performed or refused? (CT, X-rays, U/S, labs)? Why? @ -none What meds were considered but not given or refused? Why? @ -none Did you discuss the management of the patient with other professionals (professionals i.e. Dr., PA, [employer], lab, RT, psych nurse, social welfare administrator, donor specialist, teacher, worldwide chief creative officer, supportive employment case manager)? Give summary @ -no Was smoking cessation discussed for >3mins.? @ -no Was critical care preformed (if so, how long)? @ -no Were there social determinants of health that impacted care today? How? (Homelessness, low income, unemployed, alcoholism, drug addiction, transportation, low edu. Level, literacy, decrease access to med. care, halfway, rehab)? @ -none Was there de-escalation of care discussed even if they declined (Discuss DNR or withdrawal of care, Hospice)? DNR status @ -no What co-morbidities impacted this encounter? (DM, HTN, Smoking, COPD, CAD, Cancer, CVA, ARF, Chemo, Hep., AIDS, mental health diagnosis, sleep apnea, morbid obesity)? @ -none Was patient admitted / discharged? Hospital course, mention meds given and route, prescriptions, significant lab abnormalities, going to OR and other pertinent info. @ - Undiagnosed new problem with uncertain prognosis? @ -no Drug Therapy requiring intensive monitoring for toxicity (Heparin, Nitro, Insulin, Cardizem)? @ -no Were any procedures done? @ -no Diagnosis/symptom? @ - Acute, or Chronic, or Acute on Chronic? @ -Acute Uncomplicated (without systemic symptoms) or Complicated (systemic symptoms)? @ -Complicated Side effects of treatment? @ -no Exacerbation, Progression, or Severe Exacerbation? @ -exacerbation Poses a threat to life or bodily function? How? (Chest pain, USA, ME, pneumonia, PE, COPD, DKA, ARF, appy, cholecystitis, CVA, Diverticulitis, Homicidal, Suicidal, threat to staff... and all critical care pts) @ -yes Reevaluation #5: Differential Chest Pain: Stable Angina, Unstable Angina, STEMI, NSTEMI Aortic Dissection, Pneumothorax, Musculoskeletal, Esophageal Spasm GERD, Cholecystitis, Pancreatitis, Zoster, this is not meant to be an all-inclusive list. Differential Dyspnea: Coronary syndrome, arrhythmia, tamponade, asthma, COPD, pulmonary embolism, pneumonia, pneumothorax, pulmonary effusion, anaphylaxis, diabetic ketoacidosis, flailed chest, pulmonary contusion, diaphragmatic rupture, anemia, neuromuscular, this is not meant to be an all-inclusive list. - Consultations Consultation #1: Spoke with [facility] who agrees to admit this for Medical Decision Making - Medical Decision Making 69 male with acute ACS unstable angina after stent placement 4 days ago. Patient will be admitted on heparin given Plavix and to continue patient by cardiology I did not get a CT scan due to elevated D-dimer because I do not think this patient has a PE, patient is on heparin irregardless for elevated troponin and troponin is trending downward - Lab Data Result diagrams: 10/21/24 23:21 10/21/24 23:21 Lab Results 10/21/24 10/21/24 10/21/24 Range/Units 23:21 23:21 23:21 WBC 7.7 (3.8-10.6) k/uL RBC 4.48 (4.30-5.90) m/uL Hgb 14.0 (13.0-17.5) gm/dL Hct 44.5 (39.0-53.0) % MCV 99.3 (80.0-100.0) fL MCH 31.3 (25.0-35.0) pg MCHC 31.5 (31.0-37.0) g/dL RDW 12.4 (11.5-15.5) % Plt Count 238 (150-450) k/uL MPV 7.1 Neutrophils % 71 % Lymphocytes % 17 % Monocytes % 7 % Eosinophils % 2 % Basophils % 1 % Neutrophils # 5.5 (1.3-7.7) k/uL Lymphocytes # 1.3 (1.0-4.8) k/uL Monocytes # 0.5 (0-1.0) k/uL Eosinophils # 0.1 (0-0.7) k/uL Basophils # 0.0 (0-0.2) k/uL PT 11.4 (10.0-12.5) sec INR 1.0 (<1.2) APTT 23.8 (22.0-30.0) sec D-Dimer 1.59 H (<0.60) mg/L FEU Sodium 135 L (137-145) mmol/L Potassium 4.5 (3.5-5.1) mmol/L Chloride 100 (98-107) mmol/L Carbon Dioxide 25 (22-30) mmol/L Anion Gap 10 mmol/L BUN 18 (9-20) mg/dL Creatinine 1.06 (0.66-1.25) mg/dL Est GFR (CKD-EPI)AfAm 84 (>60 ml/min/1.73 sqM) Est GFR (CKD-EPI)NonAf 73 (>60 ml/min/1.73 sqM) Glucose 113 H (74-99) mg/dL Calcium 9.2 (8.4-10.2) mg/dL Total Bilirubin 0.6 (0.2-1.3) mg/dL AST 40 (17-59) U/L ALT 49 (4-49) U/L Alkaline Phosphatase 61 (38-126) U/L Troponin I (0.000-0.034) ng/mL NT-Pro-B Natriuret Pep 973 pg/mL Total Protein 6.8 (6.3-8.2) g/dL Albumin 4.1 (3.5-5.0) g/dL 10/21/24 Range/Units 23:21 WBC (3.8-10.6) k/uL RBC (4.30-5.90) m/uL Hgb (13.0-17.5) gm/dL Hct (39.0-53.0) % MCV (80.0-100.0) fL MCH (25.0-35.0) pg MCHC (31.0-37.0) g/dL RDW (11.5-15.5) % Plt Count (150-450) k/uL MPV Neutrophils % % Lymphocytes % % Monocytes % % Eosinophils % % Basophils % % Neutrophils # (1.3-7.7) k/uL Lymphocytes # (1.0-4.8) k/uL Monocytes # (0-1.0) k/uL Eosinophils # (0-0.7) k/uL Basophils # (0-0.2) k/uL PT (10.0-12.5) sec INR (<1.2) APTT (22.0-30.0) sec D-Dimer (<0.60) mg/L FEU Sodium (137-145) mmol/L Potassium (3.5-5.1) mmol/L Chloride (98-107) mmol/L Carbon Dioxide (22-30) mmol/L Anion Gap mmol/L BUN (9-20) mg/dL Creatinine (0.66-1.25) mg/dL Est GFR (CKD-EPI)AfAm (>60 ml/min/1.73 sqM) Est GFR (CKD-EPI)NonAf (>60 ml/min/1.73 sqM) Glucose (74-99) mg/dL Calcium (8.4-10.2) mg/dL Total Bilirubin (0.2-1.3) mg/dL AST (17-59) U/L ALT (4-49) U/L Alkaline Phosphatase (38-126) U/L Troponin I 4.230 H* (0.000-0.034) ng/mL NT-Pro-B Natriuret Pep pg/mL Total Protein (6.3-8.2) g/dL Albumin (3.5-5.0) g/dL - EKG Data -: EKG Interpreted by Me (EKG is sinus 76 MT 178 QRS 112 QTc 480) - Radiology Data Radiology results: report reviewed (X-rays negative for acute disease), image reviewed Critical Care Time Critical Care Time: Yes Total Critical Care Time: 31 Disposition Clinical Impression: Unstable angina Disposition: ADMITTED IP TO THIS HOSP Condition: Fair Is patient prescribed a controlled substance at d/c from ED?: No Time of Disposition: 00:00
--- NOTE | 2024-10-21 23:46 | XR ---
EXAMINATION TYPE: XR chest 2V DATE OF EXAM: 10/21/2024 11:34 PM COMPARISON: Chest radiographs from 10/17/2024 CLINICAL INDICATION: Male, 69 years old with history of difficulty breathing; [facility] TECHNIQUE: XR chest 2V Frontal and lateral views of the chest. FINDINGS: Lungs/Pleura: There is no evidence of pleural effusion, focal consolidation, or pneumothorax. Pulmonary vascularity: Unremarkable. Heart/mediastinum: Cardiomediastinal silhouette is unremarkable. Musculoskeletal: No acute osseous pathology. IMPRESSION: No acute cardiopulmonary disease/process. [facility], , 10/21/2024 11:43 PM
[2024-10-22 00:10] LABS: ALT 49 U/L (4-49); AST 40 U/L (17-59); African American GFR (CKD) 84 (>60 ml/min/1.73 sqM); Albumin 4.1 g/dL (3.5-5.0); Alkaline Phosphatase 61 U/L (38-126); Anion Gap 10 mmol/L; Blood Urea Nitrogen 18 mg/dL (9-20); Calcium 9.2 mg/dL (8.4-10.2); Carbon Dioxide 25 mmol/L (22-30); Chloride 100 mmol/L (98-107); Glucose 113 mg/dL (74-99); Non-African American GFR(CKD) 73 (>60 ml/min/1.73 sqM); Potassium 4.5 mmol/L (3.5-5.1); Sodium 135 mmol/L (137-145); Total Bilirubin 0.6 mg/dL (0.2-1.3); Total Protein 6.8 g/dL (6.3-8.2)
[2024-10-22 00:12] LABS: Partial Thromboplastin Time 23.8 sec (22.0-30.0); Prothrombin Time 11.4 sec (10.0-12.5)
[2024-10-22 00:15] LABS: Basophils % (A) 1 %; Eosinophils # (A) 0.1 k/uL (0-0.7); Eosinophils % (A) 2 %; HCT 44.5 % (39.0-53.0); Lymphocytes # (A) 1.3 k/uL (1.0-4.8); Lymphocytes % (A) 17 %; MCH 31.3 pg (25.0-35.0); MCHC 31.5 g/dL (31.0-37.0); MCV 99.3 fL (80.0-100.0); Mean Platelet Volume 7.1; Monocytes # (A) 0.5 k/uL (0-1.0); Monocytes % (A) 7 %; Neutrophils # (A) 5.5 k/uL (1.3-7.7); Neutrophils % (A) 71 %; Platelet Count 238 k/uL (150-450); RBC 4.48 m/uL (4.30-5.90); RDW 12.4 % (11.5-15.5); WBC 7.7 k/uL (3.8-10.6)
[2024-10-22] MEDS ORDERED: NITROGLYCERIN SL TABS 0.4 MG TAB SUBLINGUAL PRN ×2 (00:16→19:34)
[2024-10-22 00:19] LABS: NT-Pro-B-Type Natriuretic Pept 973 pg/mL
[2024-10-22] MEDS: HEPARIN SODIUM 1,000 UN/ML (10ML VL) IV ONE ×2 (00:51→15:08)
[2024-10-22] MEDS: HEPARIN SOD,PORK IN 0.45% NACL 25,000 UNIT in 0.45% NACL 1 250ML.BAG IV SCH ×2 (00:52→15:18)
[2024-10-22] MEDS: ASPIRIN 81 MG PO STA (00:54)
[2024-10-22] MEDS: MORPHINE SULFATE 4 MG/ML SYRINGE IV PRN (06:12)
[2024-10-22] MEDS: CLOPIDOGREL 75 MG TAB PO SCH (08:24)
[2024-10-22] MEDS: ATORVASTATIN 80 MG TAB PO SCH (08:24)
[2024-10-22 10:37] LABS: Mean Platelet Volume 7.1; Platelet Count 239 k/uL (150-450)
[2024-10-22] MEDS: CLOPIDOGREL 75 MG TAB PO STA (12:44)
--- NOTE | 2024-10-22 13:21 | P.CRDCN ---
History of Present Illness Consult date: 10/22/24 History of present illness: 69-year-old male with a past medical history of hypertension, hyperlipidemia, CAD status post stenting in 2012 and 2024 presents with symptoms of chest discomfort and shortness of breath for approximately 1 week. He follows in the office with Dr. De Leon. Of note patient was seen here last week with similar symptoms and at that time underwent cardiac catheterization and successful stenting of the distal RCA. States he has not been able to get his Plavix although admits to taking it yesterday when he was finally able to get it and at that time took 4 tabs. States the symptoms of chest pain and shortness of breath are similar to that of last week right before getting stents placed. Characterizes the pain as soreness in the back, stabbing in the left shoulder blade which on arrival he rated as a 9 out of 10, nonradiating. Reports the nitro tabs he took on arrival, "took the edge off the pain ". States the shortness of breath is present on exertion as well as at rest. Family history noncontributory, and former smoker. Prior cardiac imaging: Echocardiogram 1 day after recent stent placement (10/18) showed EF of 30 to 35%, poor study. Past surgical history: stenting of the LAD in 2012 and RCA on 10/17/2024. Cardiac medications: Lisinopril 20, Aldactone 25, Toprol tartrate 25 twice daily, Lipitor 80, aspirin 81, Plavix 75 REVIEW OF SYSTEMS At the time of my exam: CONSTITUTIONAL: Denies fever or chills. CARDIOVASCULAR: +chest pain, +shortness of breath, no orthopnea, PND or palpitations. RESPIRATORY: Denies cough. GASTROINTESTINAL: Denies abdominal pain, diarrhea, constipation, nausea or vomiting. MUSCULOSKELETAL: Denies myalgias. NEUROLOGIC: Denies numbness, tingling or weakness. ENDOCRINE: Denies fatigue, weight change, polydipsia or polyurina. GENITOURINARY: Denies burning, hematuria or urgency with micturation. HEMATOLOGIC: Denies history of anemia or bleeding. PHYSICAL EXAMINATION Vital signs reviewed. CONSTITUTIONAL: No apparent distress. HEENT: Head is normocephalic. Pupils are equal, round. Sclerae anicteric. Mucous membranes of the mouth are moist. No JVD. No carotid bruit. CHEST EXAMINATION: Lungs are clear to auscultation. No chest wall tenderness is noted on palpation or with deep breathing. HEART EXAMINATION: Regular rate and rhythm. S1, S2 heard. No murmurs, gallops or rub. ABDOMEN: Soft, nontender. Positive bowel sounds. EXTREMITIES: 2+ peripheral pulses, no lower extremity edema and no calf tenderness. NEUROLOGIC EXAMINATION: Patient is awake, alert and oriented x3. ASSESSMENT NSTEMI Cardiomyopathy EF 30 to 35%, ischemic, euvolemic NYHA class III Chronic HFrEF CAD with prior PCI LAD and RCA Hypertension Hyperlipidemia Morbid obesity PLAN -No plan for cardiac catheterization at the moment, Dr. Haines spoke with Dr. De Leon and plan is to treat medically and load with Plavix -Aspirin 81, 300 mg Plavix today then continue 75 mg daily tomorrow, Lipitor 80 mg daily, metoprolol 25 mg p.o. twice daily, lisinopril 20 mg p.o. daily -Imdur 15 mg daily, titrate up as tolerated by patient -Start Ranexa 500 mg twice daily -Continue heparin drip -Recommend Entresto (if patient's insurance allows) and SGLT2 on discharge -Thank you for the consultation, cardiology will continue to follow Past Medical History Past Medical History: Coronary Artery Disease (CAD), Cancer, Chest Pain / Angina, Heart Failure, Fibromyalgia, Hyperlipidemia, Hypertension, Myocardial Infarction ([place]), Musculoskeletal Disorder, Osteoarthritis (OA), Prostate Disorde r Additional Past Medical History / Comment(s): Prostate cancer with radiation in 2015, BPH, arthritis in multiple joints, chronic low back pain with bilateral sciatica, Last Myocardial Infarction Date:: 2012 History of Any Multi-Drug Resistant Organisms: None Reported Past Surgical History: Back Surgery, Heart Catheterization, Heart Catheterization With Stent, Joint Replacement, Orthopedic Surgery Additional Past Surgical History / Comment(s): 2014 cardiac cath, 2012 PCI with stents to LAD, L knee arthroscopy, total R knee, L shoulder arthroscopy, L carpal tunnel release, colonoscopy. pain clinic procedures Past Anesthesia/Blood Transfusion Reactions: No Reported Reaction Additional Past Anesthesia/Blood Transfusion Reaction / Comment(s): no hx blood transfusion Date of Last Stent Placement:: 2012 Past Psychological History: No Psychological Hx Reported Smoking Status: Never smoker Past Alcohol Use History: Occasional Past Drug Use History: Marijuana - Past Family History Father Family Medical History: Cancer Additional Family Medical History / Comment(s): kidney/bone cancer- of at the age of 59yrs. Mother Family Medical History: Musculoskeletal Disorder, Neurologic Disorder Additional Family Medical History / Comment(s): Mother of Ghada Braeden's disease Medications and Allergies Home Medications Medication Instructions Recorded Confirmed Type Nitroglycerin Sl Tabs [Nitrostat] 0.4 mg SL Q5M PRN 01/15/15 10/22/24 History Metoprolol Tartrate 25 mg PO BID 01/16/15 10/22/24 History Spironolactone [Aldactone] 25 mg PO DAILY 01/16/15 10/22/24 History Tamsulosin HCl [Flomax] 0.4 mg PO BID 07/05/19 10/22/24 History lisinopriL 20 mg PO DAILY 07/05/19 10/22/24 History Aspirin [Adult Low Dose Aspirin EC] 81 mg PO DAILY 04/04/23 10/22/24 History Oxybutynin ER [Ditropan XL] 15 mg PO DAILY 04/04/23 10/22/24 History Cyclobenzaprine [Flexeril] 10 mg PO HS 10/17/24 10/22/24 History HYDROcodone/APAP 10-325MG [[place] 1 tab PO QID 10/17/24 10/22/24 History 10-325] Omeprazole 20 mg PO DAILY 10/17/24 10/22/24 History Atorvastatin [Lipitor] 80 mg PO DAILY #30 tab 10/18/24 10/22/24 Rx Clopidogrel [Plavix] 75 mg PO DAILY 10/22/24 10/22/24 History Allergies Allergy/AdvReac Type Severity Reaction Status Date / Time Sulfa (Sulfonamide Allergy Rash/Hives Verified 10/22/24 08:28 Antibiotics) Physical Exam Vitals: Vital Signs Temp Pulse Resp BP Pulse Ox 10/22/24 05:55 97.9 F 74 8 L 129/69 95 10/22/24 03:08 98.6 F 64 18 143/72 94 L 10/21/24 23:59 98.9 F 74 20 122/90 95 10/21/24 23:05 97.6 F 79 18 186/104 94 L Intake and Output 10/21/24 10/22/24 10/22/24 22:59 06:59 14:59 Other: Weight 131.542 kg Results 10/22/24 10:14 10/21/24 23:21 Cardiac Enzymes 10/21/24 10/21/24 10/22/24 Range/Units 23:21 23:21 03:28 AST 40 (17-59) U/L Troponin I 4.230 H* 4.130 H* (0.000-0.034) ng/mL Coagulation 10/21/24 Range/Units 23:21 PT 11.4 (10.0-12.5) sec APTT 23.8 (22.0-30.0) sec CBC 10/21/24 Range/Units 23:21 WBC 7.7 (3.8-10.6) k/uL RBC 4.48 (4.30-5.90) m/uL Hgb 14.0 (13.0-17.5) gm/dL Hct 44.5 (39.0-53.0) % Plt Count 238 (150-450) k/uL Comprehensive Metabolic Panel 10/21/24 Range/Units 23:21 Sodium 135 L (137-145) mmol/L Potassium 4.5 (3.5-5.1) mmol/L Chloride 100 (98-107) mmol/L Carbon Dioxide 25 (22-30) mmol/L BUN 18 (9-20) mg/dL Creatinine 1.06 (0.66-1.25) mg/dL Glucose 113 H (74-99) mg/dL Calcium 9.2 (8.4-10.2) mg/dL AST 40 (17-59) U/L ALT 49 (4-49) U/L Alkaline Phosphatase 61 (38-126) U/L Total Protein 6.8 (6.3-8.2) g/dL Albumin 4.1 (3.5-5.0) g/dL Current Medications Generic Name Dose Route Start Last Admin Trade Name Freq PRN Reason Stop Dose Admin Aspirin 325 mg 10/23/24 09:00 Aspirin 325 Mg Tab PO DAILY [facility] Atorvastatin Calcium 80 mg 10/22/24 09:00 10/22/24 08:24 Atorvastatin 80 Mg Tab PO 80 mg DAILY [facility] Administration Clopidogrel Bisulfate 75 mg 10/22/24 09:00 10/22/24 08:24 Clopidogrel 75 Mg Tab PO 75 mg DAILY [facility] Administration Heparin Sodium/Sodium Chloride 250 mls @ 10 mls/hr 10/22/24 00:30 10/22/24 00:52 25,000 unit/ Sodium Chloride IV 7.602 units/kg/hr .Q24H RANJANA 10 mls/hr Administration Protocol 7.602 UNITS/KG/HR Morphine Sulfate 4 mg 10/22/24 00:16 10/22/24 06:12 Morphine Sulfate 4 Mg/Ml Syringe IV 4 mg Q4HR PRN Administration Chest Pain Nitroglycerin 0.4 mg 10/22/24 00:16 Nitroglycerin Sl Tabs 0.4 Mg Tab SUBLINGUAL Q5M PRN Chest Pain Intake and Output 10/21/24 10/22/24 10/22/24 22:59 06:59 14:59 Other: Weight 131.542 kg 10/21/24 23:21 10/21/24 23:21
[2024-10-22] MEDS: HEPARIN SODIUM 1,000 UN/ML (10ML VL) IV PRN (15:16)
[2024-10-22] MEDS: TAMSULOSIN 0.4 MG CAP.ER.24H PO SCH (21:08)
[2024-10-22] MEDS: METOPROLOL TARTRATE 25 MG TAB PO SCH (21:08)
[2024-10-22] MEDS: CYCLOBENZAPRINE 10 MG TAB PO SCH (21:08)
[2024-10-22] MEDS: RANOLAZINE 500 MG TAB.ER.12H PO SCH (21:08)
[2024-10-22] MEDS: HYDROcodone/APAP 10-325MG 1 EACH TAB PO SCH (22:57)
[2024-10-23] MEDS: PANTOPRAZOLE 40 MG TABLET PO SCH (05:21)
[2024-10-23 08:22] LABS: Basophils % (A) 1 %; Eosinophils # (A) 0.2 k/uL (0-0.7); Eosinophils % (A) 3 %; HCT 41.1 % (39.0-53.0); HGB 12.9 gm/dL (13.0-17.5); Lymphocytes # (A) 1.3 k/uL (1.0-4.8); Lymphocytes % (A) 20 %; MCH 31.3 pg (25.0-35.0); MCHC 31.4 g/dL (31.0-37.0); MCV 99.8 fL (80.0-100.0); Mean Platelet Volume 7.1; Monocytes # (A) 0.5 k/uL (0-1.0); Monocytes % (A) 7 %; Neutrophils # (A) 4.4 k/uL (1.3-7.7); Neutrophils % (A) 66 %; Platelet Count 224 k/uL (150-450); RBC 4.12 m/uL (4.30-5.90); RDW 12.8 % (11.5-15.5); WBC 6.6 k/uL (3.8-10.6)
[2024-10-23 08:31] LABS: Partial Thromboplastin Time 51.3 sec (22.0-30.0); Prothrombin Time 11.1 sec (10.0-12.5)
[2024-10-23] MEDS ORDERED: NON FORMULARY DRUG (Aspirin [Adult Low Dose Aspirin Ec] 81 MG Tablet) PO SCH (09:00)
[2024-10-23] MEDS ORDERED: CLOPIDOGREL 75 MG TAB PO SCH (09:00)
[2024-10-23 09:28] VITALS: TEMP 97.8
[2024-10-23] MEDS: ATORVASTATIN 80 MG TAB PO SCH (09:33)
[2024-10-23] MEDS: SPIRONOLACTONE 25 MG TAB PO SCH (09:33)
[2024-10-23] MEDS: lisinopriL 20 MG TAB PO SCH (09:34)
[2024-10-23] MEDS: ASPIRIN 325 MG TAB PO SCH (09:34)
[2024-10-23] MEDS: OXYBUTYNIN 15 MG TAB.ER.24 PO SCH (09:34)
[2024-10-23] MEDS: ISOSORBIDE MONONITRATE ER 15 MG TAB PO SCH (09:34)
[2024-10-23 10:56] LABS: Chol/HDL Ratio 2.43 Ratio; LDL Cholesterol,Calculated 51.7 mg/dL (0.0-131.0); VLDL Calculation 12.36 mg/dL (5.00-40.00)
[2024-10-23 12:57] VITALS: BP 124/65; PULSE 62; RESP 19
--- NOTE | 2024-10-23 15:59 | P.PN ---
Subjective 69-year-old male with a past medical history of hypertension, hyperlipidemia, CAD status post stenting in 2012 and 2024 presents with symptoms of chest discomfort and shortness of breath for approximately 1 week. He follows in the office with Dr. De Leon. Of note patient was seen here last week with similar symptoms and at that time underwent cardiac catheterization and successful stenting of the distal RCA. States he has not been able to get his Plavix although admits to taking it yesterday when he was finally able to get it and at that time took 4 tabs. States the symptoms of chest pain and shortness of breath are similar to that of last week right before getting stents placed. Characterizes the pain as soreness in the back, stabbing in the left shoulder blade which on arrival he rated as a 9 out of 10, nonradiating. Reports the nit ro tabs he took on arrival, "took the edge off the pain ". States the shortness of breath is present on exertion as well as at rest. Family history noncontributory, and former smoker. Prior cardiac imaging: Echocardiogram 1 day after recent stent placement (10/18) showed EF of 30 to 35%, poor study. Past surgical history: stenting of the LAD in 2012 and RCA on 10/17/2024. Cardiac medications: Lisinopril 20, Aldactone 25, Toprol tartrate 25 twice daily, Lipitor 80, aspirin 81, Plavix 75 10/23: Patient seen and examined in the cardiac stepdown floor. No significant overnight events. Patient states this morning he is feeling much better and his chest pain and shortness of breath have improved significantly. States he was able to walk around the unit this morning without any chest pain shortness of breath or palpitations. Vitals heart rate 62, respiratory rate 19, BP 124/65, and 94 L oxygen saturation on room air. Labs significant for WBC 6.6, hemoglobin 12.9, APTT 51.3, triglycerides 61, cholesterol 109, LDL 51, and HDL 44.9. REVIEW OF SYSTEMS At the time of my exam: CONSTITUTIONAL: Denies fever or chills. CARDIOVASCULAR: no chest pain, no shortness of breath, no orthopnea, PND or palpitations. RESPIRATORY: Denies cough. GASTROINTESTINAL: Denies abdominal pain, diarrhea, constipation, nausea or vomiting. MUSCULOSKELETAL: Denies myalgias. NEUROLOGIC: Denies numbness, tingling or weakness. ENDOCRINE: Denies fatigue, weight change, polydipsia or polyurina. GENITOURINARY: Denies burning, hematuria or urgency with micturation. HEMATOLOGIC: Denies history of anemia or bleeding. PHYSICAL EXAMINATION Vital signs reviewed. CONSTITUTIONAL: No apparent distress. HEENT: Head is normocephalic. Pupils are equal, round. Sclerae anicteric. Mucous membranes of the mouth are moist. No JVD. No carotid bruit. CHEST EXAMINATION: Lungs are clear to auscultation. No chest wall tenderness is noted on palpation or with deep breathing. HEART EXAMINATION: Regular rate and rhythm. S1, S2 heard. No murmurs, gallops or rub. ABDOMEN: Soft, nontender. Positive bowel sounds. EXTREMITIES: 2+ peripheral pulses, no lower extremity edema and no calf tenderness. NEUROLOGIC EXAMINATION: Patient is awake, alert and oriented x3. ASSESSMENT NSTEMI Cardiomyopathy EF 30 to 35%, ischemic, euvolemic NYHA class III Chronic HFrEF CAD with prior PCI LAD and RCA Hypertension Hyperlipidemia Morbid obesity PLAN -Dr. Haines spoke with Dr. De Leon who stated the patient should be taken off heparin and allowed to walk around the unit, if he experiences no chest pain during this time he can be discharged -Aspirin 81, Plavix 75 mg daily, Lipitor 80 mg daily, metoprolol 25 mg p.o. twice daily, lisinopril 20 mg p.o. daily -Continue Ranexa 500 mg twice daily -Discontinue heparin drip -Recommend Entresto (if patient's insurance allows) and SGLT2 on discharge -Added Farxiga 10 mg daily to patient's discharge medication list Objective - Vital Signs Vital signs: Vital Signs Temp 97.8 F 10/23/24 09:26 Pulse 62 10/23/24 12:56 Resp 19 10/23/24 12:56 BP 124/65 10/23/24 12:56 Pulse Ox 94 L 10/23/24 12:56 FiO2 Intake & Output 10/22/24 10/23/24 10/23/24 18:59 06:59 18:59 Intake Total 123.861 118 Balance 123.861 118 Weight 134.8 kg Intake: Intake, IV Titration 123.861 Amount Heparin Sod,Pork in 0.45% 123.861 NaCl 25,000 unit In 0.45 % NaCl 1 250ml.bag @ 10.6 UNITS/KG/HR 13.943 mls/ hr IV .[id number] [facility] Rx#: [id number] Oral 118 Other: Voiding Method Toilet Toilet # Voids 1 - Labs CBC & Chem 7: 10/23/24 07:53 10/21/24 23:21 Labs: Abnormal Lab Results - Last 24 Hours (Table) 10/22/24 10/23/24 10/23/24 Range/Units 23:00 07:53 07:53 RBC 4.12 L (4.30-5.90) m/uL Hgb 12.9 L (13.0-17.5) gm/dL APTT 36.6 H 51.3 H (22.0-30.0) sec
[2024-10-24] MEDS ORDERED: ASPIRIN 81 MG PO SCH (09:00)
--- NOTE | 2024-10-24 20:15 | P.HPIM ---
History of Present Illness H&P Date: 10/22/24 69-year-old male with a past medical history of hypertension, hyperlipidemia, CAD status post stenting in 2012 and 2024 presents with symptoms of chest discomfort and shortness of breath for approximately 1 week. He follows in the office with Dr. De Leon. Patient was discharged back on October 18 after receiving a stent to the RCA. Patient was admitted during the hospital stay due to chest pain shortness of nature rating to the back have been ongoing for 4 days he came in there was concern for NSTEMI he was taken to the cardiac catheterization lab which revealed an occluded distal RCA and a patent stent in the proximal LAD and mild disease in left circumflex. Patient had successful stenting of the distal RCA with reduction of stenosis from 100% to 0%. Patient was started on dual antiplatelet therapy with aspirin and prasugrel and was discharged on high-dose statin therapy. Patient echocardiogram was found to be 30 to 35% ejection fraction with mild pulmonary hypertension mild TR mild MR patient was chest pain-free on discharge. Cardiology had wanted to keep the patient for 1 more night however patient wanted to discharge home. Apparently there was an issue with the cost of the Effient and patient notified his cardiology office he was not able to get the Plavix at his pharmacy until Monday during that time he began experiencing chest pain again so he came to the hospital for further evaluation. Patient was admitted with cardiology consultation. He was loaded up with Plavix and monitored overnight on cardiac telemetry. He is evaluated a chest pain-free no shortness of breath. He now has Plavix at home and will be discharged. REVIEW OF SYSTEMS: CONSTITUTIONAL: No fever, no malaise, no fatigue. HEENT: No recent visual problems or hearing problems. Denied any sore throat. CARDIOVASCULAR: No chest pain, orthopnea, PND, no palpitations, no syncope. PULMONARY: No shortness of breath, no cough, no hemoptysis. GASTROINTESTINAL: No diarrhea, no nausea, no vomiting, no abdominal pain. NEUROLOGICAL: No headaches, no weakness, no numbness. HEMATOLOGICAL: Denies any bleeding or petechiae. GENITOURINARY: Denies any burning micturition, frequency, or urgency. MUSCULOSKELETAL/RHEUMATOLOGICAL: Denies any joint pain, swelling, or any muscle pain. ENDOCRINE: Denies any polyuria or polydipsia. The rest of the 14-point review of systems is negative. PHYSICAL EXAMINATION: GENERAL: The patient is alert and oriented x3, not in any acute distress. Well developed, well nourished. HEENT: Pupils are round and equally reacting to light. EOMI. No scleral icterus. No conjunctival pallor. Normocephalic, atraumatic. No pharyngeal erythema. No thyromegaly. CARDIOVASCULAR: S1 and S2 present. No murmurs, rubs, or gallops. PULMONARY: Chest is clear to auscultation, no wheezing or crackles. ABDOMEN: Soft, nontender, nondistended, normoactive bowel sounds. No palpable organomegaly. MUSCULOSKELETAL: No joint swelling or deformity. EXTREMITIES: No cyanosis, clubbing, or pedal edema. NEUROLOGICAL: Gross neurological examination did not reveal any focal deficits. SKIN: No rashes. Assessment and plan -Coronary artery disease with recent PCI to the RCA on dual antiplatelet therapy -Recent admission for Non-STEMI likely type I mechanism -Cardiomyopathy with a EF of 30 to 35% -Coronary disease with stents in the past -Fibromyalgia -Obesity -Hyperlipidemia -Hypertension -Benign prostatic hypertrophy -Obesity GI prophylaxis Plan Patient was resumed on all appropriate cardiac medications he was loaded up with Plavix He will be monitored overnight on cardiac telemetry. Possible discharge home in the next 24 hours Please see medication reconciliation for a list of current medications. Thank you for allowing us to participate in the care of this patient. The impression and plan of care has been dictated by Shelia Olvera, Nurse Practitioner as directed. Dr. Estephanie MD I have performed a history and physical examination and medical decision making of this patient, discussed the same with the dictator, and agree with the dictators assessment and plan as written, documented as a scribe. Based on total visit time, I have performed more than 50% of this visit. Past Medical History Past Medical History: Coronary Artery Disease (CAD), Cancer, Chest Pain / Angina, Heart Failure, Fibromyalgia, Hypertension, Myocardial Infarction ([place]), Musculoskeletal Disorder, Osteoarthritis (OA), Prostate Disorder Additional Past Medical History / Comment(s): Prostate cancer with radiation in 2016, BPH, arthritis in multiple joints, chronic low back pain with bilateral sciatica, Last Myocardial Infarction Date:: 2012 History of Any Multi-Drug Resistant Organisms: None Reported Past Surgical History: Back Surgery, Heart Catheterization, Heart Catheterization With Stent, Joint Replacement, Orthopedic Surgery Additional Past Surgical History / Comment(s): 2014 cardiac cath, 2012 PCI with stents to LAD, L knee arthroscopy, total R knee, L shoulder arthroscopy, L carpal tunnel release, colonoscopy. pain clinic procedures, spinal fusion Past Anesthesia/Blood Transfusion Reactions: No Reported Reaction Additional Past Anesthesia/Blood Transfusion Reaction / Comment(s): no hx blood transfusion Date of Last Stent Placement:: 2012 Smoking Status: Never smoker - Past Family History Father Family Medical History: Cancer Additional Family Medical History / Comment(s): kidney/bone cancer- of at the age of 59yrs. Mother Family Medical History: Musculoskeletal Disorder, Neurologic Disorder Additional Family Medical History / Comment(s): Mother of Ghada Braeden's disease Medications and Allergies Home Medications Medication Instructions Recorded Confirmed Type Nitroglycerin Sl Tabs [Nitrostat] 0.4 mg SL Q5M PRN 01/15/15 10/22/24 History Metoprolol Tartrate 25 mg PO BID 01/16/15 10/22/24 History Spironolactone [Aldactone] 25 mg PO DAILY 01/16/15 10/22/24 History Tamsulosin HCl [Flomax] 0.4 mg PO BID 07/05/19 10/22/24 History lisinopriL 20 mg PO DAILY 07/05/19 10/22/24 History Aspirin [Adult Low Dose Aspirin EC] 81 mg PO DAILY 04/04/23 10/22/24 History Oxybutynin ER [Ditropan XL] 15 mg PO DAILY 04/04/23 10/22/24 History Cyclobenzaprine [Flexeril] 10 mg PO HS 10/17/24 10/22/24 History HYDROcodone/APAP 10-325MG [[place] 1 tab PO QID 10/17/24 10/22/24 History 10-325] Omeprazole 20 mg PO DAILY 10/17/24 10/22/24 History Atorvastatin [Lipitor] 80 mg PO DAILY #30 tab 10/18/24 10/22/24 Rx Clopidogrel [Plavix] 75 mg PO DAILY 10/22/24 10/22/24 History Dapagliflozin Propanediol [Farxiga] 10 mg PO DAILY #30 tablet 10/23/24 Rx Allergies Allergy/AdvReac Type Severity Reaction Status Date / Time Sulfa (Sulfonamide Allergy Rash/Hives Verified 10/22/24 08:28 Antibiotics) Physical Exam Vitals: Vital Signs Temp Pulse Pulse Resp BP BP Pulse Ox 10/23/24 12:56 62 19 124/65 94 L 10/23/24 09:26 97.8 F 63 18 139/63 93 L 10/23/24 03:33 98.4 F 66 18 105/70 96 10/23/24 00:24 98.0 F 60 18 143/82 95 10/22/24 21:11 67 18 123/77 98 10/22/24 18:01 98.8 F 75 18 132/70 95 10/22/24 15:21 70 18 116/63 96 10/22/24 14:27 98.5 F 68 18 126/72 94 L Intake and Output 10/22/24 10/23/24 10/23/24 22:59 06:59 14:59 Intake Total 107.129 16.732 118 Balance 107.129 16.732 118 Intake: Intake, IV Titration 107.129 16.732 Amount Heparin Sod,Pork in 0.45% 107.129 16.732 NaCl 25,000 unit In 0.45 % NaCl 1 250ml.bag @ 10.6 UNITS/KG/HR 13.943 mls/ hr IV .[id number] [facility] Rx#: [id number] Oral 118 Other: Voiding Method Toilet Toilet # Voids 1 Weight 134.8 kg Results CBC & Chem 7: 10/23/24 07:53 10/21/24 23:21 Labs: Abnormal Lab Results - Last 24 Hours (Table) 10/22/24 10/22/24 10/23/24 Range/Units 12:08 23:00 07:53 RBC 4.12 L (4.30-5.90) m/uL Hgb 12.9 L (13.0-17.5) gm/dL APTT 36.6 H (22.0-30.0) sec Troponin I 2.710 H* (0.000-0.034) ng/mL 10/23/24 Range/Units 07:53 RBC (4.30-5.90) m/uL Hgb (13.0-17.5) gm/dL APTT 51.3 H (22.0-30.0) sec Troponin I (0.000-0.034) ng/mL Thrombosis Risk Factor Assmnt - Choose All That Apply Any of the Below Risk Factors Present?: Yes Each Factor Represents 1 point: Obesity (BMI >25) Other Risk Factors: No Other congenital or acquired thrombophilia - If yes, enter type in comment: No Thrombosis Risk Factor Assessment Total Risk Factor Score: 1 Thrombosis Risk Factor Assessment Level: Low Risk
--- NOTE | 2024-10-24 20:17 | P.DS ---
Providers Date of admission: 10/23/24 09:00 Attending physician: Emy Garza Consults: 10/22/24 00:16 Consult Physician Urgent Consulting Provider: Rufino De Leon Consult Reason/Comments: cp Do you want consulting provider notified?: Yes Primary care physician: Chase Castro MD Hospital Course: Final Diagnosis -Coronary artery disease with recent PCI to the RCA on dual antiplatelet therapy -Recent admission for Non-STEMI likely type I mechanism -Cardiomyopathy with a EF of 30 to 35% -Coronary disease with stents in the past -Fibromyalgia -Obesity -Hyperlipidemia -Hypertension -Benign prostatic hypertrophy -Obesity Discharge Disposition Patient stable for discharge home with all same home medications. He will continue dual antiplatelet therapy with aspirin and Plavix and will continue on high-dose statin therapy. Patient is a follow-up with his electronics mechanic Dr. De Leon scheduled for October [address] Chase Castro in 1 to 2 days. Hospital Course 69-year-old male with a past medical history of hypertension, hyperlipidemia, CAD status post stenting in 2012 and 2024 presents with symptoms of chest discomfort and shortness of breath for approximately 1 week. He follows in the office with Dr. De Leon. Patient was discharged back on October 18 after receiving a stent to the RCA. Patient was admitted during the hospital stay due to chest pain shortness of nature rating to the back have been ongoing for 4 days he came in there was concern for NSTEMI he was taken to the cardiac catheterization lab which revealed an occluded distal RCA and a patent stent in the proximal LAD and mild disease in left circumflex. Patient had successful stenting of the distal RCA with reduction of stenosis from 100% to 0%. Patient was started on dual antiplatelet therapy with aspirin and prasugrel and was discharged on high-dose statin therapy. Patient echocardiogram was found to be 30 to 35% ejection fraction with mild pulmonary hypertension mild TR mild MR patient was chest pain-free on discharge. Cardiology had wanted to keep the patient for 1 more night however patient wanted to discharge home. Apparently there was an issue with the cost of the Effient and patient notified his c ardiology office he was not able to get the Plavix at his pharmacy until Monday during that time he began experiencing chest pain again so he came to the hospital for further evaluation. Patient was admitted with cardiology consultation. He was loaded up with Plavix and monitored overnight on cardiac telemetry. He is evaluated a chest pain-free no shortness of breath. He now has Plavix at home and will be discharged. Please see medication reconciliation for a list of current medications. Thank you for allowing us to participate in the care of this patient. The impression and plan of care has been dictated by Shelia Olvera, Nurse Practitioner as directed. Dr. Estephanie MD I have performed a history and physical examination and medical decision making of this patient, discussed the same with the dictator, and agree with the dictators assessment and plan as written, documented as a scribe. Based on total visit time, I have performed more than 50% of this visit. Patient Condition at Discharge: Stable Plan - Discharge Summary Discharge Rx Participant: No New Discharge Prescriptions: New Dapagliflozin Propanediol [Farxiga] 10 mg PO DAILY #30 tablet Continue Nitroglycerin Sl Tabs [Nitrostat] 0.4 mg SL Q5M PRN PRN Reason: Chest Pain Metoprolol Tartrate 25 mg PO BID Spironolactone [Aldactone] 25 mg PO DAILY lisinopriL 20 mg PO DAILY Tamsulosin HCl [Flomax] 0.4 mg PO BID Oxybutynin ER [Ditropan XL] 15 mg PO DAILY Aspirin [Adult Low Dose Aspirin EC] 81 mg PO DAILY HYDROcodone/APAP 10-325MG [[place] 10-325] 1 tab PO QID Omeprazole 20 mg PO DAILY Clopidogrel [Plavix] 75 mg PO DAILY Cyclobenzaprine [Flexeril] 10 mg PO HS Atorvastatin [Lipitor] 80 mg PO DAILY #30 tab Discharge Medication List Nitroglycerin Sl Tabs [Nitrostat] 0.4 mg SL Q5M PRN 01/15/15 [History] Metoprolol Tartrate 25 mg PO BID 01/16/15 [History] Spironolactone [Aldactone] 25 mg PO DAILY 01/16/15 [History] Tamsulosin HCl [Flomax] 0.4 mg PO BID 07/05/19 [History] lisinopriL 20 mg PO DAILY 07/05/19 [History] Aspirin [Adult Low Dose Aspirin EC] 81 mg PO DAILY 04/04/23 [History] Oxybutynin ER [Ditropan XL] 15 mg PO DAILY 04/04/23 [History] Cyclobenzaprine [Flexeril] 10 mg PO HS 10/17/24 [History] HYDROcodone/APAP 10-325MG [[place] 10-325] 1 tab PO QID 10/17/24 [History] Omeprazole 20 mg PO DAILY 10/17/24 [History] Atorvastatin [Lipitor] 80 mg PO DAILY #30 tab 10/18/24 [Rx] Clopidogrel [Plavix] 75 mg PO DAILY 10/22/24 [History] Dapagliflozin Propanediol [Farxiga] 10 mg PO DAILY #30 tablet 10/23/24 [Rx] Follow up Appointment(s)/Referral(s): Rufino De Leon MD [STAFF PHYSICIAN] - 1 Week Chase Castro MD [Primary Care Provider] - 1-2 days Discharge Disposition: HOME SELF-CARE
== END 2024-10-23 14:10 | disposition home or self-care (01) | DRG 281 ==
LOC: EC 23:04 → 1SOBS 10-22 00:18 → 6NMEDSUR 10-22 00:25 → 1SOBS 10-22 00:26 → 3SCARD 10-22 07:02 → OBSVTOIN 10-23 09:00
PROVIDERS: ADMIT Hospitalist; ATTEND Hospitalist
DX: I25.110 Atherosclerotic heart disease of native coronary artery with unstable angina pectoris (principal); I50.22 Chronic systolic (congestive) heart failure; I21.4 Non-ST elevation (NSTEMI) myocardial infarction; I11.0 Hypertensive heart disease with heart failure; Z68.42 Body mass index [BMI] 45.0-49.9, adult; E66.01 Morbid (severe) obesity due to excess calories; I42.9 Cardiomyopathy, unspecified; E78.5 Hyperlipidemia, unspecified; Z95.5 Presence of coronary angioplasty implant and graft; F41.9 Anxiety disorder, unspecified; M79.7 Fibromyalgia; N40.0 Benign prostatic hyperplasia without lower urinary tract symptoms; Z79.02 Long term (current) use of antithrombotics/antiplatelets; Z79.82 Long term (current) use of aspirin; Z79.84 Long term (current) use of oral hypoglycemic drugs; Z79.899 Other long term (current) drug therapy; Z85.46 Personal history of malignant neoplasm of prostate; Z92.3 Personal history of irradiation; Z98.1 Arthrodesis status; Z96.651 Presence of right artificial knee joint; Z88.2 Allergy status to sulfonamides; Z79.891 Long term (current) use of opiate analgesic
CPT/HCPCS: 36415; 71046; 80053; 80061; 83880; 84484; 85025; 85049; 85379; 85610; 85730; 93005; 96365; 96366; 96375; 96376; 99291